=== PATIENT | female | born 1935 | race Caucasian/White ===

== ENCOUNTER 2021-01-12 17:42 | Inpatient (IN) ==
[2021-01-12 18:47] LABS: Hematocrit (blood only) 41.4 % (37-47); Hemoglobin 13.7 g/dL (12.0-16.0); Mean Corpuscular Hemoglobin 28.2 pg (25-34); Mean Corpuscular Hgb Conc 33.1 g/dL (32-36); Mean Corpuscular Volume 85.2 fL (80-100); Mean Platelet Volume 8.3 fL (7.4-10.4); Platelet Count 188 K/uL (130-400); RDW Coefficient of Variation 14.3 % (11.5-14.5); RDW Standard Deviation 44.5 fL (36.4-46.3); Red Blood Count 4.86 M/uL (4.2-5.4); White Blood Count 8.58 K/uL (4.8-10.8)
[2021-01-12 19:02] LABS: Partial Thromboplastin Time 26.5 Seconds (21.0-31.0); Prothrombin Time 9.8 Seconds (9.0-12.0)
[2021-01-12 19:03] LABS: Albumin Level 3.7 gm/dl (3.4-5.0); BUN Creatinine Ratio 20.3 (10-20); Calcium 9.2 mg/dl (8.5-10.1); Creatinine Clr Calc Pharmacy 31.9 ml/min; Est GFR (African American) 45.6 ml/min; Est GFR (Non-African American) 39.4 ml/min; Potassium 3.9 mmol/L (3.5-5.1)
[2021-01-12 19:06] LABS: Bilirubin,Total 0.5 mg/dl (0.2-1); Globulin 3.9 gm/dl (2.5-4.0); Total Protein 7.6 gm/dl (6.4-8.2)
[2021-01-12] MEDS ORDERED: SODIUM CHLORIDE 0.9% 500 ML IV ONE (20:30)
[2021-01-12] MEDS ORDERED: OPTIRAY 300 100mL IV ONE (21:20)
--- NOTE | 2021-01-12 22:35 | Emergency Department Note ---
Impression & Plan Hematochezia, Colitis, Left lower quadrant abdominal pain ED Provider Note NAME: ANNEMARIE ALY AGE: 85 SEX: F ARRIVES VIA: Walk-In INFORMANT: Patient, ED PROVIDER(S): Tarv Walker MD CHIEF COMPLAINT: Blood per rectum, abdominal pain. PLAN: Disposition: Admit MEDICAL DECISION MAKING: The patient is a pleasant 85-year-old woman who presents to the emergency department company by her daughter with concern for red blood per rectum where she reports at one point had greenish discharge as well. Otherwise she denies any recent fevers, chills, cough, congestion, nausea, vomiting, chest pain, shortness of breath, lightheadedness. They do relate that they have been under significant stress as the patient's yesterday here in the hospital. Patient reports that she did feel the need to strain and have a bowel movement preceding the onset of her symptoms. She denies any prior history of similar bleeding. She is not on any anticoagulation. On arrival the patient is no acute distress, afebrile stable vital signs. She appears clinically dry. She has mild left lower abdominal discomfort without discrete tenderness. No thrombosed external hemorrhoids. WBC, H/H and platelets within normal limits. Chemistry without metabolic acidosis. Creatinine 1.26, slightly increased from prior consistent with the patient's clinical dry appearance. LFTs without significant abnormality. Patient did attempt to move her bowels in the emergency department and gross blood was noted. CT scan of the pelvis was performed and per preliminary stat rad report demonstrates findings suggestive of mild colitis. Given the patient's suspected lower GI bleed/hemorrhagic colitis reasonable to admit the patient for further management. The patient and daughter are in agreement with this. Case was discussed with Dr. Monet, [facility] hospitalist, who will evaluate the patient for admission. Triage Nursing notes reviewed and agree them. Prior medical records reviewed Vital Signs: reviewed and remarkable for no significant abnormalities Differential diagnosis: Diverticulosis, AVM, coagulopathy, colitis, inflammatory bowel disease, malignancy, Bree-Fernandez tear, esophagitis, peptic ulcer disease, variceal bleed, gastritis, epistaxis, fissure, hemorrhoids, as well as other pathologies. ER treatment provided: See below. Diagnostics interpreted by me: Cardiac Monitoring: An order for continuous cardiac monitoring was placed and demonstrated NSR, 82 bpm, no ectopy. Laboratory studies: See below Imaging studies: [facility] Preliminary Findings Only See Final Report For Complete Findings CT ABDOMEN & PELVIS With Contrast: Distal colonic wall thickening could reflect lack of distention, but there is some pericolonic stranding about the distal descending segment. Consider a mild colitis. No pneumatosis to suggest ischemic etiology. No obstruction or perforation. Cholelithiasis without evidence of gallbladder inflammation. Unremarkable appendix. Hysterectomy. Small fatty infraumbilical ventral hernia. Radiologist: Juan Zaman M.D. Study ready at 21:30 and initial results transmitted at 22:00 Consultation(s): Case was discussed with Dr. Monet, [facility] hospitalist, who will evaluate the patient for admission. HPI: The patient is a pleasant 85-year-old woman who presents to the emergency department company by her daughter with concern for red blood per rectum where she reports at one point had greenish discharge as well. Otherwise she denies any recent fevers, chills, cough, congestion, nausea, vomiting, chest pain, shortness of breath, lightheadedness. They do relate that they have been under significant stress as the patient's yesterday here in the hospital. Patient reports that she did feel the need to strain and have a bowel movement preceding the onset of her symptoms. She denies any prior history of similar bleeding. She is not on any anticoagulation. ROS: See above HPI for pertinent positives & negatives. A total of 10 systems reviewed and were otherwise negative. PAST MEDICAL HISTORY:See Below PAST SURGICAL HISTORY:See Below FAMILY HISTORY:See Below SOCIAL HISTORY:See Below HOME MEDICATIONS:See Below ALLERGIES:See Below VITALS:See Below PHYSICAL EXAMINATION: GENERAL: Awake, alert, fatigued-appearing, in no distress HENT: Normocephalic, atraumatic. Oropharynx with dry mucous membranes and otherwise unremarkable. EYES: Normal conjunctiva. Sclera non-icteric. NECK: Supple. No nuchal rigidity. FROM. No JVD. RESPIRATORY: Clear to auscultation. CARDIAC: Regular rate, normal rhythm. Extremities warm and well perfused. Pulses equal. ABDOMEN: Soft, non-distended. Mild left lower abdominal discomfort without discrete tenderness. No rebound or guarding. No masses. RECTAL: No thrombosed external hemorrhoids. MUSCULOSKELETAL: Chest examination reveals no tenderness. The back is symmetrical on inspection without obvious abnormality. There is no CVA tenderness to palpation. No joint edema. LOWER EXTREMITIES: Calves are equal size bilaterally and non-tender. No edema. No discoloration. NEURO: Normal sensorium. No sensory or motor deficits noted. SKIN: No rash or jaundice noted. Trav Walker MD Past Med/Surg History Medical History (Updated 01/13/21 @ 02:34 by Trav Walker MD) CKD (chronic kidney disease), stage III DM type 2 (diabetes mellitus, type 2) Dyslipidemia HTN (hypertension) Obesity (BMI 30-39.9) Osteoarthritis Osteoporosis Vitamin D deficiency Surgical History S/P cataract extraction S/P hysterectomy Family History (Updated 09/02/18 @ 13:43 by Matthias Bradley MD) Other Diabetes Social History (Updated 09/02/18 @ 13:44 by Matthias Bradley MD) Smoking Status: Never smoker Hx Alcohol Use: No Hx Substance Use: No Preferred Language: Mongolian Communication Ability: Effective Commercial Fisherman Required: No Beliefs That Will Affect Care: None Current Living Situation: Alone 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 Feels Safe at Home: Yes Safety Concerns: Feels Safe At This Time Assistive Devices: Denture - Upper, Denture - Lower and Glasses Allergies Allergies Allergy/AdvReac Type Severity Reaction Status Date / Time No Known Allergies Allergy Verified 01/12/21 20:43 Home Meds Home Medications Medication Instructions Recorded Confirmed alendronate 70 mg PO WK 09/01/18 01/12/21 aspirin [Aspirin Low Dose] 81 mg PO DAILY 09/01/18 01/12/21 atorvastatin 20 mg PO PM 09/01/18 01/12/21 lisinopril 10 mg PO DAILY 09/01/18 01/12/21 metformin 500 mg PO QAM 09/01/18 01/12/21 buspirone 10 mg PO DAILY 01/12/21 01/12/21 Results & Data (ED) Vital Signs Vital Signs - 24 hr 01/12/21 17:49 01/12/21 23:02 Temperature 36.6 C Temperature Source Temporal Artery Scan Pulse Rate 115 H 73 Pulse Rate [Apical] 75 Pulse Rhythm Regular Respiratory Rate 20 17 Respiratory Effort / Characteristics Non-Labored Respiratory Depth Normal Normal Blood Pressure 156/76 H Blood Pressure [Right Arm] 148/85 H Blood Pressure Mean 102 Blood Pressure Mean [Right Arm] 106 Blood Pressure Position [Right Arm] Lying Pulse Oximetry 99 96 Oxygen Delivery Method Room Air Room Air Sepsis Recent Fever Within 48 Hours No Sepsis New/Unexplained Change in Mental Status N/A Sepsis Action Taken by Nursing No Action Required Laboratory Data Attestation: I reviewed the patient's lab results. Result diagrams: 01/12/21 18:37 01/12/21 18:37 Lab Results 01/12/21 01/12/21 01/12/21 Range/Units 18:37 18:37 18:37 WBC 8.58 (4.8-10.8) K/uL RBC 4.86 (4.2-5.4) M/uL Hgb 13.7 (12.0-16.0) g/dL Hct 41.4 (37-47) % MCV 85.2 (80-100) fL MCH 28.2 (25-34) pg MCHC 33.1 (32-36) g/dL RDW Std Deviation 44.5 (36.4-46.3) fL RDW Coeff of Sam 14.3 (11.5-14.5) % Plt Count 188 (130-400) K/uL MPV 8.3 (7.4-10.4) fL PT 9.8 (9.0-12.0) Seconds INR 1.0 (0.9-1.1) APTT 26.5 (21.0-31.0) Seconds PTT Ratio 1.0 Sodium 139 (136-145) mmol/L Potassium 3.9 (3.5-5.1) mmol/L Chloride 106 (98-107) mmol/L Carbon Dioxide 27 (21-32) mmol/L Anion Gap 6.0 (3-11) BUN 26 H (7-18) mg/dl Creatinine 1.26 H (0.6-1.2) mg/dl Est Cr Clr Drug Dosing 31.9 ml/min Est GFR ( Amer) 45.6 ml/min Est GFR (Non-Af Amer) 39.4 ml/min BUN/Creatinine Ratio 20.3 H (10-20) Glucose 159 H (70-99) mg/dl Calcium 9.2 (8.5-10.1) mg/dl Total Bilirubin 0.5 (0.2-1) mg/dl AST 12 L (15-37) U/L ALT 19 (12-78) U/L Alkaline Phosphatase 84 (45-117) U/L Total Protein 7.6 (6.4-8.2) gm/dl Albumin 3.7 (3.4-5.0) gm/dl Globulin 3.9 (2.5-4.0) gm/dl Albumin/Globulin Ratio 1.0 (0.9-2) COVID-19 Eval Order SARS-CoV-2 (PCR) (Negative) Blood Type Antibody Screen 01/12/21 01/12/21 01/12/21 Range/Units 20:47 22:56 22:56 WBC (4.8-10.8) K/uL RBC (4.2-5.4) M/uL Hgb (12.0-16.0) g/dL Hct (37-47) % MCV (80-100) fL MCH (25-34) pg MCHC (32-36) g/dL RDW Std Deviation (36.4-46.3) fL RDW Coeff of Sam (11.5-14.5) % Plt Count (130-400) K/uL MPV (7.4-10.4) fL PT (9.0-12.0) Seconds INR (0.9-1.1) APTT (21.0-31.0) Seconds PTT Ratio Sodium (136-145) mmol/L Potassium (3.5-5.1) mmol/L Chloride (98-107) mmol/L Carbon Dioxide (21-32) mmol/L Anion Gap (3-11) BUN (7-18) mg/dl Creatinine (0.6-1.2) mg/dl Est Cr Clr Drug Dosing ml/min Est GFR ( Amer) ml/min Est GFR (Non-Af Amer) ml/min BUN/Creatinine Ratio (10-20) Glucose (70-99) mg/dl Calcium (8.5-10.1) mg/dl Total Bilirubin (0.2-1) mg/dl AST (15-37) U/L ALT (12-78) U/L Alkaline Phosphatase (45-117) U/L Total Protein (6.4-8.2) gm/dl Albumin (3.4-5.0) gm/dl Globulin (2.5-4.0) gm/dl Albumin/Globulin Ratio (0.9-2) COVID-19 Eval Order Covid19 at [facility] SARS-CoV-2 (PCR) NEGATIVE (Negative) Blood Type A Positive Antibody Screen NEGATIVE Administered Medications Discontinued Medications Sodium Chloride (Nss) 500 mls @ 999 mls/hr IV .Q31M ONE Stop: 01/12/21 21:00 Last Infusion: 01/12/21 21:50 Dose: 0 mls/hr Documented by: [id number] Admin: 01/12/21 20:55 Dose: 999 mls/hr Documented by: [id number] Sodium Chloride (Nss) 500 mls @ 125 mls/hr IV .Q4H DELICIA Stop: 02/11/21 22:44 Last Admin: 01/12/21 23:08 Dose: 125 mls/hr Documented by: [id number] Ioversol (Optiray 300 100ml) 88 ml IV ONCE ONE Stop: 01/12/21 21:21 Last Admin: 01/12/21 21:20 Dose: 100 ml Documented by: [id number] Discharge Plan Visit Data Chief Complaint: Rectal Bleed Stated Complaint: RECTAL BLEED, NAUSEA ED Provider: Trav Walker Discharge Problem: Hematochezia, Colitis, Left lower quadrant abdominal pain Patient Disposition: Admitted As Inpatient Discharge Instructions Interventions: ED Discharge Assessment Last Done: 01/13/21 01:35
[2021-01-12] MEDS ORDERED: SODIUM CHLORIDE 0.9% 500 ML IV SCH (22:45)
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
[2021-01-13] MEDS ORDERED: MoRPHine SULFATE 2 MG/ML CARP IV PRN (02:02)
[2021-01-13] MEDS ORDERED: PIPERACILL/TAZOBAC CONSULT ACTIVE PRN (02:02)
[2021-01-13] MEDS ORDERED: NITROGLYCERIN SL 0.4 MG/TAB TAB SL PRN (02:02)
[2021-01-13] MEDS ORDERED: ONDANSETRON INJ 2 MG/ML 2 ML VIAL IV PRN (02:02)
[2021-01-13] MEDS ORDERED: GLUCOSE 10 TABS/TUBE PO PRN (02:30)
[2021-01-13] MEDS ORDERED: PIPERACILLIN/TAZOBACTAM 4.5 GM in DEXTROSE 5% 100 ML IV ONE (02:30)
[2021-01-13] MEDS ORDERED: DEXTROSE 50% 50 ML SYRINGE IV PRN (02:30)
[2021-01-13] MEDS ORDERED: CARBOHYDRATES FOR HYPOGLYCEMIA PO PRN (02:30)
[2021-01-13] MEDS ORDERED: GLUCAGON FOR INJ 1 MG VIAL IM PRN (02:30)
[2021-01-13] MEDS ORDERED: GLUCOSE 40% GEL 15 GM TUBE PO PRN (02:30)
[2021-01-13] MEDS: SODIUM CHLORIDE 0.9% 1000ML 1,000 ML IV SCH ×4 (02:54→20:23)
[2021-01-13] MEDS: ACETAMINOPHEN 325 MG TAB PO PRN (03:47)
[2021-01-13] MEDS: INSULIN ASPART 100 UNITS/ML 3 ML PEN SC SCH ×4 (06:01→23:58)
[2021-01-13 06:14] LABS: Basophils # (auto) 0.01 K/uL (0-0.2); Basophils % (auto) 0.2 %; Eosinophils # (auto) 0.14 K/uL (0-0.5); Eosinophils % (auto) 2.2 %; Hematocrit (blood only) 36.9 % (37-47); Hemoglobin 12.4 g/dL (12.0-16.0); Immature Granulocytes # (auto) 0.02 K/uL (0.00-0.02); Immature Granulocytes % (auto) 0.3 %; Lymphocytes # (auto) 1.85 K/uL (1.2-3.4); Mean Corpuscular Hemoglobin 28.1 pg (25-34); Mean Corpuscular Hgb Conc 33.6 g/dL (32-36); Mean Corpuscular Volume 83.7 fL (80-100); Mean Platelet Volume 8.4 fL (7.4-10.4); Monocytes # (auto) 0.39 K/uL (0.11-0.59); Monocytes % (auto) 6.1 %; Neutrophils # (auto) 3.98 K/uL (1.4-6.5); Neutrophils % (auto) 62.2 %; Platelet Count 149 K/uL (130-400); RDW Coefficient of Variation 14.2 % (11.5-14.5); RDW Standard Deviation 43.1 fL (36.4-46.3); Red Blood Count 4.41 M/uL (4.2-5.4); White Blood Count 6.39 K/uL (4.8-10.8)
[2021-01-13 06:58] LABS: BUN Creatinine Ratio 24.3 (10-20); Calcium 7.9 mg/dl (8.5-10.1); Creatinine Clr Calc Pharmacy 49.7 ml/min; Est GFR (African American) 77.8 ml/min; Est GFR (Non-African American) 67.2 ml/min; Potassium 3.6 mmol/L (3.5-5.1)
[2021-01-13 07:39] LABS: Estimated Average Glucose 151 mg/dl; Hemoglobin A1C 6.9 % (4.5-5.6)
--- NOTE | 2021-01-13 07:54 | CT Scan Report ---
ABDOMEN AND PELVIS CT WITH IV CONTRAST CT DOSE: 750.56 mGy.cm HISTORY: hematochezia, lower abdominal pain TECHNIQUE: Multiaxial CT images of the abdomen and pelvis were performed following the use of intrave nous contrast. A dose lowering technique was utilized adhering to the principles of ALARA. COMPARISON STUDY: None. FINDINGS: A 3 mm nodule within the base the right lower lobe image 37. This is of doubtful clinical s ignificance given the patient's age. The left lung base is clear. No pneumoperitoneum. No pneumatosis . No suspicious lytic are blastic osseous lesions. Cholelithiasis. No gallbladder wall thickening. Th e liver, spleen, adrenal glands, and pancreas are unremarkable. Mild bilateral cortical renal scarrin g. No hydronephrosis. No retroperitoneal lymphadenopathy. Mild calcified plaque within the normal ronal iber abdominal aorta. Prior hysterectomy. The bladder is unremarkable. No evidence for bowel obstruct ion. Normal appendix. Questionable thickening of the descending colon and sigmoid colon which could b e due to underdistention. There appears to be minimal pericolonic fat stranding at the distal descend ing colon. Therefore, a low-grade distal colitis would be the diagnosis of exclusion. The main portal vein is patent. IMPRESSION: 1. Questionable thickening of the descending colon and sigmoid colon which could be due to underdiste ntion. There appears to be minimal pericolonic fat stranding at the distal descending colon. Therefor e, a low-grade distal colitis would be the diagnosis of exclusion. 2. No evidence for bowel obstruction. 3. Cholelithiasis. 4. Normal appendix. 5. Hysterectomy. ACT 112: Negative or not required by law. Electronically signed by: Clifford Escobar M.D. 01/13/2021 7:53 AM
[2021-01-13] MEDS: lisinopril 10 MG TAB PO SCH (08:23)
[2021-01-13] MEDS: PANTOprazole 40 MG in SYRINGE 0 ML IV SCH ×2 (08:23→21:01)
[2021-01-13] MEDS: busPIRone 5 MG TAB PO SCH (08:24)
[2021-01-13] MEDS: PIPERACILLIN/TAZOBACTAM 3.375 GM in DEXTROSE 5% 100 ML IV SCH ×2 (08:29→16:20)
--- NOTE | 2021-01-13 08:53 | Gastrointestinal Consultation ---
Date of Consultation January 13, 2021 Assessment & Plan (1) Hematochezia: (2) Colitis: Pt is a 85 y/o female who is admitted w rectal bleeding, CT evidence of distal colon colitis w/o obstruction. Blood ct stable overnight. DDx: infectious vs ischemic colitis, less likely IBD, malignancy - CL diet, advance as tolerated - Stool cx and Cdiff - Dicyclomine 10mg BID for abd cramping - Plan for outpt colonoscopy eval (never had one for screening before) in 4-6 weeks' time Supervising Physician Co-Signing Physician Notes I have seen and examined the patient with TREVIN Larry whose note reflects our findings and plan. Patient with blood in stool. Studies pending. Just lost her this week. Hemodynamically stable. Stable for discharge to home. Will arrange an outpatient colonoscopy in 6 weeks. please call with questions. History of Present Illness Reason for Consultation: Abdominal pain, rectal bleeding Requesting Physician: Dr. Garett Em Attending Physician: Dr. Mamta Forman History of Present Illness Pt is a 85 y/o female who presented yesterday w c/o lower abd pain, nausea and rectal bleeding. She was resting when she suddenly felt urge to defecate, had r ectal bleeding and greenish discharge afterwards. She felt diaphoretic and nauseous but denies any vomiting, nor syncope, light headedness. She was taken to ED by family. On exam she did not have any signs of hemorrhoids, but stool was heme positive. She did have another episode of gross rectal bleeding while in ED. H/H normal. BUN mildly up in 20s which is close to her baseline. INR 1.2, Plt 148. CT abd/pelvis showed ? thickening of the descending colon and sigmoid colon which could be due to underdistention. There appears to be minimal pericolonic fat stranding at the distal descending colon which suggest low grade distal colitis, no bowel obstruction noted. Pt on baby ASA, no anticoagulants. Denies NSAIDs, recent antibx, sick contact, travels, consumption of raw/undercooked foods. Denies family hx of colorecta ca. Denies hx of colonoscopy for colorectal ca screening before. Noted just 2 days ago. Allergies Allergy/AdvReac Type Severity Reaction Status Date / Time No Known Allergies Allergy Verified 05/18/21 20:43 Home Medications Medication Instructions Recorded Confirmed Type alendronate 70 mg PO WK 09/01/18 01/12/21 History aspirin [Aspirin Low Dose] 81 mg PO DAILY 09/01/18 01/12/21 History atorvastatin 20 mg PO PM 09/01/18 01/12/21 History lisinopril 10 mg PO DAILY 09/01/18 01/12/21 History metformin 500 mg PO QAM 09/01/18 01/12/21 History buspirone 10 mg PO DAILY 01/12/21 01/12/21 History Patient History Medical History CKD (chronic kidney disease), stage III DM type 2 (diabetes mellitus, type 2) Dyslipidemia HTN (hypertension) Obesity (BMI 30-39.9) Osteoarthritis Osteoporosis Vitamin D deficiency Surgical History S/P cataract extraction S/P hysterectomy Family History Other Diabetes Social History Smoking Status: Never smoker Hx Alcohol Use: No Hx Substance Use: No Preferred Language: Colombian Communication Ability: Effective Radiation Oncology Manager Required: No Beliefs That Will Affect Care: None marital status: / Current Living Situation: Alone 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 How many Children do You have: 4 Feels Safe at Home: Yes Safety Concerns: Feels Safe At This Time Assistive Devices: None Review of Systems Review of Systems: All systems reviewed & are unremarkable except as noted in HPI & below Physical Exam Constitutional: WD/WN, vitals as above well groomed, cooperative and comfortable Eyes: PERRL, conjunctivae normal, anicteric sclerae ENMT: external ear and nose normal, oropharynx normal Respiratory: normal respiratory effort, lungs clear to auscultation Cardiovascular: RRR, no murmur, no edema Gastrointestinal (Abdomen): Inspection/Auscultation: normal bowel sounds and + hypoactive bowel sounds Percussion/Palpation: + abdomen tender (Across lower abd) and abdomen soft Skin: no rashes, warm and dry no jaundice Psychiatric: A+Ox3, euthymic affect Lymphatic: no lymphedema Results & Data ([facility]) Vital Signs (Past 12 Hours) Vital Signs Temp Pulse Pulse Resp BP BP Pulse Ox 01/13/21 07:34 36.6 C 65 20 134/80 98 01/13/21 03:32 36.7 C 70 18 134/71 96 01/13/21 02:03 36.6 C 82 16 163/84 H 97 01/13/21 01:00 74 18 120/72 96 01/12/21 23:02 73 75 17 148/85 H 96
[2021-01-13] MEDS: DICYCLOMINE HCL 10 MG CAP PO SCH ×2 (09:23→21:01)
[2021-01-13 11:22] LABS: Hematocrit (blood only) 38.4 % (37-47); Hemoglobin 12.6 g/dL (12.0-16.0)
--- NOTE | 2021-01-13 16:47 | Hospitalist Progress Note ---
Date of Service January 13, 2021 Assessment & Plan (1) Colitis: (2) Hematochezia: Present on admission with abdominal pain associated with rectal bleeding: CT abd/pelvis showed questionable thickening of the descending colon and sigmoid colon which could be due to underdistention. There appears to be minimal pericolonic fat stranding at the distal descending colon. FOBT positive Gastro on board recommended conservative management Started on clear liquid diet, will advance to full liquid Continue IV zosyn dfor now and PPI for now Hgb stable at 12.6 Continue to hold aspirin Continue Dicyclomine 10mg BID for abd cramping Plan for outpt colonoscopy eval (never had one for screening before) in 4-6 weeks' time Continue monitor H/H Acute kidney injury on chronic kidney disease stage III: Creatinine 1.2, Baseline creatinine around 1 Continue IVF Continue monitor BMP History of hyperlipidemia: Continue statin. History of hypertension: Continue lisinopril, withholding parameters. History of diabetes: Continue to hold metformin On insulin sliding scale. DVT px on SCDs due to GI bleed CODE STATUS FULL CODE Admission and Anticipated Discharge Date Admission Date: January 12, 2021 Subjective Pt was seen and examined for follow up GI bleed sitting in chair with no distress Pt said that her last bowel movement has no blood Denies any chest pain, palpitation, dizziness and SOB Review of Systems Review of Systems: All systems reviewed & are unremarkable except as noted in Subjective Physical Exam Physical Exam: General- No acute distress Head- atraumatic Eyes- PERRL, EOMI, ENT- oropharynx clear Neck- supple, no JVD Lungs- clear to auscultation Heart- regular rhythm; no murmur Abdomen- normal bowel sounds, soft, nontender Extremities- no calf tenderness Neuro- alert, oriented x 3; PERRL, EOMI; no facial palsy; no dysarthria Skin- warm & dry Results & Data Results & Data ([facility]) Vital Signs (Past 12 Hours) Vital Signs Temp Pulse Resp BP BP Pulse Ox 01/13/21 15:32 36.4 C L 51 L 20 144/78 H 98 01/13/21 11:24 36.4 C L 51 L 20 127/65 98 01/13/21 07:34 36.6 C 65 20 134/80 98
[2021-01-13 17:03] LABS: Hematocrit (blood only) 38.1 % (37-47); Hemoglobin 12.5 g/dL (12.0-16.0)
[2021-01-13] MEDS ORDERED: MELATONIN 3 MG TAB PO PRN (21:11)
[2021-01-13 23:49] LABS: Hematocrit (blood only) 33.5 % (37-47)
[2021-01-14] MEDS: PIPERACILLIN/TAZOBACTAM 3.375 GM in DEXTROSE 5% 100 ML IV SCH ×2 (00:14→08:37)
[2021-01-14] MEDS: ACETAMINOPHEN 325 MG TAB PO PRN (04:01)
[2021-01-14] MEDS ORDERED: Nursing to Pharmacy Communication SCH (05:30)
[2021-01-14 07:23] LABS: Hematocrit (blood only) 35.7 % (37-47); Hemoglobin 11.5 g/dL (12.0-16.0); Mean Corpuscular Hemoglobin 27.8 pg (25-34); Mean Corpuscular Hgb Conc 32.2 g/dL (32-36); Mean Corpuscular Volume 86.2 fL (80-100); Mean Platelet Volume 8.5 fL (7.4-10.4); Platelet Count 153 K/uL (130-400); RDW Coefficient of Variation 14.5 % (11.5-14.5); RDW Standard Deviation 45.3 fL (36.4-46.3); Red Blood Count 4.14 M/uL (4.2-5.4); White Blood Count 5.34 K/uL (4.8-10.8)
[2021-01-14 07:53] LABS: BUN Creatinine Ratio 15.3 (10-20); Calcium 8.2 mg/dl (8.5-10.1); Creatinine Clr Calc Pharmacy 41.5 ml/min; Est GFR (African American) 61.1 ml/min; Est GFR (Non-African American) 52.7 ml/min; Potassium 3.9 mmol/L (3.5-5.1)
[2021-01-14] MEDS: INSULIN ASPART 100 UNITS/ML 3 ML PEN SC SCH ×2 (08:15→12:00)
[2021-01-14] MEDS: lisinopril 10 MG TAB PO SCH (08:38)
[2021-01-14] MEDS: PANTOprazole 40 MG in SYRINGE 0 ML IV SCH (08:38)
[2021-01-14] MEDS: DICYCLOMINE HCL 10 MG CAP PO SCH (08:39)
[2021-01-14] MEDS: busPIRone 5 MG TAB PO SCH (08:39)
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
== END 2021-01-14 15:30 | disposition home or self-care (01) | DRG 392 ==
LOC: ED 17:42 → SUATTDRO 23:15 → 2S 23:15

== ENCOUNTER 2021-01-18 20:43 | Observation (INO) ==
[2021-01-18] MEDS ORDERED: fentaNYL citrate 100 MCG/2 ML VIAL IV STA (22:04)
[2021-01-18 22:46] LABS: Basophils # (auto) 0.01 K/uL (0-0.2); Basophils % (auto) 0.1 %; Eosinophils # (auto) 0.11 K/uL (0-0.5); Eosinophils % (auto) 1.6 %; Hematocrit (blood only) 36.4 % (37-47); Immature Granulocytes # (auto) 0.02 K/uL (0.00-0.02); Immature Granulocytes % (auto) 0.3 %; Lymphocytes # (auto) 1.33 K/uL (1.2-3.4); Lymphocytes % (auto) 19.9 %; Mean Corpuscular Hemoglobin 27.5 pg (25-34); Mean Corpuscular Volume 83.5 fL (80-100); Monocytes # (auto) 0.34 K/uL (0.11-0.59); Monocytes % (auto) 5.1 %; Neutrophils # (auto) 4.89 K/uL (1.4-6.5); Platelet Count 109 K/uL (130-400); RDW Coefficient of Variation 14.3 % (11.5-14.5); RDW Standard Deviation 43.2 fL (36.4-46.3); Red Blood Count 4.36 M/uL (4.2-5.4)
[2021-01-18 23:09] LABS: Alanine Aminotransferase 16 U/L (12-78); Albumin Level 3.2 gm/dl (3.4-5.0); Aspartate Aminotransferase 8 U/L (15-37); BUN Creatinine Ratio 19.7 (10-20); Blood Urea Nitrogen 19 mg/dl (7-18); Calcium 8.9 mg/dl (8.5-10.1); Carbon Dioxide 29 mmol/L (21-32); Chloride 104 mmol/L (98-107); Creatinine Clr Calc Pharmacy 43.1 ml/min; Est GFR (African American) 63.4 ml/min; Est GFR (Non-African American) 54.7 ml/min; Glucose 107 mg/dl (70-99); Lipase 104 U/L (73-393); Potassium 3.7 mmol/L (3.5-5.1); Sodium 139 mmol/L (136-145)
[2021-01-18 23:14] LABS: Albumin Globulin Ratio 0.9 (0.9-2); Alkaline Phosphatase 66 U/L (45-117); Bilirubin,Total 0.7 mg/dl (0.2-1); Globulin 3.4 gm/dl (2.5-4.0); Total Protein 6.6 gm/dl (6.4-8.2); Troponin I < 0.015 ng/ml (0-0.045)
[2021-01-18 23:26] LABS: Prothrombin Time 10.1 Seconds (9.0-12.0)
--- NOTE | 2021-01-18 23:39 | Emergency Department Note ---
Impression & Plan Pain and swelling of right lower extremity, Petechial rash, Burn erythema of right lower extremity ED Provider Note Provider: Victor Manuel Devries MD DATE OF SERVICE: 01/18/2021 CHIEF COMPLAINT: Right lower leg swelling and rash HISTORY OF PRESENT ILLNESS: Patient is a 85-year-old female with a significant past medical history including CKD, type 2 diabetes, and recent hospitalization this past week for melanotic stools presenting here today reporting 6 days ago nation little bit of redness around her right ankle. This worsened particularly today is become painful with redness filling from the ankle along the posterior calf which has been more firm into the right inner distal thigh. Denies any trauma or falls. Denies any new numbness or tingling but states it is a burning pain. States the pain is bad as it made her somewhat sick to her stomach earlier. Patient just finished her dose of Augmentin from her prior hospitalization for diverticular bleeding tonight. Denies history of similar issues with the legs. States there is maybe some slight swelling of the left leg but nothing like the right. Denies any chest pain states she has some slight shortness of breath but this not significantly changed. Denies any fevers to me. Has not take anything at home beyond some Tylenol for pain. Patient denies abdominal pain at this time or nausea. Patient is walking bit slower but has been able to ambulate per her report. REVIEW OF SYSTEMS: A total of 10 review of systems was obtained and negative except as stated above in the HPI. PAST MEDICAL HISTORY: As noted above MEDICATIONS: Reviewed home medication list, finishing Augmentin tonight SOCIAL HISTORY: Non-smoker, lives at home PHYSICAL EXAM: GENERAL: alert and oriented in no acute distress on stretcher Head: normocephalic and atraumatic EYES: No injection, discharge or icterus. NECK: Trachea midline. LUNGS: Airway patent. No retractions without tachypnea. Lungs are clear bilaterally. HEART: Regular rate and rhythm. No chest wall tenderness ABDOMEN: Soft and non-tender, without guarding or rebound. SKIN: Acyanotic, warm, dry EXTREMITIES: Without swelling, tenderness or deformity EXCEPT for 1+ swelling of the right lower leg and posterior calf with some diffuse petechiae here and some slight redness from the right ankle more proximally along the anterior colby and calf and way around the lower leg. Some slight areas of red petechiae noted on the distal right thigh as well. No crepitus. No lacerations or abrasions appreciated. NEUROLOGICAL: No focal deficits. No aphasia. No facial droop or slurred speech. Normal strength and tone in the extremities. Sensation to gross touch normal. Ambulatory. EK bpm normal sinus rhythm with sinus arrhythmia. No PVC or PAC. No acute ST segment elevation or depression appreciated. QTc 439. PDMP was checked without noted issue. 1 view chest x-ray per my interpretation without evidence of pneumonia pneumothorax. No significant pleural effusions appreciated fluid overload. Patient's laboratory studies and imaging reviewed. Differential includes DVT, musculoskeletal, infection, joint effusion, trauma, lymphedema, idiopathic, CHF, as well as other pathologies. IMPRESSION/MEDICAL DECISION MAKING: Patient presents with some petechiae and redness and swelling and burning pain to the right lower leg. Benign abdomen otherwise and denies fever. Not hypoxic here. Denies chest pain but maybe a little bit of shortness of breath. Basic blood work here without significant anemia or leukocytosis. No significant electrolyte abnormality negative troponin EKG is not impressive for cardiac issues. X-ray without evidence of fluid overload. Question possible DVT and ultrasound was completed as below without evidence of DVT in the right lower leg. Does not seem centered around the joint and I doubt this is crystal disease or septic joint. Soft compartments and I doubt this is compartment syndrome. No findings concerning at this point for necrotizing fasciitis. Has been on Augmentin finished tonight. Blood work does show a little bit of thrombocytopenia and question if this is contributing to some of her symptoms given some of the petechiae seen in the right lower extremity today. Question if her symptoms are related to a mild vasculitis and thrombocytopenia versus possible infectious cause as we do not see evidence of DVT. The patchy nature of the erythema and petechiae does not seem that consistent with infectious et iology. Again question of possible vasculitis. Discussed with the patient and her family at bedside options including close outpatient monitoring and RICE. Patient currently lives at home alone as her recently and shared decision-making she felt on comfort going home. Still endorses a burning pain declined the fentanyl but will order some gabapentin to see if this helps. Covid testing be completed. Again she felt uncomfortable at home and wished for further observation to ensure given the rapid spread today that things stabilize and improve regarding her pain and petechial erythema of the right lower leg. The hospitalist was contacted. DIAGNOSIS: Right leg pain, erythema, and swelling. DISPOSITION: Hospitalist will evaluate Preliminary Findings Only See Final Report For Complete Findings US VENOUS RIGHT LOWER EXTREMITY: Negative right lower extremity venous duplex ultrasound. There is no evidence of DVT. Radiologist: Victor Manuel Pratt MD Study ready at 23:44 and initial results transmitted at 00:02 Past Med/Surg History Medical History CKD (chronic kidney disease), stage III DM type 2 (diabetes mellitus, type 2) Dyslipidemia HTN (hypertension) Obesity (BMI 30-39.9) Osteoarthritis Osteoporosis Vitamin D deficiency Surgical History S/P cataract extraction S/P hysterectomy Family History Other Diabetes Social History Smoking Status: Never smoker Hx Alcohol Use: No Hx Substance Use: No Preferred Language: Armenian Communication Ability: Effective General Ledger Bookkeeper Required: No Beliefs That Will Affect Care: None marital status: / Current Living Situation: Alone 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 How many Children do You have: 4 Feels Safe at Home: Yes Assistive Devices: None Allergies Allergies Allergy/AdvReac Type Severity Reaction Status Date / Time No Known Allergies Allergy Verified 01/18/21 21:59 Home Meds Home Medications Medication Instructions Recorded Confirmed aspirin [Aspirin Low Dose] 81 mg PO DAILY 09/01/18 01/18/21 atorvastatin 20 mg PO PM 09/01/18 01/18/21 lisinopril 10 mg PO DAILY 09/01/18 01/18/21 metformin 500 mg PO QAM 09/01/18 01/18/21 buspirone 10 mg PO BID PRN 01/12/21 01/18/21 Results & Data (ED) Vital Signs Vital Signs - 24 hr 01/18/21 20:47 01/18/21 21:35 01/18/21 22:37 Temperature 36.6 C Temperature Source Temporal Artery Scan Pulse Rate 98 H 85 Pulse Rate from SpO2 Sensor Respiratory Rate 18 19 17 Respiratory Effort / Characteristics Non-Labored Respiratory Depth Normal Blood Pressure 166/89 H Blood Pressure [Right Arm] 156/67 H Blood Pressure Mean 114 Blood Pressure Mean [Right Arm] 96 Blood Pressure Position Sitting Blood Pressure Position [Right Arm] Sitting Pulse Oximetry 97 100 Oxygen Delivery Method Room Air Room Air Sepsis Recent Fever Within 48 Hours No Sepsis New/Unexplained Change in Mental Status No Sepsis Action Taken by Nursing No Action Required 01/18/21 22:40 01/18/21 22:45 01/18/21 23:00 Temperature Temperature Source Pulse Rate 83 83 83 Pulse Rate from SpO2 Sensor Respiratory Rate 20 16 22 Respiratory Effort / Characteristics Respiratory Depth Blood Pressure 149/70 H 149/63 H Blood Pressure [Right Arm] Blood Pressure Mean 96 91 Blood Pressure Mean [Right Arm] Blood Pressure Position Blood Pressure Position [Right Arm] Pulse Oximetry Oxygen Delivery Method Sepsis Recent Fever Within 48 Hours Sepsis New/Unexplained Change in Mental Status Sepsis Action Taken by Nursing 01/19/21 00:16 01/19/21 00:18 Temperature Temperature Source Pulse Rate 85 Pulse Rate from SpO2 Sensor 86 86 Respiratory Rate 22 Respiratory Effort / Characteristics Respiratory Depth Blood Pressure 162/88 H Blood Pressure [Right Arm] Blood Pressure Mean 112 Blood Pressure Mean [Right Arm] Blood Pressure Position Blood Pressure Position [Right Arm] Pulse Oximetry 96 95 Oxygen Delivery Method Sepsis Recent Fever Within 48 Hours Sepsis New/Unexplained Change in Mental Status Sepsis Action Taken by Nursing Laboratory Data Result diagrams: 01/18/21 22:30 01/18/21 22:30 Lab Results 01/18/21 01/18/21 01/18/21 Range/Units 22:30 22:30 23:08 WBC 6.70 (4.8-10.8) K/uL RBC 4.36 (4.2-5.4) M/uL Hgb 12.0 (12.0-16.0) g/dL Hct 36.4 L (37-47) % MCV 83.5 (80-100) fL MCH 27.5 (25-34) pg MCHC 33.0 (32-36) g/dL RDW Std Deviation 43.2 (36.4-46.3) fL RDW Coeff of Sam 14.3 (11.5-14.5) % Plt Count 109 L (130-400) K/uL MPV 8.0 (7.4-10.4) fL Immature Gran % (Auto) 0.3 % Neut % (Auto) 73.0 % Lymph % (Auto) 19.9 % [facility] % (Auto) 5.1 % Eos % (Auto) 1.6 % Baso % (Auto) 0.1 % Neut # (Auto) 4.89 (1.4-6.5) K/uL Lymph # (Auto) 1.33 (1.2-3.4) K/uL [facility] # (Auto) 0.34 (0.11-0.59) K/uL Eos # (Auto) 0.11 (0-0.5) K/uL Baso # (Auto) 0.01 (0-0.2) K/uL Immature Gran # (Auto) 0.02 (0.00-0.02) K/uL PT 10.1 (9.0-12.0) Seconds INR 1.0 (0.9-1.1) Sodium 139 (136-145) mmol/L Potassium 3.7 (3.5-5.1) mmol/L Chloride 104 (98-107) mmol/L Carbon Dioxide 29 (21-32) mmol/L Anion Gap 6.0 (3-11) BUN 19 H (7-18) mg/dl Creatinine 0.96 (0.6-1.2) mg/dl Est Cr Clr Drug Dosing 43.1 ml/min Est GFR ( Amer) 63.4 ml/min Est GFR (Non-Af Amer) 54.7 ml/min BUN/Creatinine Ratio 19.7 (10-20) Glucose 107 H (70-99) mg/dl Calcium 8.9 (8.5-10.1) mg/dl Magnesium 2.0 (1.8-2.4) mg/dl Total Bilirubin 0.7 (0.2-1) mg/dl AST 8 L (15-37) U/L ALT 16 (12-78) U/L Alkaline Phosphatase 66 (45-117) U/L Troponin I < 0.015 (0-0.045) ng/ml Total Protein 6.6 (6.4-8.2) gm/dl Albumin 3.2 L (3.4-5.0) gm/dl Globulin 3.4 (2.5-4.0) gm/dl Albumin/Globulin Ratio 0.9 (0.9-2) Lipase 104 (73-393) U/L Administered Medications Discontinued Medications Fentanyl Citrate (Fentanyl Citrate 100 Mcg/2 Ml Vial) 50 mcg IV NOW STA Stop: 01/18/21 22:05 Last Admin: 01/18/21 23:24 Dose: Not Given Documented by: [id number] Gabapentin (Gabapentin 300 Mg Cap) 300 mg PO ONCE ONE Stop: 01/19/21 00:32 Last Admin: 01/19/21 00:44 Dose: 300 mg Documented by: [id number] Discharge Plan Visit Data Chief Complaint: Illness Stated Complaint: RIGHT LEG RED AND SWOLLEN ED Provider: Victor Manuel Devries Discharge Problem: Pain and swelling of right lower extremity, Petechial rash, Burn erythema of right lower extremity Patient Disposition: Being Evaluated by Hospitalist Forms Stand Alone Forms: [facility] Prescriptions Prescriptions: No Action aspirin [Aspirin Low Dose] 81 mg Tablet,Delayed Release (Dr/Ec) 81 mg PO DAILY RF: 0 atorvastatin 20 mg Tablet 20 mg PO PM RF: 0 lisinopril 10 mg Tablet 10 mg PO DAILY RF: 0 metformin 500 mg Tablet 500 mg PO QAM RF: 0 buspirone 10 mg tablet 10 mg PO BID PRN (Reason: Anxiety) RF: 0 Referrals Referrals: Carlos Manuel Valiente MD [Primary Care Provider] - Discharge Problem: Burn erythema of right lower extremity Qualifiers: Encounter type: initial encounter Qualified Code(s): T24.101A - Burn of first degree of unspecified site of right lower limb, except ankle and foot, initial encounter
[2021-01-19] MEDS ORDERED: GABAPENTIN 300 MG CAP PO ONE (00:31)
[2021-01-19] MEDS ORDERED: lisinopril 10 MG TAB PO STA (00:47)
[2021-01-19] MEDS ORDERED: diphenhydrAMINE 50 MG/ML VIAL IV STA (01:10)
--- NOTE | 2021-01-19 01:18 | History & Physical Report ---
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 RE RLE rash possible vasculitis, hx Augmentin course check UA basal insulin, ISS BG goal 1 10-1 40, carb count coverage PT OT eval given recurrent admission DVT prophylaxis. SCDs Re: Thrombocytopenia Full code Patient requests for her daughter to be updated of plan of care. Ms. Heather Bermudez, contact #[phone]. Text document was generated using [employer] voice recognition software. It may contain grammatical or spelling errors. Kindly contact undersigned for clarification of any documentation item in question. History of Present Illness Chief Complaint: Right leg pain and swelling, abdominal pain Primary Care Provider: Carlos Manuel Valiente MD History obtained from patient and records. Medical history significant for HTN, hyperlipidemia, DM 2 on oral meds. Recent confinement January 12-2020 for colitis. Patient discharged on Augmentin course. Outpatient endoscopy recommended by GI in 4 to 6 weeks time. Yesterday patient noted transient achy hypogastric pain without bleeding. Patient later noted painful, pruritic right lower leg rash and swelling without chest pain, S OB. No fever, no chills. Patient brought to the ER for evaluation. 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 Allergies Allergy/AdvReac Type Severity Reaction Status Date / Time amoxicillin [From Augmentin] Allergy Intermediate poss Verified 01/19/21 01:13 vascultic rash clavulanic acid Allergy Intermediate poss Verified 01/19/21 01:13 [From Augmentin] vascultic rash Home Medications Medication Instructions Recorded Confirmed Type aspirin [Aspirin Low Dose] 81 mg PO DAILY 09/01/18 01/18/21 History atorvastatin 20 mg PO PM 09/01/18 01/18/21 History lisinopril 10 mg PO DAILY 09/01/18 01/18/21 History metformin 500 mg PO QAM 09/01/18 01/18/21 History buspirone 10 mg PO BID PRN 01/12/21 01/18/21 History Past Med/Surg History Medical History CKD (chronic kidney disease), stage III DM type 2 (diabetes mellitus, type 2) Dyslipidemia HTN (hypertension) Obesity (BMI 30-39.9) Osteoarthritis Osteoporosis Vitamin D deficiency Surgical History S/P cataract extraction S/P hysterectomy Family History Other Diabetes Social History Smoking Status: Never smoker Second Hand Exposure: No; Do You Dip or Chew Tobacco: No; Tobacco Cessation Education Requested by Patient: No Hx Alcohol Use: No Hx Substance Use: No Preferred Language: Italian Communication Ability: Effective Computer Systems Design Analyst Required: No Beliefs That Will Affect Care: None marital status: / Current Living Situation: Alone 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 How many Children do You have: 4 Other Information That Helps Us Care for You: No Feels Safe at Home: Yes Safety Concerns: Feels Safe At This Time Assistive Devices: Denture - Upper, Denture - Lower and Glasses Review of Systems Review of Systems: As per HPI, all 10 systems reviewed, all other ROS negative Physical Exam Physical Exam: GENERAL: Slightly uncomfortable, pleasant, looks younger for stated age, obese, no respiratory distress SKIN: Normal color, warm HEENT: [place] palpebral conjunctivae, no ptosis, dry buccal mucosa NECK : Supple, short neck, no tenderness CHEST : CTA, no tenderness HEART : RRR, no obvious murmurs ABDOMEN: Some distention, nontender EXTREMITIES : Petechial rash RLE with some tenderness and swelling, no other conspicuous deformities noted NEUROLOGIC : Coherent, no facial asymmetry, no other gross focality Results & Data Results & Data ([facility]) Vital Signs (Past 12 Hours) Vital Signs Temp Pulse Resp BP BP Pulse Ox 01/19/21 01:00 90 16 01/19/21 00:45 93 H 15 167/81 H 95 01/19/21 00:40 75 19 96 01/19/21 00:35 95 H 15 150/69 H 96 01/19/21 00:30 86 14 159/76 H 97 01/19/21 00:20 90 21 95 01/19/21 00:18 85 22 162/88 H 95 01/19/21 00:16 96 01/18/21 23:00 83 22 149/63 H 01/18/21 22:45 83 16 149/70 H 01/18/21 22:40 83 20 01/18/21 22:37 85 17 01/18/21 21:35 19 156/67 H 100 01/18/21 20:47 36.6 C 98 H 18 166/89 H 97 Laboratory Results Laboratory Results WBC 6.70 K/uL (4.8-10.8) 01/18/21 22:30 RBC 4.36 M/uL (4.2-5.4) 01/18/21 22:30 Hgb 12.0 g/dL (12.0-16.0) 01/18/21 22:30 Hct 36.4 % (37-47) L 01/18/21 22:30 MCV 83.5 fL (80-100) 01/18/21 22:30 MCH 27.5 pg (25-34) 01/18/21 22:30 MCHC 33.0 g/dL (32-36) 01/18/21 22:30 RDW Std Deviation 43.2 fL (36.4-46.3) 01/18/21 22:30 RDW Coeff of Sam 14.3 % (11.5-14.5) 01/18/21 22:30 Plt Count 109 K/uL (130-400) L 01/18/21 22:30 MPV 8.0 fL (7.4-10.4) 01/18/21 22:30 Immature Gran % (Auto) 0.3 % 01/18/21 22:30 Neut % (Auto) 73.0 % 01/18/21 22:30 Lymph % (Auto) 19.9 % 01/18/21 22:30 [place] % (Auto) 5.1 % 01/18/21 22:30 Eos % (Auto) 1.6 % 01/18/21 22:30 Baso % (Auto) 0.1 % 01/18/21 22:30 Neut # (Auto) 4.89 K/uL (1.4-6.5) 01/18/21 22:30 Lymph # (Auto) 1.33 K/uL (1.2-3.4) 01/18/21 22:30 [place] # (Auto) 0.34 K/uL (0.11-0.59) 01/18/21 22:30 Eos # (Auto) 0.11 K/uL (0-0.5) 01/18/21 22:30 Baso # (Auto) 0.01 K/uL (0-0.2) 01/18/21 22:30 Immature Gran # (Auto) 0.02 K/uL (0.00-0.02) 01/18/21 22:30 PT 10.1 Seconds (9.0-12.0) 01/18/21 23:08 INR 1.0 (0.9-1.1) 01/18/21 23:08 Sodium 139 mmol/L (136-145) 01/18/21 22:30 Potassium 3.7 mmol/L (3.5-5.1) 01/18/21 22:30 Chloride 104 mmol/L (98-107) 01/18/21 22:30 Carbon Dioxide 29 mmol/L (21-32) 01/18/21 22:30 Anion Gap 6.0 (3-11) 01/18/21 22:30 BUN 19 mg/dl (7-18) H 01/18/21 22:30 Creatinine 0.96 mg/dl (0.6-1.2) 01/18/21 22:30 Est Cr Clr Drug Dosing 43.1 ml/min 01/18/21 22:30 Est GFR ( Amer) 63.4 ml/min 01/18/21 22:30 Est GFR (Non-Af Amer) 54.7 ml/min 01/18/21 22:30 BUN/Creatinine Ratio 19.7 (10-20) 01/18/21 22:30 Glucose 107 mg/dl (70-99) H 01/18/21 22:30 Calcium 8.9 mg/dl (8.5-10.1) 01/18/21 22: Magnesium 2.0 mg/dl (1.8-2.4) 01/18/21: Total Bilirubin 0.7 mg/dl (0.2-1) 01/18/21 22:30 AST 8 U/L (15-37) L 01/18/21: ALT 16 U/L (12-78) 01/18/21: Alkaline Phosphatase 66 U/L (45-117) 01/18/21 22: Troponin I < 0.015 ng/ml (0-0.045) 01/18/21: Total Protein 6.6 gm/dl (6.4-8.2) 01/18/21: Albumin 3.2 gm/dl (3.4-5.0) L 01/18/21: Globulin 3.4 gm/dl (2.5-4.0) 01/18/21: Albumin/Globulin Ratio 0.9 (0.9-2) 01/18/21: Lipase 104 U/L (73-393) 01/18/21 22:30 COVID-19 Eval Order Covid19 at [facility] 01/19/21 00:[address] abdomen pelvis initial read: 1.8 cm smooth oval gallstone within a nondilated gallbladder. No pericholecystic inflammation or biliary duct dilation is seen. This is similar to previous. Mild fatty infiltration of the liver. Liver is mildly enlarged measuring 19.2 cm. No focal liver lesion is seen. The pancreas, spleen, adrenal glands, and kidneys are unremarkable. Bowel loops are nondilated no acute inflammatory changes are seen involving the bowel. Mild degenerative changes are seen in the lower thoracic and lumbar spine. No acute fracture or subluxation is seen. No rib fractures are identified Chest x-ray as per my interpretation: Elevated right hemidiaphragm Ultrasound venous RLE initial read: Negative for DVT. Code Status & VTE Plan VTE Prophylaxis Plan VTE Prophylaxis will be ordered: Yes
[2021-01-19] MEDS ORDERED: NSS + 20MEQ KCL 20 MEQ/1,000 ML BAG IV ONE (01:19)
[2021-01-19] MEDS ORDERED: diphenhydrAMINE 50 MG/ML VIAL ONE (01:19)
[2021-01-19 01:50] LABS: Lyme Ab IgG w/WB Rflx Negative (Negative); Lyme Ab IgM w/WB Rflx Negative (Negative)
[2021-01-19 01:58] LABS: Creatine Kinase 55 U/L (26-192)
[2021-01-19] MEDS ORDERED: predniSONE 20 MG TAB PO STA (02:39)
[2021-01-19] MEDS ORDERED: OPTIRAY 320 100ml IV ONE (02:52)
[2021-01-19] MEDS ORDERED: PROMETHAZINE HCL 12.5 MG in SODIUM CHLORIDE 0.9% 50 ML IV PRN (03:07)
[2021-01-19] MEDS ORDERED: traMADol HCL 50 MG TABLET PO PRN (03:07)
[2021-01-19] MEDS ORDERED: GLUCAGON FOR INJ 1 MG VIAL SQ PRN (03:07)
[2021-01-19] MEDS ORDERED: busPIRone 5 MG TAB PO PRN (03:07)
[2021-01-19] MEDS ORDERED: GLUCOSE 40% GEL 15 GM TUBE PO PRN (03:07)
[2021-01-19] MEDS ORDERED: ACETAMINOPHEN 325 MG TAB PO PRN (03:07)
[2021-01-19] MEDS ORDERED: CARBOHYDRATES FOR HYPOGLYCEMIA PO PRN (03:07)
[2021-01-19] MEDS ORDERED: MoRPHine SULFATE 4 MG/ML 1 ML CARP\\VIAL IV PRN (03:07)
[2021-01-19] MEDS ORDERED: GLUCOSE 10 TABS/TUBE PO PRN (03:07)
[2021-01-19] MEDS ORDERED: DEXTROSE 50% 50 ML SYRINGE IV PRN (03:07)
[2021-01-19] MEDS: INSULIN ASPART 100 UNITS/ML 3 ML PEN SC SCH ×5 (04:29→21:12)
[2021-01-19] MEDS ORDERED: INSULIN GLARGINE SOLOSTAR 100 UNITS/ML 3 ML PEN SC STA (05:35)
[2021-01-19 06:05] LABS: Basophils # (auto) 0.01 K/uL (0-0.2); Basophils % (auto) 0.2 %; Eosinophils # (auto) 0.08 K/uL (0-0.5); Eosinophils % (auto) 1.4 %; Hematocrit (blood only) 34.2 % (37-47); Hemoglobin 11.1 g/dL (12.0-16.0); Immature Granulocytes # (auto) 0.02 K/uL (0.00-0.02); Immature Granulocytes % (auto) 0.4 %; Lymphocytes # (auto) 1.44 K/uL (1.2-3.4); Lymphocytes % (auto) 25.8 %; Mean Corpuscular Hemoglobin 27.3 pg (25-34); Mean Corpuscular Hgb Conc 32.5 g/dL (32-36); Mean Corpuscular Volume 84.2 fL (80-100); Monocytes # (auto) 0.36 K/uL (0.11-0.59); Monocytes % (auto) 6.5 %; Neutrophils # (auto) 3.67 K/uL (1.4-6.5); Neutrophils % (auto) 65.7 %; Platelet Count 111 K/uL (130-400); RDW Coefficient of Variation 14.3 % (11.5-14.5); RDW Standard Deviation 44.1 fL (36.4-46.3); Red Blood Count 4.06 M/uL (4.2-5.4); White Blood Count 5.58 K/uL (4.8-10.8)
[2021-01-19 06:28] LABS: Calcium 8.6 mg/dl (8.5-10.1); Creatinine Clr Calc Pharmacy 50.4 ml/min; Est GFR (African American) 76.7 ml/min; Est GFR (Non-African American) 66.2 ml/min; Potassium 3.6 mmol/L (3.5-5.1)
--- NOTE | 2021-01-19 06:56 | Ultrasound Report ---
RIGHT LOWER EXTREMITY VENOUS DOPPLER HISTORY: Right leg swelling, redness COMPARISON STUDY: None. FINDINGS: There is normal compressibility, flow, and augmentation within the right lower extremity de ep venous system. IMPRESSION: No DVT within the right lower extremity ACT 112: Negative or not required by law. Electronically signed by: Clifford Escobar M.D. 01/19/2021 6:54 AM
[2021-01-19] MEDS ORDERED: traMADol HCL 50 MG TABLET PO STA (07:23)
--- NOTE | 2021-01-19 07:55 | CT Scan Report ---
ABDOMEN AND PELVIS CT WITH IV CONTRAST CT DOSE: 1051.25 mGycm HISTORY: Generalized abdominal pain. TECHNIQUE: Multiaxial CT images of the abdomen and pelvis were performed following the use of intrave nous contrast. A dose lowering technique was utilized adhering to the principles of ALARA. COMPARISON STUDY: Abdomen and pelvis CT 01/12/2021. FINDINGS: The lung bases are clear. No pneumoperitoneum. No pneumatosis. No fractures within the visu alized osseous structures. Cholelithiasis. No gallbladder wall thickening. The liver, spleen, adrenal glands, and pancreas are unremarkable. No hydronephrosis. No renal or ureteral stones. No retroperit becker lymphadenopathy. The bladder is unremarkable. Prior hysterectomy. A few colonic diverticula. No evidence for acute diverticulitis. No bowel wall thickening or obstruction. Normal appendix. IMPRESSION: 1. No bowel wall thickening or obstruction. 2. Cholelithiasis, unchanged. 3. Normal appendix. ACT 112: Negative or not required by law. Electronically signed by: Clifford Escobar M.D. 01/19/2021 7:54 AM
--- NOTE | 2021-01-19 08:06 | XRay Report ---
XR chest 1V portable HISTORY: leg swelling COMPARISON: Chest 09/01/2018. FINDINGS: A few bibasilar linear densities suggesting subsegmental atelectasis. Otherwise, the lungs are clear. No pleural effusions. No pneumothorax. The heart remains normal in size. No evidence for p ulmonary edema. IMPRESSION: No significant change compared to the prior study. No acute process. ACT 112: Negative or not required by law. Electronically signed by: Clifford Escobar M.D. 01/19/2021 8:04 AM
[2021-01-19 08:29] LABS: Appearance Urine Clear (Clear); Bilirubin Urine Negative (Negative); Blood Urine Negative (Negative); Color Urine Yellow; Glucose Urine UA Negative (Negative); Ketones Urine Negative (Negative); Leukocyte Esterase Urine Negative (Negative); Nitrite Urine Negative (Negative); Protein Urine Negative (Negative); Specific Gravity Urine 1.019 (1.000-1.030); Urobilinogen Urine Negative (Negative)
--- NOTE | 2021-01-19 13:22 | Electrocardiogram Report ---
Test Reason : Blood Pressure : / mmHG Vent. Rate : 074 BPM Atrial Rate : 074 BPM P-R Int : 174 ms QRS Dur : 086 ms QT Int : 396 ms P-R-T Axes : 062 002 040 degrees QTc Int : 439 ms Normal sinus rhythm with sinus arrhythmia Normal ECG When compared with ECG of 01-SEP-2018 22:08, Premature ventricular complexes are no longer Present Confirmed by Michael Ferrari ([id number]) on 01/19/2021 1:22:50 PM Referred By: REFERRED SELF Confirmed By:Michael Ferrari
--- NOTE | 2021-01-19 16:57 | Communication Note ---
Date of Service: January 19, 2021 Pt was see and examined. She is complaint of RLE tenderness and redness. Received prednisone 40mg on admission. Doppler of RLE showed No DVT within the right lower extremity. rash etiology might be related to recent abx, but doubt because she completed the course of Augmentin last night and rash started last night. drug induced rash mostly diffuse but her rash is localized more in her RLE around her calf. Will continue steroid trial. Consider Dermatology consult if rash worsening. Complaint also of abdominal pain. CT abd/pelvis showed no bowel wall thickening or obstruction. Increase urinary frequency might be due to IVF. UA negative. Continue monitor closely. MD Maria Antonia
[2021-01-19] MEDS ORDERED: predniSONE 20 MG TAB PO SCH (21:00)
[2021-01-19] MEDS ORDERED: ATORVASTATIN 20 MG TAB PO SCH (21:00)
[2021-01-20] MEDS ORDERED: MELATONIN 3 MG TAB PO PRN (00:13)
[2021-01-20] MEDS ORDERED: INSULIN GLARGINE SOLOSTAR 100 UNITS/ML 3 ML PEN SC SCH (09:00)
[2021-01-20] MEDS ORDERED: lisinopril 10 MG TAB PO SCH (09:00)
[2021-01-20] MEDS: INSULIN ASPART 100 UNITS/ML 3 ML PEN SC SCH ×2 (09:10→12:33)
--- NOTE | 2021-01-20 14:36 | Hospitalist Progress Note ---
Date of Service January 20, 2021 Assessment & Plan (1) Pain and swelling of right lower extremity: Patient presents with petechial localized rash on right lower extremity, after completion of p.o. Augmentin. Extremity Doppler shows negative for DVT Does not appear to be typical drug rash as it is very localized. Responded to low-dose prednisone. There is also localized warmth and tenderness on that area, suggestive of cellulitis Symptomatically patient is much improved no fever or chills, Able to be discharged home We will discharge with p.o. doxycycline for 7 days for possible cellulitis Would recommend follow-up with rheumatology outpatient for an assessment meant of underlying vasculitis Hypertensive urgency: Brief episode, blood pressure back to baseline now Continue outpatient meds Possible secondary to anxiety during admission Stable to be discharged home today Plan of care updated to patient's family over phone Admission and Anticipated Discharge Date Admission Date: January 19, 2021 Subjective Follow-up visit for right leg rash/cellulitis/abdominal pain. Patient feels fine today no complaint of abdominal pain, blood pressures been stable, Right lower leg petechial rash has improved, has minimum tenderness no fever or chills Stable to be discharged home today Review of Systems Review of Systems: All systems reviewed & are unremarkable except as noted in Subjective Physical Exam Constitutional: WD/WN, vitals as above Eyes: PERRL, conjunctivae normal, anicteric sclerae ENMT: external ear and nose normal, oropharynx normal Neck: trachea midline, no thyromegaly Respiratory: normal respiratory effort, lungs clear to auscultation Cardiovascular: RRR, no murmur, no edema Gastrointestinal (Abdomen): normal bowel sounds, soft, nontender, no hepatosplenomegaly Musculoskeletal: no cyanosis or clubbing, extremities motor strength 5/5 Skin: + rash (Acute rash on right lower leg, improved,Mild tenderness and erythema.) Neurologic: PERRL, EOMI, accommodation nl, no face palsy, no dysarthria Psychiatric: A+Ox3, euthymic affect Results & Data Results & Data ([facility]) Vital Signs (Past 12 Hours) Vital Signs Temp Pulse Pulse Pulse Resp BP BP 01/20/21 11:29 36.6 C 70 18 131/62 01/20/21 11:11 01/20/21 08:07 36.9 C 53 L 18 128/74 01/20/21 07:15 51 L 01/20/21 04:38 36.6 C 61 18 136/56 L Pulse Ox Pulse Ox 01/20/21 11:29 95 01/20/21 11:11 94 01/20/21 08:07 94 01/20/21 07:15 01/20/21 04:38 94
--- NOTE | 2021-01-20 14:42 | Discharge Summary ---
Date of Service January 20, 2021 Admission HPI Per Admitting Provider History obtained from patient and records. Medical history significant for HTN, hyperlipidemia, DM 2 on oral meds. Recent confinement January 12-2020 for colitis. Patient discharged on Augmentin course. Outpatient endoscopy recommended by GI in 4 to 6 weeks time. Yesterday patient noted transient achy hypogastric pain without bleeding. Patient later noted painful, pruritic right lower leg rash and swelling without chest pain, S OB. No fever, no chills. Patient brought to the ER for evaluation. 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 Rash on right lower leg High blood pressure Discharge Exam Constitutional WD/WN, vitals as above Eyes PERRL, conjunctivae normal, anicteric sclerae ENMT external ear and nose normal, oropharynx normal Neck trachea midline, no thyromegaly Respiratory normal respiratory effort, lungs clear to auscultation Cardiovascular RRR, no murmur, no edema Gastrointestinal (Abdomen) normal bowel sounds, soft, nontender, no hepatosplenomegaly Musculoskeletal no cyanosis or clubbing, extremities motor strength 5/5 Skin + rash (Acute rash on right lower leg, improved,Mild tenderness and erythema.) Neurologic PERRL, EOMI, accommodation nl, no face palsy, no dysarthria Psychiatric A+Ox3, euthymic affect Discharge Data Allergies Allergy/AdvReac Type Severity Reaction Status Date / Time amoxicillin [From Augmentin] Allergy Intermediate poss Verified 01/19/21 01:13 vascultic rash clavulanic acid Allergy Intermediate poss Verified 01/19/21 01:13 [From Augmentin] vascultic rash Consultations 01/19/21 00:43 ED Decision to Admit Stat Ordered Studies 01/18/21 21:56 US venous doppler LE RT Urgent 01/19/21 01:10 CT abd pelvis IV con only Urgent Hospital Course (1) Pain and swelling of right lower extremity: Patient presents with petechial localized rash on right lower extremity, after completion of p.o. Augmentin. Extremity Doppler shows negative for DVT Does not appear to be typical drug rash as it is very localized. Responded to low-dose prednisone. There is also localized warmth and tenderness on that area, suggestive of cellulitis Symptomatically patient is much improved no fever or chills, Able to be discharged home We will discharge with p.o. doxycycline for 7 days for possible cellulitis Would recommend follow-up with rheumatology outpatient for an assessment meant of underlying vasculitis Hypertensive urgency: Brief episode, blood pressure back to baseline now Continue outpatient meds Possible secondary to anxiety during admission Stable to be discharged home today Plan of care updated to patient's family over phone Total Time Total Time Spent Total Time Spent (In Minutes): 35 minutes Total Time Includes: Examination of the Patient, Discharge Planning and Medication Reconciliation Discharge Plan Discharge Items Patient Disposition: Home - Self-Care Reason For Visit: HTN URG Discharge Diagnosis: Rash on right lower leg High blood pressure Activity: Resume your previous activity Non-emergency contact: Primary Care Provider Call non-emergency contact if: you have any medication questions Follow-up/Referrals: Carlos Manuel Valiente MD [Primary Care Provider] - (Date & Time 01/26/2021 3:00 PM Provider Carlos Manuel Valiente MD Department Family Medicine [facility] ) Diet: Carb Consistent or DM2 Addtl Attending Provider Instructions: Please take all medications as instructed on discharge list below. It is recommended that you follow-up with your primary care physician within 1-2 weeks of hospital discharge to ensure you are still doing well. Please call if you have any questions or problems. You can reach a [facility] hospitalist on duty at [facility] 24 hours a day by calling [phone] Addtl Restaurant Host Provider Instructions: You will benefit with referral to rheumatology if right leg rash does not resolve after completion of antibiotic Pending Studies at Discharge: No Stand-Alone Forms: My [facility] Sendmybag, Smoking Cessation Medications and DC Order Prescriptions: New doxycycline hyclate 100 mg capsule 100 mg PO BID 7 Days Qty: 14 RF: 0 Continued aspirin [Aspirin Low Dose] 81 mg Tablet,Delayed Release (Dr/Ec) 81 mg PO DAILY RF: 0 atorvastatin 20 mg Tablet 20 mg PO PM RF: 0 lisinopril 10 mg Tablet 10 mg PO DAILY RF: 0 metformin 500 mg Tablet 500 mg PO QAM RF: 0 buspirone 10 mg tablet 10 mg PO BID PRN (Reason: Anxiety) RF: 0 Discharge Orders: Discharge Order (Routine); Ordered 01/20/21 Ordered By: Rajni Pittman Admission Data Admit Date/Time: 01/19/21 01:14 Attending Provider: Rajni Pittman Admit Provider: Matthias Bradley Primary Care Provider: Carlos Manuel Valiente Other Providers: Matthias Bradley ; Garett Em Other Interventions: Discharge Summary Assessment (RN) Last Done: 01/20/21 14:48
== END 2021-01-20 15:24 | disposition home or self-care (01) ==
LOC: ED 20:43 → 2N 20:43 → SUATTDRO 01-19 01:14 → 2N 01-19 02:23

== ENCOUNTER 2023-07-13 07:47 | Inpatient (IN) ==
[2023-07-13] MEDS ORDERED: SODIUM CHLORIDE 0.9% 500 ML IV STA (08:15)
[2023-07-13] MEDS ORDERED: methylPREDNISolone 125 MG/2 ML VIAL IV STA (08:15)
[2023-07-13] MEDS ORDERED: ALBUT/IPRATROP 3MG/0.5MG NEB 3 ML VIAL INH STA (08:15)
--- NOTE | 2023-07-13 08:19 | Emergency Department Note ---
Impression & Plan Sepsis, Acute hypokalemia, COVID ED Provider Note Diagnosis: Sepsis, pneumonia, hypokalemia Disposition: Admission CHIEF COMPLAINT: Shortness of breath HPI: Patient is a 87-year-old female presenting COVID-positive for 9 days time with increasing shortness of breath. Patient's daughter is at bedside and provides most of the history of present illness. Patient has been progressively having worsening shortness of breath and productive cough. Patient has audible wheezing. Patient does not have a history of asthma or COPD at baseline. Patient has been having constipation but does not complain of any abdominal pain currently. Patient was given breathing treatment by EMS in route with improvement in symptoms reportedly. Patient's oxygen saturation is 93% on room air currently. Patient denies any active chest pain at this time. PAST MEDICAL HISTORY: See Below PAST SURGICAL HISTORY: See Below SOCIAL HISTORY: See Below HOME MEDICATIONS: See Below ALLERGIES: See Below VITALS: See Below PHYSICAL EXAMINATION: GENERAL: Well appearing, well nourished, NAD, non-toxic. EYE EXAM: Normal conjunctiva. OROPHARYNX: Moist mucus membranes. Grossly normal dentition. NECK: Supple, LUNGS: Wheezing bilaterally HEART: NSR ABDOMEN: Abdomen soft, non-tender, normo-active bowel sounds, no masses, no rebound or guarding BACK: No CVA TTP. SKIN: No rashes and no bruising. UPPER EXTREMITIES: Upper extremities are grossly normal LOWER EXTREMITIES: Grossly normal, no edema. NEURO EXAM: A&O x3,, normal speech, moves all 4 extremities PSYCH: Cooperative MEDICAL DECISION MAKING: Reviewed external documents: History obtained from: Patient, daughter ER Course: Patient is a 87-year-old female presenting with complaint of being COVID- positive for 9 days time and having acute shortness of breath and audible wheezing for the past 2 days. Patient does not have been experienced any fevers. Patient found to have a lactate of 4. Patient started on broad- spectrum antibiotics of cefepime and vancomycin. Patient lung sounds have wheezing bilaterally. Patient clinically has pneumonia on auscultation. Patient had a D-dimer performed which was elevated at above [address] of the chest was performed which shows potential pneumonia but no pulmonary embolism present. Patient was hemodynamically stable throughout emergency room course. Patient's potassium repleted. Patient found to have sepsis with an elevated lactate. Patient is on broad- spectrum antibiotics. Patient's ideal body weight based of being 5 feet tall is 49 kg. Patient's 30 cc/kg amount of fluid needed would be 1500 cc which was ordered Patient's case mallorie with hospitalist service. Labs (independently interpreted) are significant for: Lactate of 4, potassium of 2.6, second lactate 2.5. Imaging results (independently interpreted): Chest x-ray clear no pneumonia present EKG interpretation (independently interpreted): Medications given: Cefepime, vancomycin, DuoNeb, potassium repletion Consultants: Hospitalist service, discussed patient COVID-positive presenting with elevated lactate level hypokalemia and need for further admission to the hospital. Triage Nursing notes reviewed and agree them. Vital Signs: reviewed and remarkable for: no significant abnormalities Past Med/Surg History Medical History Left lower quadrant abdominal pain Colitis Hematochezia Obesity (BMI 30-39.9) Dyslipidemia Osteoarthritis Vitamin D deficiency Osteoporosis CKD (chronic kidney disease), stage III DM type 2 (diabetes mellitus, type 2) HTN (hypertension) Surgical History S/P hysterectomy S/P cataract extraction Family History Other Diabetes Social History Smoking Status: Never smoker Second Hand Exposure: No; Do You Dip or Chew Tobacco: No; Hx Alcohol Use: No Hx Substance Use: No Preferred Language: Slovak Communication Ability: Effective Home Insurance Agent Required: No Beliefs That Will Affect Care: None marital status: / Current Living Situation: Alone 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 How many Children do You have: 4 Feels Safe at Home: Yes Assistive Devices: Glasses Allergies Allergies Allergy/AdvReac Type Severity Reaction Status Date / Time amoxicillin [From Augmentin] Allergy Intermediate poss Verified 07/13/23 12:21 vascultic rash clavulanic acid Allergy Intermediate poss Verified 07/13/23 12:21 [From Augmentin] vascultic rash Home Meds Home Medications Medication Instructions Recorded Confirmed aspirin 81 mg tablet,delayed 81 mg PO DAILY 09/01/18 07/13/23 release (Edwin Low Dose Aspirin) atorvastatin 20 mg tablet 20 mg PO PM 09/01/18 07/13/23 lisinopril 10 mg tablet 10 mg PO DAILY 09/01/18 07/13/23 benzonatate 100 mg capsule 100 mg PO TID PRN Cough 07/13/23 07/13/23 diclofenac sodium 50 mg 50 mg PO Q8 PRN Pain 07/13/23 07/13/23 tablet,delayed release pioglitazone 30 mg tablet 30 mg PO DAILY 07/13/23 07/13/23 Results & Data (ED) Vital Signs Vital Signs - 24 hr 07/13/23 08:04 07/13/23 08:11 07/13/23 08:11 Temperature 36.9 C Temperature Source Oral Pulse Rate 97 H Pulse Rate [Apical] 93 H Respiratory Rate 18 20 Blood Pressure 171/81 H Blood Pressure [Right Arm] 171/81 H Blood Pressure Mean 111 Blood Pressure Mean [Right Arm] 111 Pulse Oximetry 95 94 94 Oxygen Delivery Method Room Air Room Air Room Air Oxygen Flow Rate 0 Sepsis Recent Fever Within 48 Hours No Sepsis New/Unexplained Change in Mental Status No Sepsis Action Taken by Nursing No Action Required 07/13/23 08:27 07/13/23 12:00 07/13/23 12:00 Temperature Temperature Source Pulse Rate 88 Pulse Rate [Apical] 108 H Respiratory Rate 18 Blood Pressure Blood Pressure [Right Arm] 120/54 L Blood Pressure Mean Blood Pressure Mean [Right Arm] 76 Pulse Oximetry 98 92 Oxygen Delivery Method Room Air Room Air Oxygen Flow Rate Sepsis Recent Fever Within 48 Hours Sepsis New/Unexplained Change in Mental Status Sepsis Action Taken by Nursing Laboratory Data 07/13/23 07:55 07/13/23 09:56 Lab Results 07/13/23 07/13/23 07/13/23 Range/Units 07:55 09:42 09:56 WBC 4.07 L (4.8-10.8) K/ul RBC 4.19 L (4.20-5.40) M/uL Hgb 12.0 (12.0-16.0) g/dl Hct 37.1 (37.0-47.0) % MCV 88.5 (80.0-100.0) fL MCH 28.6 (25.0-34.0) pg MCHC 32.3 (32.0-36.0) g/dL RDW Std Deviation 48.4 H (36.4-46.3) fL RDW Coeff of Sam 14.9 H (11.5-14.5) % Plt Count 103 L (130-400) K/uL MPV 9.5 (9.4-12.4) fL Immature Gran % (Auto) 1.2 % Neut % (Auto) 56.6 % Lymph % (Auto) 35.4 % [place] % (Auto) 6.6 % Eos % (Auto) 0.0 % Baso % (Auto) 0.2 % Neut # (Auto) 2.30 (1.40-6.50) K/uL Lymph # (Auto) 1.44 (1.20-3.40) K/uL [place] # (Auto) 0.27 (0.11-0.59) K/uL Eos # (Auto) 0.00 (0.00-0.50) K/uL Baso # (Auto) 0.01 (0.00-0.20) K/uL Immature Gran # (Auto) 0.05 (0.01-0.20) K/uL D-Dimer 1190 H* (0-500) ug/L FEU Sodium Cancelled 139 Potassium Cancelled 2.6 L Chloride Cancelled 101 Carbon Dioxide Cancelled 25 Anion Gap Cancelled 13 H BUN Cancelled 15 Creatinine Cancelled 0.91 Est Cr Clr Drug Dosing Cancelled 46.6 Est GFR ( Amer) Cancelled 66.7 Est GFR (Non-Af Amer) Cancelled 57.5 BUN/Creatinine Ratio Cancelled 16.5 Glucose Cancelled 128 H Lactate 4.7 H* (0.4-2.0) mmol/L Calcium Cancelled 8.7 Phosphorus 2.7 (2.5-4.9) mg/dl Magnesium 1.5 L (1.7-2.4) mg/dl Total Bilirubin Cancelled 0.6 AST Cancelled 17 ALT Cancelled 12 Alkaline Phosphatase Cancelled 55 Troponin I High Sens Cancelled 10.3 B-Natriuretic Peptide 118 H (0-100) pg/ml Total Protein Cancelled 6.7 Albumin Cancelled 3.6 Globulin Cancelled 3.1 Albumin/Globulin Ratio Cancelled 1.2 Procalcitonin < 0.05 (0-0.5) ng/ml Urine Color Yellow Urine Appearance Clear (Clear) Urine pH 6.5 (4.5-7.5) Ur Specific [place] 1.010 (1.000-1.030) Urine Protein Negative (Negative) Urine Glucose (UA) Negative (Negative) Urine Ketones Negative (Negative) Urine Blood Negative (Negative) Urine Nitrite Negative (Negative) Urine Bilirubin Negative (Negative) Urine Urobilinogen Negative (Negative) Ur Leukocyte Esterase Negative (Negative) 07/13/23 Range/Units 12:16 WBC (4.8-10.8) K/ul RBC (4.20-5.40) M/uL Hgb (12.0-16.0) g/dl Hct (37.0-47.0) % MCV (80.0-100.0) fL MCH (25.0-34.0) pg MCHC (32.0-36.0) g/dL RDW Std Deviation (36.4-46.3) fL RDW Coeff of Sam (11.5-14.5) % Plt Count (130-400) K/uL MPV (9.4-12.4) fL Immature Gran % (Auto) % Neut % (Auto) % Lymph % (Auto) % [place] % (Auto) % Eos % (Auto) % Baso % (Auto) % Neut # (Auto) (1.40-6.50) K/uL Lymph # (Auto) (1.20-3.40) K/uL [place] # (Auto) (0.11-0.59) K/uL Eos # (Auto) (0.00-0.50) K/uL Baso # (Auto) (0.00-0.20) K/uL Immature Gran # (Auto) (0.01-0.20) K/uL D-Dimer (0-500) ug/L FEU Sodium Potassium Chloride Carbon Dioxide Anion Gap BUN Creatinine Est Cr Clr Drug Dosing Est GFR ( Amer) Est GFR (Non-Af Amer) BUN/Creatinine Ratio Glucose Lactate 2.5 H* (0.4-2.0) mmol/L Calcium Phosphorus (2.5-4.9) mg/dl Magnesium (1.7-2.4) mg/dl Total Bilirubin AST ALT Alkaline Phosphatase Troponin I High Sens B-Natriuretic Peptide (0-100) pg/ml Total Protein Albumin Globulin Albumin/Globulin Ratio Procalcitonin (0-0.5) ng/ml Urine Color Urine Appearance (Clear) Urine pH (4.5-7.5) Ur Specific [place] (1.000-1.030) Urine Protein (Negative) Urine Glucose (UA) (Negative) Urine Ketones (Negative) Urine Blood (Negative) Urine Nitrite (Negative) Urine Bilirubin (Negative) Urine Urobilinogen (Negative) Ur Leukocyte Esterase (Negative) Administered Medications Discontinued Medications Albuterol (Albut/Ipratrop 3mg/0.5mg Neb 3 Ml Vial) 12 ml INH ONE STA Stop: 07/13/23 08:16 Last Admin: 07/13/23 08:33 Dose: 12 ml Documented By: KT Sodium Chloride (Nss) 500 mls @ 999 mls/hr IV .Q31M STA Stop: 07/13/23 08:45 Last Infusion: 07/13/23 09:30 Dose: Infused Documented By: Admin: 07/13/23 08:33 Dose: 999 mls/hr Documented By: KT Vancomycin HCl 2,000 mg/ (Sodium Chloride) 540 mls @ 200 mls/hr IV NOW ONE Stop: 07/13/23 12:57 Last Infusion: 07/13/23 13:45 Dose: Infused Documented By: Admin: 07/13/23 10:43 Dose: 200 mls/hr Documented By: KT Cefepime HCl (Maxipime) 2,000 mg in 20 mls @ 5 mls/min IV NOW STA; Protocol Stop: 07/13/23 10:19 Last Admin: 07/13/23 10:43 Dose: 5 mls/min Documented By: KT Potassium Chloride (K Adam / Wtr) 10 meq in 100 mls @ 100 mls/hr IV Q1H DELICIA Stop: 07/13/23 12:44 Last Admin: 07/13/23 14:30 Dose: 100 mls/hr Documented By: Infusion: 07/13/23 14:14 Dose: Infused Documented By: Admin: 07/13/23 13:14 Dose: 100 mls/hr Documented By: CIERA Sodium Chloride (Nss) 1,000 mls @ 999 mls/hr IV .Q1H1M DELICIA Stop: 07/13/23 13:15 Last Infusion: 07/13/23 14:31 Dose: Infused Documented By: Admin: 07/13/23 13:14 Dose: 999 mls/hr Documented By: TBS Sodium Chloride (Nss) 1,000 mls @ 999 mls/hr IV .Q1H1M ONE Stop: 07/13/23 13:56 Last Admin: 07/13/23 13:44 Dose: Not Given Documented By: TBS Ioversol (Optiray 320 500ml) 110 ml IV ONCE ONE Stop: 07/13/23 11:29 Last Admin: 07/13/23 11:28 Dose: 110 ml Documented By: KSF Methylprednisolone (Methylprednisolone 125 Mg/2 Ml Vial) 125 mg IV NOW STA Stop: 07/13/23 08:16 Last Admin: 07/13/23 08:33 Dose: 125 mg Documented By: KT Potassium Chloride (Potassium Chloride Crtab 20 Meq Tabcr) 40 meq PO NOW STA Stop: 07/13/23 12:16 Last Admin: 07/13/23 15:13 Dose: Not Given Documented By: CIERA Imaging Data Radiologist's Impression: Chest X-Ray 07/13/23 08:15 XR chest 1V portable CLINICAL HISTORY: Dyspnea. COMPARISON STUDY: Chest radiograph July 10, 2023. FINDINGS: Lung volumes are normal. Lungs are clear. There is no pneumothorax or pleural effusion. Mild cardiomegaly is unchanged. Mediastinal contours are normal. There is no evidence for pulmonary edema. IMPRESSION: No acute cardiopulmonary findings. No change in appearance of the chest. ACT 112: Negative or not required by law. Electronically signed by: Julien Duran M.D. 07/13/2023 8:42 AM Chest CTA 07/13/23 09:40 CT angio chest PE protocol CLINICAL HISTORY: covid+, SOB, elevated d-dimer, r/o PE TECHNIQUE: Multidetector row helical CT of the chest was performed with angiographic protocol. Coronal and sagittal reformations were obtained. Coronal and sagittal MIPS were obtained from the axial data set and were submitted for review. Automated dose lowering techniques and/or adjustment according to patient size were utilized for this exam. CT DOSE: 796.81 mGy.cm Comparison: None available at the time of this dictation. FINDINGS: Lungs and pleura: Groundglass opacities are in the right upper lobe. 3 mm nodule left upper lobe (series 4 image 131) and 2 mm nodule in the lingula (image 46) are seen. Heart and pericardium: Heart size is normal. No pericardial effusion. Vessels: Mild atherosclerotic changes in the aorta and coronary arteries. Mediastinum and serafin: Unremarkable. Chest wall and lower neck: Unremarkable. Abdomen: Unremarkable. Bones: Degenerative changes in the thoracic spine. IMPRESSION: 1. Groundglass opacities in the right upper lobe are compatible with viral pneumonia. No evidence of pulmonary embolus. 2. Pulmonary nodules as above. According to Fleischner criteria, no follow-up is required in low risk patients, in high-risk patients, a 12 month follow-up CT can be optionally performed. ACT 112: Negative or not required by law. Electronically signed by: Aubrey Marquis M.D. 07/13/2023 11:41 AM Discharge Plan Visit Data Chief Complaint: Shortness of Breath/Dyspnea Stated Complaint: SOB ED Provider: Ron Morales Discharge Problem: Sepsis, Acute hypokalemia, COVID Discharge Instructions Interventions: ED Discharge Assessment Last Done: 07/13/23 14:56
[2023-07-13 08:38] LABS: Basophils # (auto) 0.01 K/uL (0.00-0.20); Basophils % (auto) 0.2 %; Hematocrit (blood only) 37.1 % (37.0-47.0); Immature Granulocytes # (auto) 0.05 K/uL (0.01-0.20); Immature Granulocytes % (auto) 1.2 %; Lymphocytes # (auto) 1.44 K/uL (1.20-3.40); Lymphocytes % (auto) 35.4 %; Mean Corpuscular Hemoglobin 28.6 pg (25.0-34.0); Mean Corpuscular Hgb Conc 32.3 g/dL (32.0-36.0); Mean Corpuscular Volume 88.5 fL (80.0-100.0); Mean Platelet Volume 9.5 fL (9.4-12.4); Monocytes # (auto) 0.27 K/uL (0.11-0.59); Monocytes % (auto) 6.6 %; Neutrophils % (auto) 56.6 %; Platelet Count 103 K/uL (130-400); RDW Coefficient of Variation 14.9 % (11.5-14.5); RDW Standard Deviation 48.4 fL (36.4-46.3); Red Blood Count 4.19 M/uL (4.20-5.40); White Blood Count 4.07 K/ul (4.8-10.8)
--- NOTE | 2023-07-13 08:43 | XRay Report ---
XR chest 1V portable CLINICAL HISTORY: Dyspnea. COMPARISON STUDY: Chest radiograph July 10, 2023. FINDINGS: Lung volumes are normal. Lungs are clear. There is no pneumothorax or pleural effusion. Mil d cardiomegaly is unchanged. Mediastinal contours are normal. There is no evidence for pulmonary karol a. IMPRESSION: No acute cardiopulmonary findings. No change in appearance of the chest. ACT 112: Negative or not required by law. Electronically signed by: Julien Duran M.D. 07/13/2023 8:42 AM
[2023-07-13 09:11] LABS: D Dimer 1190 ug/L FEU (0-500)
[2023-07-13 10:12] LABS: Appearance Urine Clear (Clear); Bilirubin Urine Negative (Negative); Blood Urine Negative (Negative); Color Urine Yellow; Glucose Urine UA Negative (Negative); Ketones Urine Negative (Negative); Leukocyte Esterase Urine Negative (Negative); Nitrite Urine Negative (Negative); Protein Urine Negative (Negative); Urobilinogen Urine Negative (Negative); pH Urine 6.5 (4.5-7.5)
[2023-07-13] MEDS ORDERED: VANCOMYCIN HCL 2,000 MG in SODIUM CHLORIDE 0.9% 500 ML IV ONE (10:16)
[2023-07-13] MEDS ORDERED: VANCOMYCIN CONSULT ACTIVE PRN (10:16)
[2023-07-13] MEDS ORDERED: CEFEPIME 2,000 MG/20 ML VIAL IV STA (10:16)
[2023-07-13 10:32] LABS: Albumin Globulin Ratio 1.2 (0.9-2); Albumin Level 3.6 gm/dl (3.4-5.0); BUN Creatinine Ratio 16.5 (10-20); Bilirubin,Total 0.6 mg/dl (0.2-1.0); Calcium 8.7 mg/dl (8.6-10.3); Creatinine Clr Calc Pharmacy 46.6 ml/min; Est GFR (African American) 66.7 ml/min; Est GFR (Non-African American) 57.5 ml/min; Globulin 3.1 gm/dl (2.5-4.0); Potassium 2.6 mmol/L (3.5-5.1); Total Protein 6.7 gm/dl (6.0-8.3)
[2023-07-13 10:38] LABS: Troponin I High Sensitivity 10.3 pg/ml (0-14)
[2023-07-13] MEDS ORDERED: OPTIRAY 320 500ml IV ONE (11:28)
--- NOTE | 2023-07-13 11:43 | CT Scan Report ---
CT angio chest PE protocol CLINICAL HISTORY: covid+, SOB, elevated d-dimer, r/o PE TECHNIQUE: Multidetector row helical CT of the chest was performed with angiographic protocol. Segundo l and sagittal reformations were obtained. Coronal and sagittal MIPS were obtained from the axial nathan a set and were submitted for review. Automated dose lowering techniques and/or adjustment according to patient size were utilized for this exam. CT DOSE: 796.81 mGy.cm Comparison: None available at the time of this dictation. FINDINGS: Lungs and pleura: Groundglass opacities are in the right upper lobe. 3 mm nodule left upper lobe (ser ies 4 image 131) and 2 mm nodule in the lingula (image 46) are seen. Heart and pericardium: Heart size is normal. No pericardial effusion. Vessels: Mild atherosclerotic changes in the aorta and coronary arteries. Mediastinum and serafin: Unremarkable. Chest wall and lower neck: Unremarkable. Abdomen: Unremarkable. Bones: Degenerative changes in the thoracic spine. IMPRESSION: 1. Groundglass opacities in the right upper lobe are compatible with viral pneumonia. No evidence of pulmonary embolus. 2. Pulmonary nodules as above. According to Fleischner criteria, no follow-up is required in low ris k patients, in high-risk patients, a 12 month follow-up CT can be optionally performed. ACT 112: Negative or not required by law. Electronically signed by: Aubrey Marquis M.D. 07/13/2023 11:41 AM
[2023-07-13] MEDS ORDERED: SODIUM CHLORIDE 0.9% 1,000 ML IV SCH (12:15)
[2023-07-13] MEDS ORDERED: POTASSIUM CHLORIDE CRTAB 20 MEQ TABCR PO STA (12:15)
[2023-07-13] MEDS ORDERED: SODIUM CHLORIDE 0.9% 1,000 ML IV ONE (12:56)
[2023-07-13] MEDS: POTASSIUM CHLORIDE / WTR 10 MEQ/100 ML PLCT IV SCH ×4 (13:14→17:23)
--- NOTE | 2023-07-13 13:23 | History & Physical Report ---
Date of Service July 13, 2023 Assessment & Plan (1) Pneumonia due to COVID-19 virus: (2) Generalized weakness: (3) DM type 2 (diabetes mellitus, type 2): Plan This is an 87-year-old female who has a significant past medical history of T2DM, HTN, HLD deficiency and osteoporosis who presents to ED for shortness of breath x2 days. Pneumonia due to COVID-19 Generalized weakness Admit to med telemetry --CTA: IMPRESSION:1. Groundglass opacities in the right upper lobe are compatible with viral pneumonia. No evidence of pulmonary embolus.2. Pulmonary nodules as above. According to Fleischner criteria, no follow-up is required in low risk patients, in high-risk patients, a 12 month follow-up CT can be optionally performed. She is currently on day 9 of symptoms and therefore does not meet criteria for remdesivir She did receive IV Solu-Medrol in ED; however currently clinically steroid not indicated as she is not hypoxic and not currently wheezing We will treat supportively for now with as needed nebulizer, flutter valve, antitussives PT/OT Empirically treat with IV Rocephin and oral doxycycline to cover for possible bacterial component of pneumonia Pt does not meet Sepsis criteria Hypokalemia 40meq oral kdur ordered in ED will give additional 10meq IV x 4 give additional 40meq oral at 1600 obtain mag, phos repeat bmp Lactic acidosis admitting lactic acid 4.7, repeat 2.5 after only 500ml of IVF give additional 1L of IVF in ED repeat lactic T2DM Well-controlled, last A1c 6.0 on 06/26/2023 Hold Actos Lantus/NovoLog per protocol HTN hold lisinopril for now until pt resuscitated from volume stand point and re eval resume as able, she did have dose on 07/13/23 HLD chronic, stable continue statin Pulmonary nodules noted on CT recommend repeat CT in 12 months PCP to arrange DVT ppx: SQ Lovenox q12h PCP: Rocco FULL CODE Dispo: med/tele, pt/ot, pt lives alone, may need rehab Pt was seen and examined in collaboration with Dr. Romero, please see addendum History of Present Illness Chief Complaint: Worsened SOB x 2 days. Primary Care Provider: Carlos Manuel Valiente MD This is an 87-year-old female who has a significant past medical history of T2DM, HTN, HLD deficiency and osteoporosis who presents to ED for shortness of breath x2 days. Of significance patient was seen in ED on 07/10/2023 secondary to URI symptoms and tested positive for COVID-19. She was discharged with Preston Pelaez and Marjorie. Initially she had been doing well; however, over the last 2 days she become increasingly shortness of breath with minimal activity, increasing productive cough. She is unsure of purulence, cough. She notes that at all last night due to pain with coughing. She also complained of being chilled and overall generally weak. Her daughter is at bedside who assist her with her medications. She states she had difficulty even getting out of bed this morning and therefore she called EMS. Overall appetite has been poor and she has not been eating or drinking well over the last 2 days. She also tried [id number] NyQuil without much relief. She denies any documented fever, sweats, lightheadedness, dizziness, chest pain, hemoptysis, nausea, vomiting, abdominal pain, dysuria, increased urgency or frequency with urination. She was worked on the constipated side and daughter states she started Dulcolax which has been helping. In ED patient was not hypoxic and oxygen was saturating at 92 to 93%. She was tachycardic and did have a elevated lactate at 4.6. Initial treatment in ED was started and she received vancomycin, cefepime and 500 mL IV fluid. She also received 125 mg of IV Solu-Medrol. She denies any prior hx of CAD, Asthma, COPD, or CHF. Daughter at bedside helps elicit hx. Allergies Allergy/AdvReac Type Severity Reaction Status Date / Time amoxicillin [From Augmentin] Allergy Intermediate poss Verified 07/13/23 12:21 vascultic rash clavulanic acid Allergy Intermediate poss Verified 07/13/23 12:21 [From Augmentin] vascultic rash Home Medications Medication Instructions Recorded Confirmed Type aspirin 81 mg tablet,delayed 81 mg PO DAILY 09/01/18 07/13/23 History release ([facility] Low Dose Aspirin) atorvastatin 20 mg tablet 20 mg PO PM 09/01/18 07/13/23 History lisinopril 10 mg tablet 10 mg PO DAILY 09/01/18 07/13/23 History benzonatate 100 mg capsule 100 mg PO TID PRN Cough 07/13/23 07/13/23 History diclofenac sodium 50 mg 50 mg PO Q8 PRN Pain 07/13/23 07/13/23 History tablet,delayed release pioglitazone 30 mg tablet 30 mg PO DAILY 07/13/23 07/13/23 History Past Med/Surg History Medical History Left lower quadrant abdominal pain Colitis Hematochezia Obesity (BMI 30-39.9) Dyslipidemia Osteoarthritis Vitamin D deficiency Osteoporosis CKD (chronic kidney disease), stage III DM type 2 (diabetes mellitus, type 2) HTN (hypertension) Surgical History S/P hysterectomy S/P cataract extraction Family History Other Diabetes Social History Smoking Status: Never smoker Second Hand Exposure: No; Do You Dip or Chew Tobacco: No; Hx Alcohol Use: No Hx Substance Use: No Preferred Language: Yoruba Communication Ability: Effective 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 Required: No Beliefs That Will Affect Care: None marital status: / Current Living Situation: Alone 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 How many Children do You have: 4 Feels Safe at Home: Yes Assistive Devices: Glasses Review of Systems Review of Systems: All systems reviewed & are unremarkable except as noted in HPI & below Physical Exam Physical Exam: Constitutional: WD/WN, acute ill, obese, elderly F, vitals as above, NAD, sitting up in bed, pleasant, conversing easily, wet cough noted on exam Head: Normocephalic, Atraumatic Eyes: PERRL, conjunctivae normal, anicteric sclerae ENMT: external ear and nose normal, oropharynx normal dry membranes Neck: trachea midline, no thyromegaly normal visual inspection Respiratory: normal respiratory effort, lungs clear to auscultation with decreased BSG at bases. no wheeze, rales, rhonchi. Normal insp/exp effort, no accessory muscle use Cardiovascular: RRR, no murmur, no edema Vessels: no JVD or carotid bruit Chest: normal inspection of chest Abdomen: normal bowel sounds, soft, nontender, no hepatosplenomegaly Musculoskeletal: no cyanosis or clubbing, AROM x 4 Skin: no rashes, warm and dry normal turgor Neurologic: PERRL, EOMI, accommodation nl, no face palsy, no dysarthria CN's II-XI intact bilaterally and moves all extremities Psychiatric: A+Ox3, euthymic affect : deferred Results & Data Results & Data Vital Signs (Past 12 Hours) Vital Signs Temp Pulse Pulse Resp BP BP Pulse Ox 07/13/23 12:27 109 H 07/13/23 08:27 88 07/13/23 08:11 93 H 20 171/81 H 94 07/13/23 08:11 94 07/13/23 08:04 36.9 C 97 H 18 171/81 H 95 O2 Del Method O2 Flow Rate 07/13/23 12:27 07/13/23 08:27 07/13/23 08:11 Room Air 07/13/23 08:11 Room Air 0 07/13/23 08:04 Room Air Diagnostic Findings Chest X-Ray 07/13/23 08:15 XR chest 1V portable CLINICAL HISTORY: Dyspnea. COMPARISON STUDY: Chest radiograph July 10, 2023. FINDINGS: Lung volumes are normal. Lungs are clear. There is no pneumothorax or pleural effusion. Mild cardiomegaly is unchanged. Mediastinal contours are normal. There is no evidence for pulmonary edema. IMPRESSION: No acute cardiopulmonary findings. No change in appearance of the chest. ACT 112: Negative or not required by law. Electronically signed by: Julien Duran M.D. 07/13/2023 8:42 AM Chest CTA 07/13/23 09:40 CT angio chest PE protocol CLINICAL HISTORY: covid+, SOB, elevated d-dimer, r/o PE TECHNIQUE: Multidetector row helical CT of the chest was performed with angiographic protocol. Coronal and sagittal reformations were obtained. Coronal and sagittal MIPS were obtained from the axial data set and were submitted for review. Automated dose lowering techniques and/or adjustment according to patient size were utilized for this exam. CT DOSE: 796.81 mGy.cm Comparison: None available at the time of this dictation. FINDINGS: Lungs and pleura: Groundglass opacities are in the right upper lobe. 3 mm nodule left upper lobe (series 4 image 131) and 2 mm nodule in the lingula (image 46) are seen. Heart and pericardium: Heart size is normal. No pericardial effusion. Vessels: Mild atherosclerotic changes in the aorta and coronary arteries. Mediastinum and serafin: Unremarkable. Chest wall and lower neck: Unremarkable. Abdomen: Unremarkable. Bones: Degenerative changes in the thoracic spine. IMPRESSION: 1. Groundglass opacities in the right upper lobe are compatible with viral pneumonia. No evidence of pulmonary embolus. 2. Pulmonary nodules as above. According to Fleischner criteria, no follow-up is required in low risk patients, in high-risk patients, a 12 month follow-up CT can be optionally performed. ACT 112: Negative or not required by law. Electronically signed by: Aubrey Marquis M.D. 07/13/2023 11:41 AM Medications Administered Medication List Discontinued Medications Albuterol (Albut/Ipratrop 3mg/0.5mg Neb 3 Ml Vial) 12 ml INH ONE STA Stop: 07/13/23 08:16 Last Admin: 07/13/23 08:33 Dose: 12 ml Documented By: KT Sodium Chloride (Nss) 500 mls @ 999 mls/hr IV .Q31M STA Stop: 07/13/23 08:45 Last Infusion: 07/13/23 09:30 Dose: Infused Documented By: Admin: 07/13/23 08:33 Dose: 999 mls/hr Documented By: KT Vancomycin HCl 2,000 mg/ (Sodium Chloride) 540 mls @ 200 mls/hr IV NOW ONE Stop: 07/13/23 12:57 Last Admin: 07/13/23 10:43 Dose: 200 mls/hr Documented By: KT Cefepime HCl (Maxipime) 2,000 mg in 20 mls @ 5 mls/min IV NOW STA; Protocol Stop: 07/13/23 10:19 Last Admin: 07/13/23 10:43 Dose: 5 mls/min Documented By: KT Ioversol (Optiray 320 500ml) 110 ml IV ONCE ONE Stop: 07/13/23 11:29 Last Admin: 07/13/23 11:28 Dose: 110 ml Documented By: CESAR Methylprednisolone (Methylprednisolone 125 Mg/2 Ml Vial) 125 mg IV NOW STA Stop: 07/13/23 08:16 Last Admin: 07/13/23 08:33 Dose: 125 mg Documented By: KT ECG Rate (beats per minute): 88 Rhythm: normal sinus COVID-19 Results Results COVID-19 Adm Lab Results: RBC 4.19 M/uL (4.20-5.40) L 07/13/23 WBC 4.07 K/ul (4.8-10.8) L 07/13/23 Hgb 12.0 g/dl (12.0-16.0) 07/13/23 Hct 37.1 % (37.0-47.0) 07/13/23 Plt Count 103 K/uL (130-400) L 07/13/23 Neutrophils (%) (Auto) 56.6 % 07/13/23 Lymphocytes (%) (Auto) 35.4 % 07/13/23 Monocytes # (Auto) 0.27 K/uL (0.11-0.59) 07/13/23 Eosinophils # (Auto) 0.00 K/uL (0.00-0.50) 07/13/23 Immature Granulocyte % (Auto) 1.2 % 07/13/23 Neutrophils # (Auto) 2.30 K/uL (1.40-6.50) 07/13/23 Lymphocytes # (Auto) 1.44 K/uL (1.20-3.40) 07/13/23 Monocytes # (Auto) 0.27 K/uL (0.11-0.59) 07/13/23 Eosinophils # (Auto) 0.00 K/uL (0.00-0.50) 07/13/23 Basophils # (Auto) 0.01 K/uL (0.00-0.20) 07/13/23 Immature Granulocyte # (Auto) 0.05 K/uL (0.01-0.20) 3 Na 139 mmol/L (136-145) 07/13/23 K 2.6 mmol/L (3.5-5.1) L 07/13/23 Cl 101 mmol/L (98-107) 07/13/23 CO2 25 mmol/L (21-32) 07/13/23 Anion Gap 13 (3-11) H 07/13/23 BUN 15 mg/dl (6-23) 07/13/23 Creatinine 0.91 mg/dl (0.6-1.2) 07/13/23 BUN/Creatinine Ratio 16.5 (10-20) 07/13/23 Glucose Level 128 mg/dl (70-99(Fasting)) H 07/13/23 Ca 8.7 mg/dl (8.6-10.3) 07/13/23 Total Bilirubin 0.6 mg/dl (0.2-1.0) 07/13/23 AST/SGOT 17 U/L (13-39) 07/13/23 ALT/SGPT 12 U/L (7-52) 07/13/23 Alkaline Phosphatase 55 U/L (34-104) 07/13/23 Total Protein 6.7 gm/dl (6.0-8.3) 07/13/23 Albumin 3.6 gm/dl (3.4-5.0) 07/13/23 Globulin 3.1 gm/dl (2.5-4.0) 07/13/23 Albumin/Globulin Ratio 1.2 (0.9-2) 07/13/23 Procalcitonin < 0.05 ng/ml (0-0.5) 07/13/23 D-Dimer 1190 ug/L FEU (0-500) H* 07/13/23 Chest X-Ray 07/13/23 Code Status & VTE Plan Code Status FULL CODE VTE Prophylaxis Plan VTE Prophylaxis will be ordered: Yes Supervising Physician Co-Signing Physician Notes I have seen and discussed the case with the collaborating YESICA. I agree with the above H&P. I have reviewed and confirmed the patients medical history, the findings on physical examination, and the patients diagnosis and treatment plan with Terrence ROBERT and agree with the information documented. In short, Ms. Lewis is an 87-year-old female who has a significant past medical history of T2DM, HTN, HLD deficiency and osteoporosis who is admitted due to shortness of breath iso COVID pneumonia. She was positive for COIVD on 07/09, but symptoms continnued and progressed over 24 hours with decreased PO intake and worsening cough. PE notable for ill looking elderly woman with dry cough and decreased bibasilar breath sounds. Plan: #COVID pneumonia #Lactate Acidosis -Imaging consistent with viral pneumonia; negative procal; suspect acidosis 2/2 poor intake given robust response to IVF -Symptomatic control -MRSA nares to r/o staph superimposed pneumonia--DC vanc if negative -Continue cefepime with plans to deescalate contingent on infectious work up #Hypokalemia -aggressive replacement of lytes, ensure mag, phos replaced Rest of plan as above
[2023-07-13] MEDS ORDERED: GLUCOSE 40% GEL 15 GM TUBE PO PRN (15:01)
[2023-07-13] MEDS ORDERED: POLYETHYLENE (MIRALAX) 17 GM PACK PO PRN (15:01)
[2023-07-13] MEDS ORDERED: CARBOHYDRATES FOR HYPOGLYCEMIA PO PRN (15:01)
[2023-07-13] MEDS ORDERED: GLUCAGON FOR INJ 1 MG VIAL SQ PRN (15:01)
[2023-07-13] MEDS ORDERED: ONDANSETRON INJ 2 MG/ML 2 ML VIAL IV PRN (15:01)
[2023-07-13] MEDS ORDERED: GLUCOSE 10 TAB/TUBE PO PRN (15:01)
[2023-07-13] MEDS ORDERED: MAGNESIUM HYDROXIDE SUSP 30 ML UDC PO PRN (15:01)
[2023-07-13] MEDS ORDERED: BENZONATATE 100 MG CAPSULE PO PRN (15:01)
[2023-07-13] MEDS ORDERED: ALUMINUM/MAGNESIUM SUSP 30 ML UDC PO PRN (15:01)
[2023-07-13] MEDS ORDERED: DEXTROSE 50% 50 ML SYRINGE IV PRN (15:01)
[2023-07-13] MEDS ORDERED: NSS + 20MEQ KCL 20 MEQ/1,000 ML BAG IV SCH (15:01)
[2023-07-13] MEDS ORDERED: ACETAMINOPHEN 325 MG TAB PO PRN (15:01)
[2023-07-13] MEDS ORDERED: ALBUTEROL 0.083% NEBU SOLN 3 ML VIAL NEB PRN (15:01)
[2023-07-13 15:02] LABS: Magnesium 1.5 mg/dl (1.7-2.4); Phosphorus 2.7 mg/dl (2.5-4.9)
[2023-07-13] MEDS ORDERED: POTASSIUM CHLORIDE CRTAB 20 MEQ TABCR PO ONE (16:00)
--- NOTE | 2023-07-13 16:50 | Electrocardiogram Report ---
Test Reason : Blood Pressure : / mmHG Vent. Rate : 101 BPM Atrial Rate : 101 BPM P-R Int : 168 ms QRS Dur : 078 ms QT Int : 344 ms P-R-T Axes : 024 -10 019 degrees QTc Int : 446 ms Sinus tachycardia Otherwise normal ECG When compared with ECG of 10-JUL-2023 00:15, No significant change was found Confirmed by Lefty Howard ([id number]) on 07/13/2023 4:49:55 PM Referred By: REFERRED SELF Confirmed By:Lefty Howard
[2023-07-13] MEDS: cefTRIAXone SODIUM 2,000 MG in DEXTROSE 5 % MINI-B 50 ML IV SCH (17:46)
[2023-07-13] MEDS: DOXYCYCLINE HYCLATE 100 MG CAP PO SCH (17:46)
[2023-07-13] MEDS: MAGNESIUM SULFATE / D5W 1 GM/100 ML BAG IV SCH ×2 (17:53→20:26)
[2023-07-13] MEDS: INSULIN ASPART PER UNIT CHARGE SC SCH ×2 (20:27→21:32)
[2023-07-13] MEDS: LANTUS PER UNIT CHARGE SQ SCH (21:32)
[2023-07-13] MEDS: guaiFENesin 600 MG TABCR PO SCH (21:33)
[2023-07-13] MEDS: FLUTICASONE PROPIONATE NA SPR 16 GM BTL SCH (21:33)
[2023-07-13] MEDS: ATORVASTATIN 20 MG TAB PO SCH (21:34)
[2023-07-13] MEDS: DOCUSATE SODIUM 100 MG CAP PO SCH (21:34)
[2023-07-13] MEDS: ENOXAPARIN INJ 40 MG/0.4 ML SYR SQ SCH (21:35)
[2023-07-14] MEDS: DOXYCYCLINE HYCLATE 100 MG CAP PO SCH ×2 (04:39→17:38)
[2023-07-14 07:35] LABS: Albumin Globulin Ratio 1.2 (0.9-2); Albumin Level 3.1 gm/dl (3.4-5.0); BUN Creatinine Ratio 20.9 (10-20); Bilirubin,Total 0.4 mg/dl (0.2-1.0); Calcium 8.1 mg/dl (8.6-10.3); Creatinine Clr Calc Pharmacy 50.1 ml/min; Est GFR (African American) 71.4 ml/min; Est GFR (Non-African American) 61.6 ml/min; Globulin 2.6 gm/dl (2.5-4.0); Magnesium 1.9 mg/dl (1.7-2.4); Potassium 4.5 mmol/L (3.5-5.1); Total Protein 5.7 gm/dl (6.0-8.3)
[2023-07-14 07:40] LABS: Hematocrit (blood only) 31.2 % (37.0-47.0); Immature Granulocytes # (auto) 0.06 K/uL (0.01-0.20); Immature Granulocytes % (auto) 1.2 %; Lymphocytes # (auto) 0.25 K/uL (1.20-3.40); Mean Corpuscular Hemoglobin 28.3 pg (25.0-34.0); Mean Corpuscular Hgb Conc 32.1 g/dL (32.0-36.0); Mean Corpuscular Volume 88.4 fL (80.0-100.0); Mean Platelet Volume 9.4 fL (9.4-12.4); Monocytes # (auto) 0.27 K/uL (0.11-0.59); Monocytes % (auto) 5.4 %; Neutrophils # (auto) 4.42 K/uL (1.40-6.50); Neutrophils % (auto) 88.4 %; Platelet Count 112 K/uL (130-400); RDW Standard Deviation 48.4 fL (36.4-46.3); Red Blood Count 3.53 M/uL (4.20-5.40)
[2023-07-14] MEDS ORDERED: PNEUMOCOCCAL VACCINE (PCV20) 20-VAL CONJ-DIP CRM/PF 0.5 ML SYR IM ONE (09:00)
--- NOTE | 2023-07-14 10:05 | Ultrasound Report ---
US venous doppler LE BI CLINICAL HISTORY: r/o dvt TECHNIQUE: Bilateral lower extremity real-time compression venous ultrasound with Color Doppler imagi ng. Utilizing real-time ultrasonic imaging multiple real time high-resolution ultrasonic images with compression and noncompression maneuvers of the deep venous system in addition to color doppler imagi ng were performed from the common femoral vein through the proximal calf veins. COMPARISON: Comparison is made to a venous ultrasound 01/18/2021 FINDINGS/IMPRESSION: Currently there is normal compressibility of the deep venous system from the common femoral vein thro ugh the proximal calf veins. No superficial venous thrombosis is identified. ACT 112: Negative or not required by law. Electronically signed by: Aubrey Marquis M.D. 07/14/2023 10:04 AM
[2023-07-14] MEDS: FLUTICASONE PROPIONATE NA SPR 16 GM BTL SCH ×2 (10:06→20:25)
[2023-07-14] MEDS: guaiFENesin 600 MG TABCR PO SCH ×2 (10:06→20:25)
[2023-07-14] MEDS: ENOXAPARIN INJ 40 MG/0.4 ML SYR SQ SCH ×2 (10:07→20:24)
[2023-07-14] MEDS: ASPIRIN 81 MG ECTAB PO SCH (10:07)
[2023-07-14] MEDS: DOCUSATE SODIUM 100 MG CAP PO SCH ×2 (10:07→20:26)
[2023-07-14] MEDS: INSULIN ASPART PER UNIT CHARGE SC SCH ×4 (10:33→20:23)
[2023-07-14] MEDS: LANTUS PER UNIT CHARGE SQ SCH ×2 (10:35→20:23)
--- NOTE | 2023-07-14 12:10 | Hospitalist Progress Note ---
Date of Service July 14, 2023 Assessment & Plan (1) Pneumonia due to COVID-19 virus: (2) Generalized weakness: (3) DM type 2 (diabetes mellitus, type 2): Plan This is an 87-year-old female who has a significant past medical history of T2DM, HTN, HLD deficiency and osteoporosis who presents to ED for shortness of breath x2 days. 1.) Sepsis, POA The medical record reflects the following clinical evidence: Clinical Indicators: Pt presented with worsening SOB and reportedly experiencing chills. HR 97-109. WBC 4.07, lactate 4.7, ER has suggested Sepsis in the impression. Treatment: 1.5L NSS bolus, IV vancomycin, IV fluids with KCL and IV K riders, IV cefepime, blood cx, IV rocephin, vibramycin, pending blood cultures Risk Factor(s): age DM, CKD stage III, COVID pneumonia, 2.) Morbid obesity with BMI 42 Pneumonia due to COVID-19 Possible Sepsis Generalized weakness Admit to med telemetry --CTA: IMPRESSION:1. Groundglass opacities in the right upper lobe are compatible with viral pneumonia. No evidence of pulmonary embolus.2. Pulmonary nodules as above. According to Fleischner criteria, no follow-up is required in low risk patients, in high-risk patients, a 12 month follow-up CT can be optionally performed. She is currently on day 9 of symptoms and therefore does not meet criteria for remdesivir She did receive IV Solu-Medrol in ED; however currently clinically steroid not indicated as she is not hypoxic and not currently wheezing We will treat supportively for now with as needed nebulizer, flutter valve, antitussives PT/OT Empirically treat with IV Rocephin and oral doxycycline to cover for possible bacterial component of pneumonia Pt does not meet Sepsis criteria 07/13 stable on room air add Remdesevir, Day 1 monitor Crea, LFTs explained benefits and risks to patient and she is accepting continue Ceftri, Doxy Mucinex IS, FV Hypokalemia resolved Lactic acidosis admitting lactic acid 4.7, repeat 2.5 after only 500ml of IVF give additional 1L of IVF in ED improved T2DM Well-controlled, last A1c 6.0 on 06/26/2023 Hold Actos Lantus/NovoLog per protocol HTN resume Lisinopril HLD chronic, stable continue statin Pulmonary nodules noted on CT recommend repeat CT in 12 months PCP to arrange DVT ppx: SQ Lovenox q12h PCP: Rocco FULL CODE Dispo: anticipate d/c home when medically Admission and Anticipated Discharge Date Admission Date: July 13, 2023 Subjective ff up for COVID 19 infection, etc seen resting in chair, comfortable states she feels ok breathing is fine still has dry cough no chest pain no abdominal pain, diarrhea Review of Systems Review of Systems: all noted and negative except for above Physical Exam Physical Exam: General- oriented x 3, not in distress, speaks in sentences with no effort or accessory muscle use Eyes- anicteric Neck- no JVD Lungs- clear breath sounds bilaterally, no rales/wheezes Heart- normal rate, regular rhythm; no murmurs Abdomen- normal bowel sounds, nondistended, soft, nontender Extremities- no pretibial edema, no calf tenderness Neuro- alert, oriented x 3; no gross focal neurologic deficits Skin- warm & dry Results & Data Results & Data Vital Signs (Past 12 Hours) Vital Signs Temp Pulse Pulse Resp BP Pulse Ox O2 Del Method 07/14/23 11:28 36.9 C 95 H 18 144/74 H 95 Room Air 07/14/23 07:54 36.5 C 70 16 123/72 95 07/14/23 07:14 73 07/14/23 07:14 Room Air 07/14/23 04:02 36.7 C 102 H 20 157/72 H 95 Room Air 07/14/23 04:01 77 all noted and reviewed including below
[2023-07-14] MEDS ORDERED: hydrALAZINE HCL 20 MG/ML VIAL IV PRN (16:50)
[2023-07-14] MEDS ORDERED: REMDESIVIR 200 MG in SODIUM CHLORIDE 0.9% 210 ML IV STA (16:57)
[2023-07-14] MEDS: cefTRIAXone SODIUM 2,000 MG in DEXTROSE 5 % MINI-B 50 ML IV SCH (17:36)
[2023-07-14] MEDS: lisinopril 10 MG TAB PO SCH (18:26)
[2023-07-14] MEDS: ATORVASTATIN 20 MG TAB PO SCH (20:26)
[2023-07-15] MEDS: DOXYCYCLINE HYCLATE 100 MG CAP PO SCH ×2 (04:59→18:15)
[2023-07-15 07:10] LABS: Albumin Level 3.2 gm/dl (3.4-5.0); Bilirubin,Total 0.4 mg/dl (0.2-1.0); Calcium 8.2 mg/dl (8.6-10.3); Potassium 4.2 mmol/L (3.5-5.1)
[2023-07-15 07:16] LABS: Albumin Globulin Ratio 1.2 (0.9-2); BUN Creatinine Ratio 24.1 (10-20); Creatinine Clr Calc Pharmacy 51.9 ml/min; Est GFR (African American) 74.5 ml/min; Est GFR (Non-African American) 64.3 ml/min; Globulin 2.7 gm/dl (2.5-4.0); Total Protein 5.9 gm/dl (6.0-8.3)
[2023-07-15] MEDS: DOCUSATE SODIUM 100 MG CAP PO SCH ×2 (08:10→20:13)
[2023-07-15] MEDS: ASPIRIN 81 MG ECTAB PO SCH (08:10)
[2023-07-15] MEDS: FLUTICASONE PROPIONATE NA SPR 16 GM BTL SCH ×2 (08:11→20:12)
[2023-07-15] MEDS: ENOXAPARIN INJ 40 MG/0.4 ML SYR SQ SCH ×2 (08:12→20:15)
[2023-07-15] MEDS: guaiFENesin 600 MG TABCR PO SCH ×2 (08:12→20:13)
[2023-07-15] MEDS: ADVANCED PROBIOTIC 1250 MG CAPSULE PO SCH (08:12)
[2023-07-15] MEDS: lisinopril 10 MG TAB PO SCH (08:12)
[2023-07-15] MEDS: LANTUS PER UNIT CHARGE SQ SCH ×2 (08:14→20:15)
[2023-07-15] MEDS: INSULIN ASPART PER UNIT CHARGE SC SCH ×4 (08:15→20:13)
[2023-07-15] MEDS: cefTRIAXone SODIUM 2,000 MG in DEXTROSE 5 % MINI-B 50 ML IV SCH (15:20)
[2023-07-15] MEDS ORDERED: FUROSEMIDE INJ 20 MG/2 ML VIAL IV ONE (18:25)
--- NOTE | 2023-07-15 18:30 | Hospitalist Progress Note ---
Date of Service July 15, 2023 Assessment & Plan (1) Pneumonia due to COVID-19 virus: (2) Generalized weakness: (3) DM type 2 (diabetes mellitus, type 2): Plan This is an 87-year-old female who has a significant past medical history of T2DM, HTN, HLD deficiency and osteoporosis who presents to ED for shortness of breath x2 days. Pneumonia due to COVID-19 Possible Sepsis, POA Generalized weakness Admit to med telemetry --CTA: IMPRESSION:1. Groundglass opacities in the right upper lobe are compatible with viral pneumonia. No evidence of pulmonary embolus.2. Pulmonary nodules as above. According to Fleischner criteria, no follow-up is required in low risk patients, in high-risk patients, a 12 month follow-up CT can be optionally performed. She is currently on day 9 of symptoms and therefore does not meet criteria for remdesivir She did receive IV Solu-Medrol in ED; however currently clinically steroid not indicated as she is not hypoxic and not currently wheezing We will treat supportively for now with as needed nebulizer, flutter valve, antitussives PT/OT Empirically treat with IV Rocephin and oral doxycycline to cover for possible bacterial component of pneumonia Pt does not meet Sepsis criteria 07/15 stable Remains on room air Continue remdesivir day #2 monitor Crea, LFTs-stable continue empiri Ceftri, Doxy Mucinex IS, FV Ordered 1 dose of Lasix 20 mg IV for lower extremity edema Monitor closely Hypokalemia resolved Lactic acidosis admitting lactic acid 4.7, repeat 2.5 after only 500ml of IVF give additional 1L of IVF in ED improved T2DM Well-controlled, last A1c 6.0 on 06/26/2023 Hold Actos Lantus/NovoLog per protocol HTN Lisinopril As needed hydralazine HLD chronic, stable continue statin Pulmonary nodules noted on CT recommend repeat CT in 12 months PCP to arrange Morbid obesity with BMI 42 DVT ppx: SQ Lovenox q12h PCP: Pilgram FULL CODE Dispo: anticipate d/c home when medically stable Admission and Anticipated Discharge Date Admission Date: July 13, 2023 Subjective Follow-up for COVID-19 pneumonia, etc. Seen resting in bedside chair comfortable, watching TV On room air States that she feels fine overall Breathing is okay, less cough No chest pain No diarrhea, appetite is okay Reports leg swelling, but no pain Review of Systems Review of Systems: all noted and negative except for above Physical Exam Physical Exam: General- oriented x 3, not in distress, speaks in sentences with no effort or accessory muscle use Eyes- anicteric Neck- no JVD Lungs-mild rhonchi right upper lobe, no wheezing, no other crackles noted Heart- normal rate, regular rhythm; no murmurs Abdomen- normal bowel sounds, nondistended, soft, nontender Extremities-grade 1 lower extremity edema, no calf tenderness Neuro- alert, oriented x 3; no gross focal neurologic deficits Skin- warm & dry Results & Data Results & Data Vital Signs (Past 12 Hours) Vital Signs Temp Pulse Pulse Resp BP Pulse Ox O2 Del Method 07/15/23 16:18 77 07/15/23 15:43 36.7 C 72 16 164/82 H 96 Room Air 07/15/23 11:43 37.0 C 75 16 166/74 H 92 Room Air 07/15/23 10:45 77 07/15/23 10:45 Nasal Cannula 07/15/23 07:29 37.0 C 86 16 169/87 H 93 Room Air all noted and reviewed including below
[2023-07-15] MEDS: ATORVASTATIN 20 MG TAB PO SCH (20:15)
[2023-07-15] MEDS: REMDESIVIR 100 MG in SODIUM CHLORIDE 0.9% 230 ML IV SCH (21:03)
[2023-07-16] MEDS: DOXYCYCLINE HYCLATE 100 MG CAP PO SCH ×2 (05:45→16:35)
[2023-07-16 07:08] LABS: Albumin Globulin Ratio 1.2 (0.9-2); Albumin Level 3.4 gm/dl (3.4-5.0); BUN Creatinine Ratio 27.1 (10-20); Bilirubin,Total 0.4 mg/dl (0.2-1.0); Calcium 8.6 mg/dl (8.6-10.3); Creatinine Clr Calc Pharmacy 61.5 ml/min; Est GFR (African American) 91.6 ml/min; Globulin 2.9 gm/dl (2.5-4.0); Potassium 4.3 mmol/L (3.5-5.1); Total Protein 6.3 gm/dl (6.0-8.3)
[2023-07-16] MEDS: ADVANCED PROBIOTIC 1250 MG CAPSULE PO SCH (08:58)
[2023-07-16] MEDS: ASPIRIN 81 MG ECTAB PO SCH (08:58)
[2023-07-16] MEDS: guaiFENesin 600 MG TABCR PO SCH ×2 (08:58→21:11)
[2023-07-16] MEDS: FLUTICASONE PROPIONATE NA SPR 16 GM BTL SCH ×2 (08:58→21:11)
[2023-07-16] MEDS: DOCUSATE SODIUM 100 MG CAP PO SCH ×2 (08:58→21:12)
[2023-07-16] MEDS: lisinopril 10 MG TAB PO SCH (08:59)
[2023-07-16] MEDS: ENOXAPARIN INJ 40 MG/0.4 ML SYR SQ SCH ×2 (08:59→21:13)
[2023-07-16] MEDS: INSULIN ASPART PER UNIT CHARGE SC SCH ×4 (09:03→21:13)
[2023-07-16] MEDS: LANTUS PER UNIT CHARGE SQ SCH ×2 (09:04→21:13)
[2023-07-16] MEDS: cefTRIAXone SODIUM 2,000 MG in DEXTROSE 5 % MINI-B 50 ML IV SCH (16:33)
[2023-07-16] MEDS: REMDESIVIR 100 MG in SODIUM CHLORIDE 0.9% 230 ML IV SCH (21:09)
[2023-07-16] MEDS: ATORVASTATIN 20 MG TAB PO SCH (21:12)
[2023-07-17] MEDS: DOXYCYCLINE HYCLATE 100 MG CAP PO SCH ×2 (04:39→17:35)
[2023-07-17 09:37] LABS: Albumin Globulin Ratio 1.2 (0.9-2); Albumin Level 3.2 gm/dl (3.4-5.0); BUN Creatinine Ratio 27.1 (10-20); Bilirubin,Total 0.6 mg/dl (0.2-1.0); Calcium 8.5 mg/dl (8.6-10.3); Creatinine Clr Calc Pharmacy 60.7 ml/min; Est GFR (African American) 91.6 ml/min; Globulin 2.7 gm/dl (2.5-4.0); Potassium 3.7 mmol/L (3.5-5.1); Total Protein 5.9 gm/dl (6.0-8.3)
[2023-07-17] MEDS: LANTUS PER UNIT CHARGE SQ SCH ×2 (09:38→20:51)
[2023-07-17] MEDS: INSULIN ASPART PER UNIT CHARGE SC SCH ×4 (09:40→20:50)
[2023-07-17] MEDS: ASPIRIN 81 MG ECTAB PO SCH ×2 (09:41→11:22)
[2023-07-17] MEDS: DOCUSATE SODIUM 100 MG CAP PO SCH ×2 (09:41→20:54)
[2023-07-17] MEDS: ADVANCED PROBIOTIC 1250 MG CAPSULE PO SCH ×2 (09:42→11:22)
[2023-07-17] MEDS: guaiFENesin 600 MG TABCR PO SCH ×2 (09:42→20:54)
[2023-07-17] MEDS: ENOXAPARIN INJ 40 MG/0.4 ML SYR SQ SCH ×2 (09:42→20:51)
[2023-07-17] MEDS: lisinopril 10 MG TAB PO SCH ×2 (09:42→11:21)
[2023-07-17] MEDS: FLUTICASONE PROPIONATE NA SPR 16 GM BTL SCH ×2 (09:42→20:55)
[2023-07-17] MEDS: cefTRIAXone SODIUM 2,000 MG in DEXTROSE 5 % MINI-B 50 ML IV SCH (16:10)
--- NOTE | 2023-07-17 16:48 | Hospitalist Progress Note ---
Date of Service July 17, 2023 Delayed entry Date of service 07/16/2023 Assessment & Plan (1) Pneumonia due to COVID-19 virus: (2) Generalized weakness: (3) DM type 2 (diabetes mellitus, type 2): Plan This is an 87-year-old female who has a significant past medical history of T2DM, HTN, HLD deficiency and osteoporosis who presents to ED for shortness of breath x2 days. Pneumonia due to COVID-19 Possible Sepsis, POA Generalized weakness Admit to med telemetry --CTA: IMPRESSION:1. Groundglass opacities in the right upper lobe are compatible with viral pneumonia. No evidence of pulmonary embolus.2. Pulmonary nodules as above. According to Fleischner criteria, no follow-up is required in low risk patients, in high-risk patients, a 12 month follow-up CT can be optionally performed. She is currently on day 9 of symptoms and therefore does not meet criteria for remdesivir She did receive IV Solu-Medrol in ED; however currently clinically steroid not indicated as she is not hypoxic and not currently wheezing We will treat supportively for now with as needed nebulizer, flutter valve, antitussives PT/OT Empirically treat with IV Rocephin and oral doxycycline to cover for possible bacterial component of pneumonia Pt does not meet Sepsis criteria 07/15 stable Remains on room air Continue remdesivir day #2 monitor Crea, LFTs-stable continue empiri Ceftri, Doxy Mucinex IS, FV Ordered 1 dose of Lasix 20 mg IV for lower extremity edema Monitor closely 07/16 Stable Continue remdesivir day #3 Labs stable Hypokalemia resolved Lactic acidosis admitting lactic acid 4.7, repeat 2.5 after only 500ml of IVF give additional 1L of IVF in ED improved T2DM Well-controlled, last A1c 6.0 on 06/26/2023 Hold Actos Lantus/NovoLog per protocol HTN Lisinopril As needed hydralazine HLD chronic, stable continue statin Pulmonary nodules noted on CT recommend repeat CT in 12 months PCP to arrange Morbid obesity with BMI 42 DVT ppx: SQ Lovenox q12h PCP: Pilgram FULL CODE Dispo: anticipate d/c home when medically stable Admission and Anticipated Discharge Date Admission Date: July 13, 2023 Subjective Follow-up for COVID-19 infection, etc. Seen resting in bed, comfortable, not in distress States she feels fine overall no chest pain, dyspnea, palpitations, dizziness No other new symptoms Review of Systems Review of Systems: all noted and negative except for above Physical Exam Physical Exam: General- oriented x 3, not in distress, speaks in sentences with no effort or accessory muscle use Eyes- anicteric Neck- no JVD Lungs- clear breath sounds bilaterally, no rales/wheezes Heart- normal rate, regular rhythm; no murmurs Abdomen- normal bowel sounds, nondistended, soft, nontender Extremities- no pretibial edema, no calf tenderness Neuro- alert, oriented x 3; no gross focal neurologic deficits Skin- warm & dry Results & Data Results & Data Vital Signs (Past 12 Hours) Vital Signs Temp Pulse Pulse Resp BP Pulse Ox O2 Del Method 07/17/23 16:00 37.0 C 86 16 159/85 H 94 Room Air 07/17/23 15:16 96 H 07/17/23 11:45 37.0 C 84 16 158/83 H 96 Room Air 07/17/23 10:40 Room Air 07/17/23 07:50 37.0 C 81 18 157/83 H 93 Room Air 07/17/23 07:17 77 all noted and reviewed including below
[2023-07-17] MEDS ORDERED: lisinopril 10 MG TAB PO ONE (16:52)
--- NOTE | 2023-07-17 16:52 | Hospitalist Progress Note ---
Date of Service July 17, 2023 Assessment & Plan (1) Pneumonia due to COVID-19 virus: (2) Generalized weakness: (3) DM type 2 (diabetes mellitus, type 2): Plan This is an 87-year-old female who has a significant past medical history of T2DM, HTN, HLD deficiency and osteoporosis who presents to ED for shortness of breath x2 days. Pneumonia due to COVID-19 Possible Sepsis, POA Generalized weakness Admit to med telemetry --CTA: IMPRESSION:1. Groundglass opacities in the right upper lobe are compatible with viral pneumonia. No evidence of pulmonary embolus.2. Pulmonary nodules as above. According to Fleischner criteria, no follow-up is required in low risk patients, in high-risk patients, a 12 month follow-up CT can be optionally performed. She is currently on day 9 of symptoms and therefore does not meet criteria for remdesivir She did receive IV Solu-Medrol in ED; however currently clinically steroid not indicated as she is not hypoxic and not currently wheezing We will treat supportively for now with as needed nebulizer, flutter valve, antitussives PT/OT Empirically treat with IV Rocephin and oral doxycycline to cover for possible bacterial component of pneumonia Pt does not meet Sepsis criteria 07/15 stable Remains on room air Continue remdesivir day #2 monitor Crea, LFTs-stable continue empiri Ceftri, Doxy Mucinex IS, FV Ordered 1 dose of Lasix 20 mg IV for lower extremity edema Monitor closely 07/16 Stable Continue remdesivir day #3 Labs stable 07/17 stable continue Remdesivir Day 4/5 Hypokalemia resolved Lactic acidosis admitting lactic acid 4.7, repeat 2.5 after only 500ml of IVF give additional 1L of IVF in ED improved T2DM Well-controlled, last A1c 6.0 on 06/26/2023 Hold Actos Lantus/NovoLog per protocol BSGs stable HTN increase Lisinopril to 20mg po daily As needed hydralazine HLD chronic, stable continue statin Pulmonary nodules noted on CT recommend repeat CT in 12 months PCP to arrange Morbid obesity with BMI 42 DVT ppx: SQ Lovenox q12h PCP: Pilgram FULL CODE Dispo: anticipate d/c home when medically stable Admission and Anticipated Discharge Date Admission Date: July 13, 2023 Subjective Follow-up for COVID infection, etc. Seen resting in bed, comfortable, not distressed States she continues to feels improved Breathing is better, no cough No leg pain, no other new symptom Review of Systems Review of Systems: all noted and negative except for above Physical Exam Physical Exam: General- oriented x 3, not in distress, speaks in sentences with no effort or accessory muscle use Eyes- anicteric Neck- no JVD Lungs- clear BS BL no rales/wheezing Heart- normal rate, regular rhythm; no murmurs Abdomen- normal bowel sounds, nondistended, soft, nontender Extremities- no pretibial edema, no calf tenderness Neuro- alert, oriented x 3; no gross focal neurologic deficits Skin- warm & dry Results & Data Results & Data Vital Signs (Past 12 Hours) Vital Signs Temp Pulse Pulse Resp BP Pulse Ox O2 Del Method 07/17/23 16:00 37.0 C 86 16 159/85 H 94 Room Air 07/17/23 15:16 96 H 07/17/23 11:45 37.0 C 84 16 158/83 H 96 Room Air 07/17/23 10:40 Room Air 07/17/23 07:50 37.0 C 81 18 157/83 H 93 Room Air 07/17/23 07:17 77 all noted and reviewed including below
[2023-07-17] MEDS: ATORVASTATIN 20 MG TAB PO SCH (20:53)
[2023-07-17] MEDS: REMDESIVIR 100 MG in SODIUM CHLORIDE 0.9% 230 ML IV SCH (20:55)
[2023-07-18] MEDS: DOXYCYCLINE HYCLATE 100 MG CAP PO SCH (05:21)
[2023-07-18 08:54] LABS: Albumin Level 3.2 gm/dl (3.4-5.0); Bilirubin,Total 0.8 mg/dl (0.2-1.0); Calcium 8.4 mg/dl (8.6-10.3); Potassium 3.8 mmol/L (3.5-5.1)
[2023-07-18 09:00] LABS: Albumin Globulin Ratio 1.3 (0.9-2); Creatinine Clr Calc Pharmacy 62.4 ml/min; Est GFR (African American) 92.4 ml/min; Est GFR (Non-African American) 79.8 ml/min; Globulin 2.5 gm/dl (2.5-4.0); Total Protein 5.7 gm/dl (6.0-8.3)
[2023-07-18] MEDS ORDERED: lisinopril 20 MG TAB PO SCH (09:00)
[2023-07-18] MEDS: INSULIN ASPART PER UNIT CHARGE SC SCH ×2 (09:03→12:43)
[2023-07-18] MEDS: DOCUSATE SODIUM 100 MG CAP PO SCH (09:04)
[2023-07-18] MEDS: LANTUS PER UNIT CHARGE SQ SCH (09:04)
[2023-07-18] MEDS: guaiFENesin 600 MG TABCR PO SCH (11:00)
[2023-07-18] MEDS: ASPIRIN 81 MG ECTAB PO SCH (11:00)
[2023-07-18] MEDS: ADVANCED PROBIOTIC 1250 MG CAPSULE PO SCH (11:00)
[2023-07-18] MEDS: ENOXAPARIN INJ 40 MG/0.4 ML SYR SQ SCH (11:01)
[2023-07-18] MEDS: FLUTICASONE PROPIONATE NA SPR 16 GM BTL SCH (11:01)
[2023-07-18] MEDS: REMDESIVIR 100 MG in SODIUM CHLORIDE 0.9% 230 ML IV SCH (12:06)
--- NOTE | 2023-07-18 12:44 | Hospitalist Progress Note ---
Date of Service July 18, 2023 Assessment & Plan (1) Pneumonia due to COVID-19 virus: (2) Generalized weakness: (3) DM type 2 (diabetes mellitus, type 2): Plan This is an 87-year-old female who has a significant past medical history of T2DM, HTN, HLD deficiency and osteoporosis who presents to ED for shortness of breath x2 days. Pneumonia due to COVID-19 Possible Sepsis, POA Generalized weakness Admit to med telemetry --CTA: IMPRESSION:1. Groundglass opacities in the right upper lobe are compatible with viral pneumonia. No evidence of pulmonary embolus.2. Pulmonary nodules as above. According to Fleischner criteria, no follow-up is required in low risk patients, in high-risk patients, a 12 month follow-up CT can be optionally performed. She is currently on day 9 of symptoms and therefore does not meet criteria for remdesivir She did receive IV Solu-Medrol in ED; however currently clinically steroid not indicated as she is not hypoxic and not currently wheezing We will treat supportively for now with as needed nebulizer, flutter valve, antitussives PT/OT Empirically treat with IV Rocephin and oral doxycycline to cover for possible bacterial component of pneumonia Pt does not meet Sepsis criteria 07/15 stable Remains on room air Continue remdesivir day #2 monitor Crea, LFTs-stable continue empiri Ceftri, Doxy Mucinex IS, FV Ordered 1 dose of Lasix 20 mg IV for lower extremity edema Monitor closely 07/16 Stable Continue remdesivir day #3 Labs stable 07/17 stable continue Remdesivir Day 4/5 Hypokalemia resolved Lactic acidosis admitting lactic acid 4.7, repeat 2.5 after only 500ml of IVF give additional 1L of IVF in ED improved T2DM Well-controlled, last A1c 6.0 on 06/26/2023 Hold Actos Lantus/NovoLog per protocol BSGs stable HTN increase Lisinopril to 20mg po daily As needed hydralazine HLD chronic, stable continue statin Pulmonary nodules noted on CT recommend repeat CT in 12 months PCP to arrange Morbid obesity with BMI 42 DVT ppx: SQ Lovenox q12h PCP: Pilgram FULL CODE Dispo: anticipate d/c home when medically stable Admission and Anticipated Discharge Date Admission Date: July 13, 2023 Results & Data Results & Data Vital Signs (Past 12 Hours) Vital Signs Temp Pulse Pulse Pulse Resp BP BP 07/18/23 09:55 07/18/23 08:17 36.6 C 102 H 18 164/91 H 07/18/23 07:27 112 H 07/18/23 03:51 37.1 C 102 H 18 138/78 Pulse Ox O2 Del Method 07/18/23 09:55 Room Air 07/18/23 08:17 95 Room Air 07/18/23 07:27 07/18/23 03:51 94 Room Air
--- NOTE | 2023-07-18 18:28 | Discharge Summary ---
Discharge Summary Date of Service July 18, 2023 Notes For Next Care Provider Medication Changes From Visit Lisinopril increased to 20 mg p.o. daily Admission HPI Per Admitting Provider This is an 87-year-old female who has a significant past medical history of T2DM, HTN, HLD deficiency and osteoporosis who presents to ED for shortness of breath x2 days. Of significance patient was seen in ED on 07/10/2023 secondary to URI symptoms and tested positive for COVID-19. She was discharged with Preston Pelaez and Marjorie. Initially she had been doing well; however, over the last 2 days she become increasingly shortness of breath with minimal activity, increasing productive cough. She is unsure of purulence, cough. She notes that at all last night due to pain with coughing. She also complained of being chilled and overall generally weak. Her daughter is at bedside who assist her with her medications. She states she had difficulty even getting out of bed this morning and therefore she called EMS. Overall appetite has been poor and she has not been eating or drinking well over the last 2 days. She also tried [id number] NyQuil without much relief. She denies any documented fever, sweats, lightheadedness, dizziness, chest pain, hemoptysis, nausea, vomiting, abdominal pain, dysuria, increased urgency or frequency with urination. She was worked on the constipated side and daughter states she started Dulcolax which has been helping. In ED patient was not hypoxic and oxygen was saturating at 92 to 93%. She was tachycardic and did have a elevated lactate at 4.6. Initial treatment in ED was started and she received vancomycin, cefepime and 500 mL IV fluid. She also received 125 mg of IV Solu-Medrol. She denies any prior hx of CAD, Asthma, COPD, or CHF. Daughter at bedside helps elicit hx. Admission Exam Per Admitting Provider Constitutional: WD/WN, acute ill, obese, elderly F, vitals as above, NAD, sitting up in bed, pleasant, conversing easily, wet cough noted on exam Head: Normocephalic, Atraumatic Eyes: PERRL, conjunctivae normal, anicteric sclerae ENMT: external ear and nose normal, oropharynx normal dry membranes Neck: trachea midline, no thyromegaly normal visual inspection Respiratory: normal respiratory effort, lungs clear to auscultation with decreased BSG at bases. no wheeze, rales, rhonchi. Normal insp/exp effort, no accessory muscle use Cardiovascular: RRR, no murmur, no edema Vessels: no JVD or carotid bruit Chest: normal inspection of chest Abdomen: normal bowel sounds, soft, nontender, no hepatosplenomegaly Musculoskeletal: no cyanosis or clubbing, AROM x 4 Skin: no rashes, warm and dry normal turgor Neurologic: PERRL, EOMI, accommodation nl, no face palsy, no dysarthria CN's II-XI intact bilaterally and moves all extremities Psychiatric: A+Ox3, euthymic affect : deferred Principal Dx & Hospital Course #1 = Principal Diagnosis (1) Pneumonia due to COVID-19 virus: (2) Generalized weakness: (3) DM type 2 (diabetes mellitus, type 2): Plan This is an 87-year-old female who has a significant past medical history of T2DM, HTN, HLD deficiency and osteoporosis who presents to ED for shortness of breath x2 days. Pneumonia due to COVID-19 Possible Sepsis, POA Generalized weakness Pulmonary nodules Admit to med telemetry --CTA: IMPRESSION:1. Groundglass opacities in the right upper lobe are compatible with viral pneumonia. No evidence of pulmonary embolus.2. Pulmonary nodules as above. According to Fleischner criteria, no follow-up is required in low risk patients, in high-risk patients, a 12 month follow-up CT can be optionally performed. Patient completed 5-day course of remdesivir Also given ceftriaxone plus doxycycline Remained stable, cough improved Remained on room air with good oxygen saturation next Renal function and LFTs also stable Repeat BMP and LFTs and follow-up with PCP Follow-up CT chest to evaluate pulmonary nodules Hypokalemia resolved Lactic acidosis Resolved T2DM Well-controlled, last A1c 6.0 on 06/26/2023 Continue usual regimen BSGs stable HTN increase Lisinopril to 20mg po daily for better blood pressure control As needed hydralazine HLD chronic, stable continue statin Pulmonary nodules noted on CT recommend repeat CT PCP to arrange Morbid obesity with BMI 42 DVT ppx: SQ Lovenox q12h PCP: Pilgram FULL CODE Dispo: Discharge to home follow-up with PCP in 1 week Discharge Exam General- oriented x 3, not in distress, speaks in sentences with no effort or accessory muscle use Eyes- anicteric Neck- no JVD Lungs- clear breath sounds bilaterally, no rales/wheezes Heart- normal rate, regular rhythm; no murmurs Abdomen- normal bowel sounds, nondistended, soft, nontender Extremities- no pretibial edema, no calf tenderness Neuro- alert, oriented x 3; no gross focal neurologic deficits Skin- warm & dry Updated Medication List Medication Instructions Recorded Confirmed Type aspirin 81 mg tablet,delayed 81 mg PO DAILY 09/01/18 07/13/23 History release ([place]win Low Dose Aspirin) atorvastatin 20 mg tablet 20 mg PO PM 09/01/18 07/13/23 History benzonatate 100 mg capsule 100 mg PO TID PRN Cough 07/13/23 07/13/23 History diclofenac sodium 50 mg 50 mg PO Q8 PRN Pain 07/13/23 07/13/23 History tablet,delayed release pioglitazone 30 mg tablet 30 mg PO DAILY 07/13/23 07/13/23 History L.acidop,casei,lactis,rham-B.lact,mt 2 cap PO DAILY 14 days #28 caps 07/18/23 Rx 625 mg (10 billion cell) capsule (Advanced Probiotic) lisinopril 10 mg tablet 20 mg (2 x 10 mg) PO DAILY 30 days 07/18/23 Rx #60 tabs Hospital Stay Data Consultations 07/13/23 12:15 ED Decision to Admit Stat Diagnostic Imagining Performed Laboratory Results WBC 5.00 K/ul (4.8-10.8) 07/14/23 06:36 RBC 3.53 M/uL (4.20-5.40) L 07/14/23 06:36 Hgb 10.0 g/dl (12.0-16.0) L 07/14/23 06:36 Hct 31.2 % (37.0-47.0) L 07/14/23 06:36 MCV 88.4 fL (80.0-100.0) 07/14/23 06:36 MCH 28.3 pg (25.0-34.0) 07/14/23 06:36 MCHC 32.1 g/dL (32.0-36.0) 07/14/23 06:36 RDW Std Deviation 48.4 fL (36.4-46.3) H 07/14/23 06:36 RDW Coeff of Sam 15.0 % (11.5-14.5) H 07/14/23 06:36 Plt Count 112 K/uL (130-400) L 07/14/23 06:36 MPV 9.4 fL (9.4-12.4) 07/14/23 06:36 Immature Gran % (Auto) 1.2 % 07/14/23 06:36 Neut % (Auto) 88.4 % 07/14/23 06:36 Lymph % (Auto) 5.0 % 07/14/23 06:36 Merrick % (Auto) 5.4 % 07/14/23 06:36 Eos % (Auto) 0.0 % 07/14/23 06:36 Baso % (Auto) 0.0 % 07/14/23 06:36 Neut # (Auto) 4.42 K/uL (1.40-6.50) 07/14/23 06:36 Lymph # (Auto) 0.25 K/uL (1.20-3.40) L 07/14/23 06:36 Merrick # (Auto) 0.27 K/uL (0.11-0.59) 07/14/23 06:36 Eos # (Auto) 0.00 K/uL (0.00-0.50) 07/14/23 06:36 Baso # (Auto) 0.00 K/uL (0.00-0.20) 07/14/23 06:36 Immature Gran # (Auto) 0.06 K/uL (0.01-0.20) 07/14/23 06:36 D-Dimer 1190 ug/L FEU (0-500) H* 07/13/23 07:55 Sodium 138 mmol/L (136-145) 07/18/23 07:24 Potassium 3.8 mmol/L (3.5-5.1) 07/18/23 07:24 Chloride 103 mmol/L (98-107) 07/18/23 07:24 Carbon Dioxide 30 mmol/L (21-32) 07/18/23 07:24 Anion Gap 5 (3-11) 07/18/23 07:24 BUN 17 mg/dl (6-23) 07/18/23 07:24 Creatinine 0.68 mg/dl (0.6-1.2) 07/18/23 07:24 Est Cr Clr Drug Dosing 62.4 ml/min 07/18/23 07:24 Est GFR ( Amer) 92.4 ml/min 07/18/23 07:24 Est GFR (Non-Af Amer) 79.8 ml/min 07/18/23 07:24 BUN/Creatinine Ratio 25.0 (10-20) H 07/18/23 07:24 Glucose 106 mg/dl (70-99(Fasting)) H 07/18/23 07:24 POC Glucose 167 mg/dl (70-99) H 07/18/23 12:25 Lactate 2.2 mmol/L (0.4-2.0) H* 07/13/23 18:41 Calcium 8.4 mg/dl (8.6-10.3) L 07/18/23 07:24 Phosphorus 2.7 mg/dl (2.5-4.9) 07/13/23 09:56 Magnesium 1.9 mg/dl (1.7-2.4) 07/14/23 06:36 Total Bilirubin 0.8 mg/dl (0.2-1.0) 07/18/23 07:24 AST 16 U/L (13-39) 07/18/23 07:24 ALT 15 U/L (7-52) 07/18/23 07:24 Alkaline Phosphatase 44 U/L (34-104) 07/18/23 07:24 Troponin I High Sens 10.3 pg/ml (0-14) 07/13/23 09:56 B-Natriuretic Peptide 118 pg/ml (0-100) H 07/13/23 07:55 Total Protein 5.7 gm/dl (6.0-8.3) L 07/18/23 07:24 Albumin 3.2 gm/dl (3.4-5.0) L 07/18/23 07:24 Globulin 2.5 gm/dl (2.5-4.0) 07/18/23 07:24 Albumin/Globulin Ratio 1.3 (0.9-2) 07/18/23 07:24 Procalcitonin < 0.05 ng/ml (0-0.5) 07/13/23 07:55 Urine Color Yellow 07/13/23 09:42 Urine Appearance Clear (Clear) 07/13/23 09:42 Urine pH 6.5 (4.5-7.5) 07/13/23 09:42 Ur Specific [place] 1.010 (1.000-1.030) 07/13/23 09:42 Urine Protein Negative (Negative) 07/13/23 09:42 Urine Glucose (UA) Negative (Negative) 07/13/23 09:42 Urine Ketones Negative (Negative) 07/13/23 09:42 Urine Blood Negative (Negative) 07/13/23 09:42 Urine Nitrite Negative (Negative) 07/13/23 09:42 Urine Bilirubin Negative (Negative) 07/13/23 09:42 Urine Urobilinogen Negative (Negative) 07/13/23 09:42 Ur Leukocyte Esterase Negative (Negative) 07/13/23 09:42 Nasal Screen MRSA (PCR) Negative (Negative) 07/13/23 15:55 Impressions Chest X-Ray 07/13/23 08:15 XR chest 1V portable CLINICAL HISTORY: Dyspnea. COMPARISON STUDY: Chest radiograph July 10, 2023. FINDINGS: Lung volumes are normal. Lungs are clear. There is no pneumothorax or pleural effusion. Mild cardiomegaly is unchanged. Mediastinal contours are normal. There is no evidence for pulmonary edema. IMPRESSION: No acute cardiopulmonary findings. No change in appearance of the chest. ACT 112: Negative or not required by law. Electronically signed by: Julien Duran M.D. 07/13/2023 8:42 AM Chest CTA 07/13/23 09:40 CT angio chest PE protocol CLINICAL HISTORY: covid+, SOB, elevated d-dimer, r/o PE TECHNIQUE: Multidetector row helical CT of the chest was performed with angiographic protocol. Coronal and sagittal reformations were obtained. Coronal and sagittal MIPS were obtained from the axial data set and were submitted for review. Automated dose lowering techniques and/or adjustment according to patient size were utilized for this exam. CT DOSE: 796.81 mGy.cm Comparison: None available at the time of this dictation. FINDINGS: Lungs and pleura: Groundglass opacities are in the right upper lobe. 3 mm nodule left upper lobe (series 4 image 131) and 2 mm nodule in the lingula (image 46) are seen. Heart and pericardium: Heart size is normal. No pericardial effusion. Vessels: Mild atherosclerotic changes in the aorta and coronary arteries. Mediastinum and serafin: Unremarkable. Chest wall and lower neck: Unremarkable. Abdomen: Unremarkable. Bones: Degenerative changes in the thoracic spine. IMPRESSION: 1. Groundglass opacities in the right upper lobe are compatible with viral pneumonia. No evidence of pulmonary embolus. 2. Pulmonary nodules as above. According to Fleischner criteria, no follow-up is required in low risk patients, in high-risk patients, a 12 month follow-up CT can be optionally performed. ACT 112: Negative or not required by law. Electronically signed by: Aubrey Marquis M.D. 07/13/2023 11:41 AM Venous Doppler Study 07/14/23 07:51 US venous doppler LE BI CLINICAL HISTORY: r/o dvt TECHNIQUE: Bilateral lower extremity real-time compression venous ultrasound with Color Doppler imaging. Utilizing real-time ultrasonic imaging multiple real time high-resolution ultrasonic images with compression and noncompression maneuvers of the deep venous system in addition to color doppler imaging were performed from the common femoral vein through the proximal calf veins. COMPARISON: Comparison is made to a venous ultrasound 01/18/2021 FINDINGS/IMPRESSION: Currently there is normal compressibility of the deep venous system from the common femoral vein through the proximal calf veins. No superficial venous thrombosis is identified. ACT 112: Negative or not required by law. Electronically signed by: Aubrey Marquis M.D. 07/14/2023 10:04 AM 07/13/23 09:40 CT angio chest PE protocol Stat 07/14/23 07:51 US venous doppler LE BI Routine Pending Results Patient Have Any Pending Studies at Discharge: Yes Discharge Instructions Given to Patient (Per Discharging Provider) PLEASE REFER TO YOUR NEW MEDICATION LIST AND FOLLOW INSTRUCTIONS CAREFULLY. YOUR NEW MEDICATIONS INCLUDE: Increase lisinopril to 20 mg daily for better blood pressure control. Please take a probiotic every day for 1 month. Drink plenty of fluids. You still need to isolate for 5 more days to prevent spread of COVID-19 infecti on. PLEASE CALL YOUR PRIMARY CARE PHYSICIAN OR RETURN TO THE ER IF WITH WORSENING OF SYMPTOMS, INCLUDING Shortness of breath, cough, fevers or chills, Diarrhea, leg swelling, etc FOLLOW UP WITH PRIMARY CARE PHYSICIAN OUTLINED ABOVE. Total Time Total Time Spent Total Time Spent (In Minutes): 30 minutes
== END 2023-07-18 14:33 | disposition home or self-care (01) | DRG 871 ==
LOC: ED 07:47 → SUATTDRO 12:21 → EDINP 12:21 → 2N 14:56

== ENCOUNTER 2023-08-15 16:17 | Observation (INO) ==
[2023-08-15] MEDS ORDERED: SODIUM CHLORIDE 0.9% 500 ML IV ONE (16:46)
--- NOTE | 2023-08-15 16:49 | Emergency Department Note ---
Impression & Plan Dizziness, Blurred vision ED Provider Note Provider: Victor Manuel Devries MD DATE OF SERVICE: 08/15/2023 CHIEF COMPLAINT: Transient blurred vision, dizziness/unsteadiness HISTORY OF PRESENT ILLNESS: Patient is a 87-year-old female history of hypertension, type 2 diabetes, CKD, history of pneumonia presenting here today reporting that yesterday after home nursing visited in the morning she developed bilateral blurred vision that was off for just over 24 hours as well as feeling unsteady. Denies palpitations or headache or chest pain. Denies shortness of breath or cough or cold symptoms. Reports she denies any flashes or have eye pain but the vision was blurred. Did have dinner sleep wake up and had breakfast and lunch and the blurred vision persisted. Resolved and round in the ambulance. States she felt somewhat dizzy with it but not like things were moving. It is worse when she moves around to some degree. Denies new numbness or tingling in extremities or speech issue. Denies falling. Denies abdominal pain or nausea or vomiting at this time. Denies a history of similar. PAST MEDICAL HISTORY: As noted above MEDICATIONS: Reviewed home medications SOCIAL HISTORY: Lives by herself, denies alcohol use PHYSICAL EXAM: GENERAL: alert and oriented in no acute distress on stretcher Head: normocephalic and atraumatic EYES: No injection, discharge or icterus. PERRL, EOMI. NECK: Trachea midline. Supple. ENT: Mucous membranes pink and moist. LUNGS: Airway patent. No retractions. Breath sounds clear with good air entry bilaterally. HEART: Regular rate and rhythm. No chest wall tenderness ABDOMEN: Soft and non-tender, without guarding or rebound. SKIN: Acyanotic, warm, dry, without rashes EXTREMITIES: Without swelling, tenderness or deformity NEUROLOGICAL: No focal deficits. No aphasia. No facial droop or slurred speech. Normal strength and tone in the extremities. Sensation to gross touch normal. Ambulatory without assistance but initially little bit unsteady when standing at bedside. EK bpm sinus rhythm with PACs. No PVC. No acute ST segment elevation or depression with a QTc of 445. CONTINUOUS CARDIAC MONITORING: was ordered and showed a heart rate of 80s-90s bpm in sinus rhythm with frequent PACs Patient's laboratory studies and imaging reviewed. Differential includes Infection, dehydration, metabolic abnormality, hypo/hyperglycemia, electrolyte disturbance, anemia, hypoxia, cardiac sources, intracerebral event, toxicologic, neurologic, as well as other pathologies. IMPRESSION/MEDICAL DECISION MAKING: Bilateral blurred vision symptoms have resolved. The binocular nature leans against a primary ophthalmologic condition. No pain associated doubt GCA. No numbness or weakness or speech issues. Some PACs but no significant cardiac arrhythmia. Ongoing nature refractory to oral intake does not seem to indicate this was hypoglycemia. Will complete basic labs as well as CT of the head to exclude any other cranial abnormality not having pain and again symptoms been waxing and waning seems less likely to be CVA. Does not appear meningitic. Blood work without significant anemia or leukocytosis. No significant electrolyte abnormality signs of renal dysfunction. No evidence of hepatitis. No thyroid dysfunction noted. Troponin normal. Mildly elevated blood sugar in the 140s to 160s again does not seem consistent with hypoglycemic episodes. CT of the head as well as chest x-ray are reassuring per radiology without evidence of pneumonia, pulmonary edema, intracranial bleed, or obvious signs of stroke per CT. Again seems atypical given the waxing waning nature. Patient's daughter was at bedside as well. Patient is a bit closely but there are visual changes seems somewhat odd. Unclear that I have a true explanation for her symptoms at this time. Patient states she had return of her blurred vision upon coming back from the bathroom and upon sitting down felt much more unsteady. Again describes sort of bilateral blurriness but no acute visual field deficits or that things are necessarily spinning. Given however significant symptoms of unsteadiness with her age do of concerns about ability to go home, ambulate, and avoid falls. Has received some fluids and will trial some meclizine but unsure this will be very beneficial at this time. As such in shared decision-making with the patient and her daughter discussed with the hospitalist for further observation here. DIAGNOSIS: Blurred vision, unsteadiness/dizziness DISPOSITION: Hospitalist will evaluate Patient was agreeable with this plan as with the patient daughters. Past Med/Surg History Medical History Left lower quadrant abdominal pain Colitis Hematochezia Obesity (BMI 30-39.9) Dyslipidemia Osteoarthritis Vitamin D deficiency Osteoporosis CKD (chronic kidney disease), stage III DM type 2 (diabetes mellitus, type 2) HTN (hypertension) Surgical History S/P hysterectomy S/P cataract extraction Family History Other Diabetes Social History Smoking Status: Never smoker Second Hand Exposure: No; Do You Dip or Chew Tobacco: No; Hx Alcohol Use: No Hx Substance Use: No Preferred Language: [place] Communication Ability: Effective Photo Colorer Required: No Beliefs That Will Affect Care: None marital status: / Current Living Situation: Alone Current Living Situation Comment: family and friends check on frequently 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 How many Children do You have: 4 Feels Safe at Home: Yes Assistive Devices: None Allergies Allergies Allergy/AdvReac Type Severity Reaction Status Date / Time amoxicillin [From Augmentin] Allergy Intermediate poss Verified 07/13/23 12:21 vascultic rash clavulanic acid Allergy Intermediate poss Verified 07/13/23 12:21 [From Augmentin] vascultic rash Home Meds Home Medications Medication Instructions Recorded Confirmed aspirin 81 mg tablet,delayed 81 mg PO QAM 09/01/18 08/15/23 release (Edwin Low Dose Aspirin) atorvastatin 20 mg tablet 20 mg PO HS 09/01/18 08/15/23 benzonatate 100 mg capsule 100 mg PO TID PRN Cough 07/13/23 08/15/23 diclofenac sodium 50 mg 50 mg PO TID PRN Pain 07/13/23 08/15/23 tablet,delayed release pioglitazone 30 mg tablet 30 mg PO QAM 07/13/23 08/15/23 atorvastatin 20 mg tablet 20 mg PO QAM 08/15/23 08/15/23 Results & Data (ED) Vital Signs Vital Signs - 24 hr 08/15/23 16:02 08/15/23 16:02 Temperature 36.5 C Temperature Source Oral Pulse Rate 80 Respiratory Rate 18 Blood Pressure 164/68 H Blood Pressure Mean 100 Pulse Oximetry 97 99 Oxygen Delivery Method Room Air Room Air Sepsis Recent Fever Within 48 Hours No Sepsis New/Unexplained Change in Mental Status No Sepsis Action Taken by Nursing No Action Required Laboratory Data 08/15/23 16:50 08/15/23 16:50 Lab Results 08/15/23 08/15/23 Range/Units 16:23 16:50 WBC 5.84 (4.8-10.8) K/ul RBC 4.48 (4.20-5.40) M/uL Hgb 12.9 (12.0-16.0) g/dl Hct 40.7 (37.0-47.0) % MCV 90.8 (80.0-100.0) fL MCH 28.8 (25.0-34.0) pg MCHC 31.7 L (32.0-36.0) g/dL RDW Std Deviation 55.0 H (36.4-46.3) fL RDW Coeff of Sam 16.3 H (11.5-14.5) % Plt Count 228 (130-400) K/uL MPV 9.4 (9.4-12.4) fL Immature Gran % (Auto) 0.3 % Neut % (Auto) 74.0 % Lymph % (Auto) 18.5 % [place] % (Auto) 6.2 % Eos % (Auto) 0.5 % Baso % (Auto) 0.5 % Neut # (Auto) 4.32 (1.40-6.50) K/uL Lymph # (Auto) 1.08 L (1.20-3.40) K/uL [place] # (Auto) 0.36 (0.11-0.59) K/uL Eos # (Auto) 0.03 (0.00-0.50) K/uL Baso # (Auto) 0.03 (0.00-0.20) K/uL Immature Gran # (Auto) 0.02 (0.01-0.20) K/uL PT 10.6 (9.0-12.0) Seconds INR 1.0 (0.9-1.1) APTT 33 H (21-31) Seconds PTT Ratio 1.2 Sodium 138 (136-145) mmol/L Potassium 3.7 (3.5-5.1) mmol/L Chloride 103 (98-107) mmol/L Carbon Dioxide 27 (21-32) mmol/L Anion Gap 8 (3-11) BUN 21 (6-23) mg/dl Creatinine 0.83 (0.6-1.2) mg/dl Est Cr Clr Drug Dosing 48.7 ml/min Est GFR ( Amer) 74.5 ml/min Est GFR (Non-Af Amer) 64.3 ml/min BUN/Creatinine Ratio 25.3 H (10-20) Glucose 141 H (70-99(Fasting)) mg/dl POC Glucose 165 H (70-99) mg/dl Calcium 9.4 (8.6-10.3) mg/dl Magnesium 1.9 (1.7-2.4) mg/dl Total Bilirubin 0.8 (0.2-1.0) mg/dl AST 19 (13-39) U/L ALT 17 (7-52) U/L Alkaline Phosphatase 62 (34-104) U/L Troponin I High Sens 8.2 (0-14) pg/ml Total Protein 7.4 (6.0-8.3) gm/dl Albumin 4.0 (3.4-5.0) gm/dl Globulin 3.4 (2.5-4.0) gm/dl Albumin/Globulin Ratio 1.2 (0.9-2) TSH 2.223 (0.300-4.500) uIu/ml Administered Medications Discontinued Medications Sodium Chloride (Nss) 500 mls @ 999 mls/hr IV .Q31M ONE Stop: 08/15/23 17:16 Last Infusion: 08/15/23 18:32 Dose: Infused Documented By: Admin: 08/15/23 17:19 Dose: 999 mls/hr Documented By: ACC Sodium Chloride (Nss) 250 mls @ 999 mls/hr IV .Q16M ONE Stop: 08/15/23 19:49 Last Admin: 08/15/23 21:04 Dose: Not Given Documented By: ACC Magnesium Sulfate/Dextrose (Magnesium Sulfate / D5w) 1 gm in 100 mls @ 50 mls/hr IV ONE ONE Stop: 08/15/23 21:52 Last Admin: 08/15/23 21:04 Dose: 50 mls/hr Documented By: ACC Meclizine HCl (Meclizine Hcl 25 Mg Tab) 25 mg PO NOW STA Stop: 08/15/23 19:35 Last Admin: 08/15/23 21:04 Dose: 25 mg Documented By: ACC Imaging Data Radiologist's Impression: Chest X-Ray 08/15/23 16:45 XR chest 1V portable CLINICAL HISTORY: dizzy TECHNIQUE: Single frontal radiograph of the chest was obtained. Comparison: Comparison is made to chest radiograph 07/13/2023 FINDINGS: Exam is limited by underpenetration. Cardiomegaly is noted. The aortic arch is calcified. The lungs are clear. No evidence of pleural effusion or pneumothorax. IMPRESSION: No acute chest disease. ACT 112: Negative or not required by law. Electronically signed by: Aubrey Marquis M.D. 08/15/2023 5:[address] 08/15/23 16:45 CT head/brain wo con CLINICAL HISTORY: dizzy, transient blurred vision Technique: Contiguous axial CT images of the head were acquired from the base of the skull to the vertex without intravenous contrast administration. Images were viewed in brain, subdural and bone windows. Automated dose lowering techniques and/or adjustment according to patient size were utilized for this exam. Comparison: Comparison is made to CT head 06/17/2013 Findings: Areas of decreased attenuation are present in the periventricular and subcortical white matter bilaterally consistent with small vessel ischemic disease. Generalized cerebral atrophy with commensurate enlargement of the ventricles, sulci, and cisterns is also present. There is no acute intracranial hemorrhage or evidence of acute territorial infarction. No shift of the midline structures, mass effect, or extra-axial abnormalities are shown. Atherosclerotic calcifications are present in the intracranial segments of the internal carotid arteries. Imaged portions of the paranasal sinuses and mastoid air cells are clear. The orbits appear normal. There are no acute fractures of the calvaria or scalp swelling. Impression: No acute intracranial hemorrhage, no evidence of acute territorial infarction or other acute intracranial disease process. ACT 112: Negative or not required by law. Electronically signed by: Aubrey Marquis M.D. 08/15/2023 5:05 PM Discharge Plan Visit Data Chief Complaint: Neuro Symptoms/Deficit Stated Complaint: DIZZY, BLURRED VISION THIS AM, RESOLVED NOW ED Provider: Victor Manuel Devries Discharge Problem: Dizziness, Blurred vision Patient Disposition: Admitted As Inpatient Discharge Instructions Interventions: ED Discharge Assessment Last Done: 08/15/23 21:51
--- NOTE | 2023-08-15 17:08 | CT Scan Report ---
CT head/brain wo con CLINICAL HISTORY: dizzy, transient blurred vision Technique: Contiguous axial CT images of the head were acquired from the base of the skull to the jayson elysia without intravenous contrast administration. Images were viewed in brain, subdural and bone [facility]. Automated dose lowering techniques and/or adjustment according to patient size were utilized for this exam. Comparison: Comparison is made to CT head 06/17/2013 Findings: Areas of decreased attenuation are present in the periventricular and subcortical white matter bilate rally consistent with small vessel ischemic disease. Generalized cerebral atrophy with commensurate e nlargement of the ventricles, sulci, and cisterns is also present. There is no acute intracranial hem orrhage or evidence of acute territorial infarction. No shift of the midline structures, mass effect, or extra-axial abnormalities are shown. Atherosclerotic calcifications are present in the intracran ial segments of the internal carotid arteries. Imaged portions of the paranasal sinuses and mastoid air cells are clear. The orbits appear normal. There are no acute fractures of the calvaria or scalp swelling. Impression: No acute intracranial hemorrhage, no evidence of acute territorial infarction or other acute intracra nial disease process. ACT 112: Negative or not required by law. Electronically signed by: Aubrey Marquis M.D. 08/15/2023 5:05 PM
[2023-08-15 17:15] LABS: Basophils # (auto) 0.03 K/uL (0.00-0.20); Basophils % (auto) 0.5 %; Eosinophils # (auto) 0.03 K/uL (0.00-0.50); Eosinophils % (auto) 0.5 %; Hematocrit (blood only) 40.7 % (37.0-47.0); Hemoglobin 12.9 g/dl (12.0-16.0); Immature Granulocytes # (auto) 0.02 K/uL (0.01-0.20); Immature Granulocytes % (auto) 0.3 %; Lymphocytes # (auto) 1.08 K/uL (1.20-3.40); Lymphocytes % (auto) 18.5 %; Mean Corpuscular Hemoglobin 28.8 pg (25.0-34.0); Mean Corpuscular Hgb Conc 31.7 g/dL (32.0-36.0); Mean Corpuscular Volume 90.8 fL (80.0-100.0); Mean Platelet Volume 9.4 fL (9.4-12.4); Monocytes # (auto) 0.36 K/uL (0.11-0.59); Monocytes % (auto) 6.2 %; Neutrophils # (auto) 4.32 K/uL (1.40-6.50); Platelet Count 228 K/uL (130-400); RDW Coefficient of Variation 16.3 % (11.5-14.5); Red Blood Count 4.48 M/uL (4.20-5.40); White Blood Count 5.84 K/ul (4.8-10.8)
--- NOTE | 2023-08-15 17:25 | XRay Report ---
XR chest 1V portable CLINICAL HISTORY: dizzy TECHNIQUE: Single frontal radiograph of the chest was obtained. Comparison: Comparison is made to chest radiograph 07/13/2023 FINDINGS: Exam is limited by underpenetration. Cardiomegaly is noted. The aortic arch is calcified. The lungs a re clear. No evidence of pleural effusion or pneumothorax. IMPRESSION: No acute chest disease. ACT 112: Negative or not required by law. Electronically signed by: Aubrey Marquis M.D. 08/15/2023 5:24 PM
[2023-08-15 17:33] LABS: Albumin Globulin Ratio 1.2 (0.9-2); BUN Creatinine Ratio 25.3 (10-20); Bilirubin,Total 0.8 mg/dl (0.2-1.0); Calcium 9.4 mg/dl (8.6-10.3); Creatinine Clr Calc Pharmacy 48.7 ml/min; Est GFR (African American) 74.5 ml/min; Est GFR (Non-African American) 64.3 ml/min; Globulin 3.4 gm/dl (2.5-4.0); Magnesium 1.9 mg/dl (1.7-2.4); Potassium 3.7 mmol/L (3.5-5.1); Total Protein 7.4 gm/dl (6.0-8.3)
[2023-08-15 17:39] LABS: Troponin I High Sensitivity 8.2 pg/ml (0-14)
[2023-08-15 17:45] LABS: Partial Thromboplastin Ratio 1.2; Partial Thromboplastin Time 33 Seconds (21-31); Prothrombin Time 10.6 Seconds (9.0-12.0)
[2023-08-15 17:48] LABS: Thyroid Stimulating Hormone 2.223 uIu/ml (0.300-4.500)
[2023-08-15] MEDS ORDERED: SODIUM CHLORIDE 0.9% 250 ML IV ONE (19:34)
[2023-08-15] MEDS ORDERED: MECLIZINE HCL 25 MG TAB PO STA (19:34)
[2023-08-15] MEDS ORDERED: MAGNESIUM SULFATE / D5W 1 GM/100 ML BAG IV ONE (19:53)
[2023-08-15] MEDS ORDERED: NSS + 20MEQ KCL 20 MEQ/1,000 ML BAG IV ONE (20:44)
--- NOTE | 2023-08-15 20:44 | History & Physical Report ---
Date of Service August 15, 2023 Assessment & Plan (1) Dizziness: Plan: With intermittent blurred vision Rule out orthostasis given association with standing up Uncontrolled hypertension (possible noncompliance) and anxiety possibly contributory Hyperlipidemia on statin therapy DM 2, on oral meds, well controlled as of recent outpatient hemoglobin A1c of 6 last May 2023 Possible functional disability chronic thrombocytopenia OBS Medical telemetry Titrate home lisinopril anxiolytic as needed Outpatient Ophthalmology eval basal insulin, ISS BG goal 1 10-1 40, carb count coverage PT OT eval DVT prophylaxis. SCDs Re: Thrombocytopenia Full code Patient requests for her daughter to be updated of plan of care. Ms. Heather Bermudez, contact #[phone]. Text document was generated using [employer] voice recognition software. It may contain grammatical or spelling errors. Kindly contact undersigned for clarification of any documentation item in question. History of Present Illness Chief Complaint: Intermittent dizziness, blurred vision Primary Care Provider: Carlos Manuel Valiente MD History obtained from patient, family, and records. Medical history significant for HTN, hyperlipidemia, DM 2 on oral meds, chronic thrombocytopenia, memory impairment as per records Recent confinement last month for COVID-19 pneumonia. Yesterday morning, patient woke up with dizziness described as lightheadedness more pronounced on standing up with intermittent bilateral blurred vision. No headache, no chest pain, no SOB. No eye pain complaints. No slurred speech, facial droop, arm or leg weakness. Patient anxious from being alone at home as per daughter. Not eating as well. Patient does not check blood pressure at home and not sure about home meds. Patient brought to the ER for evaluation. SBP 160s upon arrival. Blurred vision symptoms resolved. 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 Allergies Allergy/AdvReac Type Severity Reaction Status Date / Time amoxicillin [From Augmentin] Allergy Intermediate poss Verified 07/13/23 12:21 vascultic rash clavulanic acid Allergy Intermediate poss Verified 07/13/23 12:21 [From Augmentin] vascultic rash Home Medications Medication Instructions Recorded Confirmed Type aspirin 81 mg tablet,delayed 81 mg PO QAM 09/01/18 08/15/23 History release (Edwin Low Dose Aspirin) atorvastatin 20 mg tablet 20 mg PO HS 09/01/18 08/15/23 History benzonatate 100 mg capsule 100 mg PO TID PRN Cough 07/13/23 08/15/23 History diclofenac sodium 50 mg 50 mg PO TID PRN Pain 07/13/23 08/15/23 History tablet,delayed release pioglitazone 30 mg tablet 30 mg PO QAM 07/13/23 08/15/23 History atorvastatin 20 mg tablet 20 mg PO QAM 08/15/23 08/15/23 History lisinopril 10 mg tablet 10 mg PO DAILY 08/16/23 08/16/23 History Past Med/Surg History Medical History Left lower quadrant abdominal pain Colitis Hematochezia Obesity (BMI 30-39.9) Dyslipidemia Osteoarthritis Vitamin D deficiency Osteoporosis CKD (chronic kidney disease), stage III DM type 2 (diabetes mellitus, type 2) HTN (hypertension) Surgical History S/P hysterectomy S/P cataract extraction Family History Other Diabetes Social History Smoking Status: Never smoker Second Hand Exposure: No; Do You Dip or Chew Tobacco: No; Hx Alcohol Use: No Hx Substance Use: No Preferred Language: Malian Communication Ability: Effective Raiser Helper Required: No Beliefs That Will Affect Care: None marital status: / Current Living Situation: Alone Current Living Situation Comment: family and friends check on frequently 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 How many Children do You have: 4 Feels Safe at Home: Yes Assistive Devices: None Review of Systems Review of Systems: As per HPI, all other systems reviewed and negative Physical Exam Physical Exam: GENERAL: Slightly uncomfortable, anxious, looks younger for stated age, obese, no respiratory distress SKIN: Normal color, warm HEENT: [place] palpebral conjunctivae, no ptosis, dry buccal mucosa NECK : Supple, short neck, no tenderness CHEST : CTA, no tenderness HEART : RRR, no obvious murmurs ABDOMEN: Some distention, nontender EXTREMITIES : minimal LE swelling without tenderness, no other conspicuous deformities noted NEUROLOGIC : Coherent, no facial asymmetry, no other gross focality Results & Data Results & Data Vital Signs (Past 12 Hours) Vital Signs Temp Pulse Resp BP Pulse Ox O2 Del Method 08/15/23 16:02 36.5 C 80 18 164/68 H 97 Room Air Diagnostic Findings Laboratory Results WBC 5.84 K/ul (4.8-10.8) 08/15/23 16:50 RBC 4.48 M/uL (4.20-5.40) 08/15/23 16:50 Hgb 12.9 g/dl (12.0-16.0) 08/15/23 16:50 Hct 40.7 % (37.0-47.0) 08/15/23 16:50 MCV 90.8 fL (80.0-100.0) 08/15/23 16:50 MCH 28.8 pg (25.0-34.0) 08/15/23 16:50 MCHC 31.7 g/dL (32.0-36.0) L 08/15/23 16:50 RDW Std Deviation 55.0 fL (36.4-46.3) H 08/15/23 16:50 RDW Coeff of Sam 16.3 % (11.5-14.5) H 08/15/23 16:50 Plt Count 228 K/uL (130-400) 08/15/23 16:50 MPV 9.4 fL (9.4-12.4) 08/15/23 16:50 Immature Gran % (Auto) 0.3 % 08/15/23 16:50 Neut % (Auto) 74.0 % 08/15/23 16:50 Lymph % (Auto) 18.5 % 08/15/23 16:50 [place] % (Auto) 6.2 % 08/15/23 16:50 Eos % (Auto) 0.5 % 08/15/23 16:50 Baso % (Auto) 0.5 % 08/15/23 16:50 Neut # (Auto) 4.32 K/uL (1.40-6.50) 08/15/23 16:50 Lymph # (Auto) 1.08 K/uL (1.20-3.40) L 08/15/23 16:50 [place] # (Auto) 0.36 K/uL (0.11-0.59) 08/15/23 16:50 Eos # (Auto) 0.03 K/uL (0.00-0.50) 08/15/23 16:50 Baso # (Auto) 0.03 K/uL (0.00-0.20) 08/15/23 16:50 Immature Gran # (Auto) 0.02 K/uL (0.01-0.20) 08/15/23 16:50 PT 10.6 Seconds (9.0-12.0) 08/15/23 16:50 INR 1.0 (0.9-1.1) 08/15/23 16:50 APTT 33 Seconds (21-31) H 08/15/23 16:50 PTT Ratio 1.2 08/15/23 16:50 Sodium 138 mmol/L (136-145) 08/15/23 16:50 Potassium 3.7 mmol/L (3.5-5.1) 08/15/23 16:50 Chloride 103 mmol/L (98-107) 08/15/23 16:50 Carbon Dioxide 27 mmol/L (21-32) 08/15/23 16:50 Anion Gap 8 (3-11) 08/15/23 16:50 BUN 21 mg/dl (6-23) 08/15/23 16:50 Creatinine 0.83 mg/dl (0.6-1.2) 08/15/23 16:50 Est Cr Clr Drug Dosing 48.7 ml/min 08/15/23 16:50 Est GFR ( Amer) 74.5 ml/min 08/15/23 16:50 Est GFR (Non-Af Amer) 64.3 ml/min 08/15/23 16:50 BUN/Creatinine Ratio 25.3 (10-20) H 08/15/23 16:50 Glucose 141 mg/dl (70-99(Fasting)) H 08/15/23 16:50 POC Glucose 165 mg/dl (70-99) H 08/15/23 16:23 Calcium 9.4 mg/dl (8.6-10.3) 08/15/23 16:50 Magnesium 1.9 mg/dl (1.7-2.4) 08/15/23 16:50 Total Bilirubin 0.8 mg/dl (0.2-1.0) 08/15/23 16:50 AST 19 U/L (13-39) 08/15/23 16:50 ALT 17 U/L (7-52) 08/15/23 16:50 Alkaline Phosphatase 62 U/L (34-104) 08/15/23 16:50 Troponin I High Sens 8.2 pg/ml (0-14) 08/15/23 16:50 Total Protein 7.4 gm/dl (6.0-8.3) 08/15/23 16:50 Albumin 4.0 gm/dl (3.4-5.0) 08/15/23 16:50 Globulin 3.4 gm/dl (2.5-4.0) 08/15/23 16:50 Albumin/Globulin Ratio 1.2 (0.9-2) 08/15/23 16:50 TSH 2.223 uIu/ml (0.300-4.500) 08/15/23 16:50 Impressions Chest X-Ray 08/15/23 16:45 XR chest 1V portable CLINICAL HISTORY: dizzy TECHNIQUE: Single frontal radiograph of the chest was obtained. Comparison: Comparison is made to chest radiograph 07/13/2023 FINDINGS: Exam is limited by underpenetration. Cardiomegaly is noted. The aortic arch is calcified. The lungs are clear. No evidence of pleural effusion or pneumothorax. IMPRESSION: No acute chest disease. ACT 112: Negative or not required by law. Electronically signed by: Aubrey Marquis M.D. 08/15/2023 5:[address] 08/15/23 16:45 CT head/brain wo con CLINICAL HISTORY: dizzy, transient blurred vision Technique: Contiguous axial CT images of the head were acquired from the base of the skull to the vertex without intravenous contrast administration. Images were viewed in brain, subdural and bone windows. Automated dose lowering techniques and/or adjustment according to patient size were utilized for this exam. Comparison: Comparison is made to CT head 06/17/2013 Findings: Areas of decreased attenuation are present in the periventricular and subcortical white matter bilaterally consistent with small vessel ischemic disease. Generalized cerebral atrophy with commensurate enlargement of the ventricles, sulci, and cisterns is also present. There is no acute intracranial hemorrhage or evidence of acute territorial infarction. No shift of the midline structures, mass effect, or extra-axial abnormalities are shown. Atherosclerotic calcifications are present in the intracranial segments of the internal carotid arteries. Imaged portions of the paranasal sinuses and mastoid air cells are clear. The orbits appear normal. There are no acute fractures of the calvaria or scalp swelling. Impression: No acute intracranial hemorrhage, no evidence of acute territorial infarction or other acute intracranial disease process. ACT 112: Negative or not required by law. Electronically signed by: Aubrey Marquis M.D. 08/15/2023 5:05 PM Medications Administered EKG as per my interpretation :Rate 85, NSR, normal axis, T wave abnormalities septal leads
[2023-08-15] MEDS ORDERED: hydrOXYzine HCl 10 MG TAB PO PRN (20:49)
[2023-08-15] MEDS ORDERED: DEXTROSE 50% 50 ML SYRINGE IV PRN (22:24)
[2023-08-15] MEDS ORDERED: GLUCOSE 40% GEL 15 GM TUBE PO PRN (22:24)
[2023-08-15] MEDS ORDERED: BENZONATATE 100 MG CAPSULE PO PRN (22:24)
[2023-08-15] MEDS ORDERED: ACETAMINOPHEN 325 MG TAB PO PRN (22:24)
[2023-08-15] MEDS ORDERED: GLUCOSE 10 TAB/TUBE PO PRN (22:24)
[2023-08-15] MEDS ORDERED: CARBOHYDRATES FOR HYPOGLYCEMIA PO PRN (22:24)
[2023-08-15] MEDS ORDERED: GLUCAGON FOR INJ 1 MG VIAL SQ PRN (22:24)
[2023-08-15] MEDS: INSULIN ASPART PER UNIT CHARGE SC SCH (23:44)
[2023-08-16] MEDS: ATORVASTATIN 20 MG TAB PO SCH ×2 (00:24→20:46)
[2023-08-16] MEDS ORDERED: lisinopril 2.5 MG TAB PO SCH (00:55)
--- OUTSIDE RECORDS SUMMARY | 2023-08-16 02:00 | External Medical Summary | Summary of Care ---
Author Name Unknown Organization [facility] Address [address] [place] [address] Phone [phone] Care Team Providers Care Splicing Machine Operator Name Role Phone Carlos Manuel Valiente MD Primary Care Provider Reason for Visit * Reason Onset Date Comments Advice 07/27/2023 Appointment 07/27/2023 Encounter Details Date Type Department Care Team (Late st Contact Info) Description 07/27/2023 Telephone Family Medicine [address] [place] [phone] Carlos Manuel Valiente MD [address] [place] [address] [place] [address] Advice; Appointment Allergies No known active allergiesdocumented as of this encounter (statuses as of 07/28/2023) Medications Medication Sig Dispensed Refills Start Date End Date Status Acetaminophen (APAP) 325 MG Tablet Take 2 Tablets by mouth every 6 hours as needed. 0 Active Aspirin Low Dose 81 MG Oral Tablet Delayed Release (aspirin enteric coated)Indications:T ype 2 diabetes mellitus with hemoglobin A1c goal of less than 7.0% (HCC),Atypical chest pain TAKE ONE TABLET BY MOUTH EVERY DAY IN THE MORNING. 100 Tablet 1 02/06/2023 Active Alendronate Sodium 70 MG Oral Tablet (Fosamax)Indications :Senile osteoporosis Take 1 Tablet by mouth once a week. 13 Tablet 3 06/26/2023 Active Atorvastatin Calcium 20 MG Oral Tablet (Lipitor)Indications :Dyslipidemia, goal LDL below 100 take one pill by mouth at bedtime 90 Tablet 1 06/26/2023 Active Diclofenac Sodium 50 MG Oral Tablet Delayed Release (Voltaren)Indication s:Primary osteoarthritis of both knees Take 1 Tablet by mouth 3 times a day as needed for Pain. Take with food. 90 Tablet 5 06/26/2023 Active Lisinopril 10 MG Oral Tablet (Prinivil)Indication s:Stage 3a chronic kidney disease (HCC),Essential hypertension with goal blood pressure less than 140/90 Take 1 Tablet by mouth in the morning. 90 Tablet 1 06/26/2023 Active Additional Information Patient taking differently: 20 mgOral Daily(AM), Reported on 07/24/2023 Pioglitazone HCl 30 MG Oral Tablet (Actos)Indications:T ype 2 DM with CKD stage 3 and hypertension (HCC) Take 1 Tablet by mouth in the morning. 90 Tablet 1 06/26/2023 Active documented as of this encounter (statuses as of 07/28/2023) Active Problems Problem Noted Date Diagnosed Date BMI 38.0-38.9,adult 11/02/2022 Overview: 204 Primary osteoarthritis of both knees 06/16/2022 Memory loss 03/17/2020 Atypical chest pain 09/05/2018 Vitamin D deficiency 05/01/2009 Overview: Vitamin D 19.4 Type 2 diabetes mellitus wit h hemoglobin A1c goal of less than 7.0% 10/27/2008 Overview: hgba1c 7.3 ICD-10 update of inactive term ADVANCE DIRECTIVE INFORMATION 12/06/2006 Overview: No, Advance Directive brochure offered , patient declined. Senile osteoporosis 01/19/2006 Overview: Lumbar T -1.5, Femur T -1.2 Family history of diabetes mellitus 09/20/2004 Myopia 09/18/2003 Full dentures 01/29/2003 SKIN HYPERTRO-ATROPH NOS 06/24/2002 Vitreous degeneration Cataract extraction status Overview: bilateral Dyslipidemia, goal LDL below 100 Benign hypertension with CKD (chronic kidney disease) stage III Type 2 diabetes mellitus wit h stage 3 chronic kidney disease, without long-term current use of insulin documented as of this encounter (statuses as of 07/28/2023) Resolved Problems Problem Noted Date Diagnosed Date Resolved Date Kidney disease, chronic, sta ge III (GFR 30-59 ml/min) 12/14/2015 12/08/2017 Overview: Per CKD protocol #1 Essential hypertension with goal blood pressure less than 140/90 04/16/2012 02/18/2021 Overview: Per HTN Protocol #27. Severe obesity with body mas s index (BMI) of 35.0 to 39.9 with serious comorbidity 11/23/2009 Overview: Per Obesity Taxonomy ICD-10 update of inactive diagnosis Kidney Dz,Chronic (GFR 60-89) Stage II 05/01/2009 03/10/2016 Other abnormal glucose 02/01/200810/28 Overview: glucose 152 Senile nuclear cataract 12/05/200703/2018 Overview: bilateral Chronic renal insufficiency 09/12/2006 11/28/2007 Overview: bun 20/cr 1.0, GFR 58.6 Kidney disease, chronic, sta ge III (GFR 30-59 ml/min) 09/12/2006 05/01/2009 Overview: 20/1.0 GFR 58.6 Elevated C-reactive protein (CRP) 09/25/2004 03/25/2019 Overview: crp 22 Metabolic syndrome 06/24/2002 1 OBESITY, UNSPECIFIED 010 Overview: Per Obesity Taxonomy LOC PRIM [id number] 03/2018 HTN, goal below 130/80 04/19 documented as of this encounter (statuses as of 07/28/2023) Immunizations Name Administration Dates Next Due COVID-19 mRNA, LNP-s, No Pre serve, 2-Dose Series ([employer]) 09/07/2021,12/17/2020,11/19/2020 Pneumococcal Conjugate Vacc, 13 Valent (Prevnar) 09/18/2017 Pneumococcal Polysaccharide PPV23 (Pneumovax) 03/08/2012 SEASONAL INFLUENZA, PF, 6 M & Above, IM , (FLULAVAL or FLUZONE) 09/05/2018,09/18/2017 Season Influenza, Quad, PF, Adjuvanted, 65+ Yrs, IM (FLUAD) 06/08/2020 Seasonal Influenza, Quadriva lent Hd (Fluzone Hd) 06/16/2022,07/01/2021 Seasonal Influenza, Split, I IV3, With Preserve, Inj 06/19/2013(Deferred: Patient Refused) Seasonal Influenza, Trivalen t, Adjuvanted, 65+ yrs 05/23/2019 TD - Tetanus/Diptheria (ADULT) 06/19/2013(Deferr ed: Patient Refused) documented as of this encounter Social History Tobacco Use Types Packs/Day Years Used Date Smoking Tobacco: Never Smokeless Tobacco: Never Alcohol Use Standard Drinks/Week Comments Not Currently 0 (1 standard drink = 0.6 oz pur e alcohol) PHQ-2 Answer Date Recorded PHQ Adult Total Score 1 11/12/2021 Sex and Gender Information Value Date Recorded Sex Assigned at Female 11/12/2021 10:35 AM EDT Gender Identity Female 11/12/2021 10:35 AM EDT Sexual Orientation Straight 11/12/2021 10 :35 AM EDT Job Start Date Occupation Industry Not on file Not on file Not on file documented as of this encounter Miscellaneous Notes * Telephone Encounter - Ashlie Irene LPN - 07/28/2023 2:38 PM EST Sonali RN calling from [facility]. Patient's daughter called [facility] to see if they received the referral. Informed Sonali of this encounter. HH referral placed on 07/24. Faxed the HH referral, signed office note, and demographics to [facility] with confirmation they were received. * Telephone Encounter - Candy Bethea OSA - 07/28/2023 2:21 PM EST Patient's daughter calling back again to check status of TE placed yesterday for patient. Reached out to the closest [facility] nurse. Asked where patient was located, informed [facility] nurse stated they did not service that area and stated it was most likely [facility] and provided number. Provided that number to patient's daughter to call and scheduled. However on the referral it does state [facility], Please follow up with Heather Ochoa, patient's daughter, to see if she was successful with scheduling with home health nurse and if that was the correct place to be scheduled with. Any advice would be great in regards to this matter. * Telephone Encounter - Michael Shoemaker OSA - 07/27/2023 12:45 PM EST Reason for patient's call: Patients daughter is calling to check on the status of her home health referral. Please call her # [phone] as her mom will not answer. documented in this encounter Plan of Treatment Upcoming Encounters Date Type Department Care Team (Late st Contact Info) Description 09/18/2023 11:00 AM EST Office Visit Otolaryngology [facility] [address] [place] [address] Whitney Salvador PA-C [address] [place] [address] 01/17/2024 9:30 AM EDT Office Visit Family Medicine [address] [place] [phone] [place] [address] Health Maintenance Due Date Last Done Comments DTaP,Tdap,and Td Vaccines (1 - Tdap) 1956 Zoster Vaccines (1 of 2) 12/03/1987 Hepatitis B (1 of 3 - Risk 3-dose series) 1997 DXA Scan 07/19/2018 07/19/2016, 03/2008, 01/19/2006 Depression Screening 11/12/2022 11/12/2021 Diabetic Foot Exam 11/12/2022 11/12/2021, 0 03/09/2020, 01/09/2019, Additional history exists COVID-19 Vaccine ( season) 2023 09/07/2021, 12/17/2020, 11/19/2020 Influenza Vaccine (FLU shot) (#1) 2023 06/16/2022, 07/01/2021, 06/08/2020, Additional history exists CKD HGB USE SMARTSET 28845 11/03/202311/02, 02/17/2021, 02/17/2021, Additional history exists CKD PHOS USE SMARTSET 63763 11/03/20230 03/2023, 02/17/2021, 05/08/2018, Additional history exists HbA1c 12/26/2023 06/26/2023, 0 03/2023, 06/16/2022, Additional history exists Albumin/Creatinine Ratio 06/26/202406/26/ 023, 06/17/2022, 02/18/2021, Additional history exists Diabetic Eye Exam 06/26/2024 06/26/2023, , 09/25/2020, Additional history exists Pneumococcal Vaccine: 65+ Years Completed 09/18/2017, 03/08/2012, 06/24/2002 VITAMIN D LEVEL ONCE IN A LIFETIME-USE SMARTSET# [id number] Completed 05/08/2018, 09/18/2017, 05/28/2010, Additional history exists GARDASIL-HPV IMMUNIZATION SERIES Aged Out No longer eligible based on patient's age to complete this topic MENINGOCOCCAL (MENACTRA/MENVEO) Aged Out No longer eligible based on patient's age to complete this topic documented as of this encounter Medical Devices Implanted Type Area Side Laster Staple Device Identifier Shelf Expiration Date Model / Serial / Lot Clip Quick 2.8mm 230cm - [id number] Implanted:Qty: 4 on 03/24/2021 by Mert Velasco MD at ENDOSCOPY [facility] [employer] [facility] 10/26/2023 [id number] / / documented as of this encounter Care Teams Splicing Machine Operator Relationship Specialty Start Date End Date Carlos Manuel Valiente MD [address] [place] [address] [place] [phone] PCP - General 04/11/1996 documented as of this encounter
--- OUTSIDE RECORDS SUMMARY | 2023-08-16 02:00 | External Medical Summary | Summary of Care ---
Author Name Unknown Organization [facility] Address [address] [place] [address] Phone [phone] Care Team Providers Care Steam Shovel Engineer Name Role Phone Carlos Manuel Valiente MD Primary Care Provider [phone] Reason for Referral * Evaluate & Treat - Unlimited Visits (Within 10 days (routine)) - Authorized Specialty Diagnoses / Procedures Referred By Yara pitts Referred To Contact HOME CARE / Home Care Diagnoses Type 2 diabetes mellitus with stage 3a chronic kidney disease, without long-term current use of insulin ([facility]) Zhanna Stock PA-C [address] [place] [address] [place] [id number] Referral ID Status Reason Start Date Expiration Date Visits Requested Visits Authorized [id number] Authorized Specialty Services Required 3 999 999 Question Answer Referral Priority Within 10 days (routine) Where should this appointment be scheduled? [facility] Comments Documentation of Qhev-xh-Qwif Encounter Addendum Patient Name: Evi Lewis I certify that this patient is under my care and that I, or a nurse practitioner or physician's delivery assistant working with me, had a ekkm-si-fama encounter that meets the physician pfxo-wr-ozyh encounter requirements with this patient on: 07/24/23 The encounter with the patient was in whole, or in part, for the following medical condition, which is the primary reason for home health care (List medical condition): ADL dysfunction I certify that, based on my findings, the following services are medically necessary home health services: Nursing To provide the following care/treatments: (All hospitalists not following the patient after discharge should complete this section): nursing Primary Care Physician to follow home care plan of care after discharge: Dr. Mao My clinical findings support the need for the above services because: ADL dysfunction Further, I certify that my clinical findings support that this patient is homebound (i.e. Absences from home require considerable and taxing effort and are for medical reasons or hoahaoism services or infrequently or of short duration when for other reason) because: ADL dysfunction Physician Signature: Date of Signature: Physician Printed Name: Mamta Rivas LPN Reason for Visit * Reason Comments Hospital Follow-Up Pt states feeling "s haky in the mornings". Pt thinks she's taking lisinopril 20 mg now, was on 10 mg (did not bring a list/does not know what she's taking other than that). Encounter Details Date Type Department Care Team (Late st Contact Info) Description 07/24/2023 11:00 AM EST Office Visit Family Medicine [address] [place] [phone] Zhanna Stock PA-C [address] [place] [address] [place] [phone] COVID-19*; Type 2 diabetes mellitus with stage 3a chronic kidney disease, without long-term current use of insulin (HCC) Allergies No known active allergiesdocumented as of this encounter (statuses as of 07/24/2023) Medications Medication Sig Dispensed Refills Start Date [...] as of this encounter (statuses as of 07/24/2023) Active Problems Problem Noted Date Diagnosed Date [...] as of this encounter (statuses as of 07/24/2023) Resolved Problems Problem Noted Date Diagnosed Date [...] 03/25/2019 Overview: crp 22 Metabolic syndrome 06/24/2002 OBESITY, UNSPECIFIED 010 Overview: Per Obesity Taxonomy LOC PRIM [id number] 03/2018 HTN, goal below 130/80 04/19 documented as of this encounter (statuses as of 07/24/2023) Immunizations Name Administration Dates Next Due COVID-19 mRNA, LNP-s, No Pre serve, 2-Dose Series ([employer] 09/07/2021,12/17/2020,11/19/2020 Pneumococcal Conjugate Vacc, 13 Valent (Prevnar) [...] on file documented as of this encounter Last Filed Vital Signs Vital Sign Reading Time Taken Comments Blood Pressure 132/82 07/24/2023 10:42 AM EST Pulse 120 07/24/2023 10:42 AM EST Temperature 36.5 C (97.7 F) 07/24/2023 10:[address] Respiratory Rate - - Oxygen Saturation 96% 07/24/2023 10:42 AM EST Inhaled Oxygen Concentration - - Weight 89.6 kg (197 lb 9.6 oz) 07/24/2023 10:42 AM EST Height - - Body Mass Index 37.34 01/10/2023 1:00 PM EDT documented in this encounter Progress Notes * Zhanna Stock PA-C - 07/24/2023 10:47 AM EST Chief Complaint Patient presents with Hospital Follow-Up Pt states feeling "shaky in the mornings". Pt thinks she's taking lisinopril 20 mg now, was on 10 mg (did not bring a list/does not know what she's taking other than that). Pt here today for hospital FU. Pt was diagnosed with covid, at ER, on 07/10. She was sent home withfortino restrepo. She was doing ok and then she went back to ER on 07/13/23. She was admitted with pneumonia and dc'd on 07/18/23. Pt is doing well. She doesn't have anymore coughing. Pt states that she does feel shaky in the am but this does clear. Pt denies chest pain, SOB, fever, chills, URI sx. L isinopril was increased to 20 mg daily. Pt also wants home health ref. This was mentioned at the hospital but it isn't in the notes. She does live by herself. Review of patient's allergies indicates: No Known Allergies Current Outpatient Medications Medication Sig Dispense Refill Acetaminophen (APAP) 325 MG Tablet Take 2 Tablets by mouth every 6 hours as needed. Aspirin Low Dose 81 MG Oral Tablet Delayed Release (aspirin enteric coated) TAKE ONE TABLET BY MOUTH EVERY DAY IN THE MORNING. 100 Tablet 1 Alendronate Sodium 70 MG Oral Tablet (Fosamax) Take 1 Tablet by mouth once a week. 13 Tablet 3 Atorvastatin Calcium 20 MG Oral Tablet (Lipitor) take one pill by mouth at bedtime 90 Tablet 1 Diclofenac Sodium 50 MG Oral Tablet Delayed Release (Voltaren) Take 1 Tablet by mouth 3 times a dayas needed for Pain. Take with food. 90 Tablet 5 Lisinopril 10 MG Oral Tablet (Prinivil) Take 1 Tablet by mouth in the morning. (Patient taking differently: Take 2 Tablets by mouth in the morning.) 90 Tablet 1 Pioglitazone HCl 30 MG Oral Tablet (Actos) Take 1 Tablet by mouth in the morning. 90 Tablet 1 No current facility-administered medications for this visit. Past Medical History: Diagnosis Date Acute cystitis 06/11/2013 >100,000 col Citrobacter Freundi resistant to Keflex Acute cystitis 06/17/2013 >100,000 lactobacillus sensitive to nitrofurantoin Acute cystitis 06/11/2015 admitted [facility] Anatomical narrow angle Atypical chest pain 09/02/2018 [facility] Bacterial gastroenteritis 09/25/2015 Aeromonas hydrophila, pansensitive Benign hypertension with CKD (chronic kidney disease) stage III ([facility]) BMI 36.0-36.9,adult Cataract extraction status bilateral Colitis 01/14/2021 rectal bleeding [facility], home on Augmentin Cystitis 11/25/2016 pansensitive E coli DENTURES 01/29/2003 DM type 2, goal A1c below 7 10/27/2008 hgba1c 7.3 Dyslipidemia, goal LDL below 100 Elevated C-reactive protein (CRP) 09/25/2004 crp 22 Essential hypertension with goal blood pressure less than 140/90 Family history of diabetes mellitus Headache(784.0) 01/05/[address] Mcqueen, CT negative Hypertrophic and atrophic condition of skin Hypertrophic and atrophic condition of skin Kidney disease, chronic, stage III (GFR 30-59 ml/min) ([facility]) 09/12/2006 20/1.0 GFR 58.6 Metabolic syndrome 06/24/2002 insulin level 25 Metabolic syndrome 09/25/2004 insulin 46.5 Myopia 09/18/2003 Obesity, BMI not known 11/07/1986 180 pounds Other abnormal glucose 02/01/2008 glucose 152 Primary localized osteoarthrosis, lower leg [facility]atica [facility] Senile nuclear cataract 12/05/2007 bilateral Senile nuclear cataract Senile osteoporosis 01/19/2006 Lumbar T -1.5, Femur T -1.2 Squamous blepharitis Vitamin D deficiency 05/01/2009 Vitamin D 19.4 Vitreous degeneration Social History Socioeconomic History Marital status: Spouse name: Not on file Number of children: Not on file Years of education: Not on file Highest education level: Not on file Occupational History Not on file Tobacco Use Smoking status: Never Smokeless tobacco: Never Vaping Use Vaping Use: Never used Substance and Sexual Activity Alcohol use: Not Currently Drug use: No Sexual activity: Yes Partners: Male control/protection: Surgical Other Topics Concern Not on file Social History Narrative Social Determinants of Health Financial Resource Strain: Not on file Food Insecurity: Not on file Transportation Needs: Not on file Physical Activity: Not on file Stress: Not on file Social Connections: Not on file Intimate Partner Violence: Not on file Housing Stability: Not on file O:Blood pressure 132/82, pulse 120, temperature 36.5 C (97.7 F), weight 89.6 kg (197 lb 9.6 oz), SpO2 96%. GENERAL: alert, healthy, and no distress HEART: regular rate & rhythm, no murmur, and no gallops LUNGS: chest symmetric with normal AP diameter, no chest deformities noted, no chest wall tenderness, lungs clear to auscultation A:COVID-19 (Primary) Type 2 diabetes mellitus with stage 3a chronic kidney disease, without long-term current use of insulin (HCC) - HOME HEALTH REFERRAL OP - COMPREHENSIVE METABOLIC PANEL; Future; Expected date: 07/24/2023 Home health ref placed. Will check some labs. Any questions/problems, please call. If anything changes, worsens, develops new sx, please call PAULA. Repeat CT of chest in 6 months. Has appt with new PCP in 6 months and will discuss this with her, then. Follow Up: Return if symptoms worsen or fail to improve. Zhanna Stock PA-C documented in this encounter Plan of Treatment Upcoming Encounters Date Type Department Care Team (Late st Contact Info) Description 07/24/2023 11:40 AM EST Laboratory Laboratory [address] [place] [phone] [place] [address] Type 2 diabetes mellitus with stage 3a chronic kidney disease, without long-term current use of insulin (HCC) 09/18/2023 11:00 AM EST Office Visit Otolaryngology [facility] [address] [facility] [place] [address] Whitney Salvador PA-C [address] [place] [address] 01/17/2024 9:30 AM EDT Office Visit Family Medicine [address] [place] [phone] Arabella [address] [place] [address] Pending Results Name Type Priority Associated Diagnoses Date /Time COMPREHENSIVE METABOLIC PANEL Lab Routine Type 2 diabetes mellitus with stage 3a chronic kidney disease, without long-term current use of insulin (HCC) 07/24/2023 11:09 AM EST Scheduled Orders Name Type Priority Associated Diagnoses Orde r Schedule COMPREHENSIVE METABOLIC PANEL Lab Routine Type 2 diabetes mellitus with stage 3a chronic kidney disease, without long-term current use of insulin (HCC) Expected: 07/24/2023 (Approximate), Expires: 07/23/2024 Scheduled Referrals Name Type Priority Associated Diagnoses Orde r Schedule HOME HEALTH REFERRAL OP Referral Within 10 days (routine) Type 2 diabetes mellitus with stage 3a chronic kidney disease, without long-term current use of insulin (HCC) Ordered: 07/24/2023 Health Maintenance Due Date Last Done Comments DTaP,Tdap,and Td Vaccines (1 - Tdap) 1954 Zoster Vaccines (1 of 2) 12/03/1987 Hepatitis B (1 of 3 - Risk 3-dose series) 1997 DXA Scan 07/19/2018 07/19/2016, 07/0 03/2008, 01/19/2006 Depression Screening 11/12/2022 11/12/2021 Diabetic Foot Exam 11/12/2022 11/12/2021, 0 03/09/2020, 01/09/2019, Additional history exists COVID-19 Vaccine ( season) 2023 09/07/2021, 12/17/2020, 11/19/2020 Influenza Vaccine (FLU shot) (#1) 2023 06/16/2022, 07/01/2021, 06/08/2020, Additional history exists CKD HGB USE SMARTSET 94016 11/03/202311/02, 02/17/2021, 02/17/2021, Additional history exists CKD PHOS USE SMARTSET 41803 11/03/2023 03/0 03/2023, 02/17/2021, 05/08/2018, Additional history exists HbA1c 12/26/2023 06/26/2023, 03/0 03/2023, 06/16/2022, Additional history exists Albumin/Creatinine Ratio 06/26/2024 023, 06/17/2022, 02/18/2021, Additional history exists Diabetic Eye Exam 06/26/2024 06/26/2023, , 09/25/2020, Additional history exists Pneumococcal Vaccine: 65+ Years Completed 09/18/2017, 03/08/2012, 06/24/2002 VITAMIN D LEVEL ONCE IN A LIFETIME-USE SMARTSET# [id number] Completed 05/08/2018, 09/18/2017, 05/28/2010, Additional history exists GARDASIL-HPV IMMUNIZATION SERIES Aged Out No longer eligible based on patient's age to complete this topic MENINGOCOCCAL (MENACTRA/MENVEO) Aged Out No longer eligible based on patient's age to complete this topic documented as of this encounter Medical Devices Implanted Type Area Animal Taxonomist Device Identifier Shelf Expiration Date Model / Serial / Lot Clip Quick 2.8mm 230cm - [id number] Implanted:Qty: 4 on 03/24/2021 by Mert Velasco MD at [facility] [employer] [facility] 10/26/2023 [id number] / documented as of this encounter Visit Diagnoses Diagnosis COVID-19- Primary Type 2 diabetes mellitus with stage 3a chronic kidney disease, without long-term current use of insulin (HCC) Type 2 diabetes mellitus with stage 3a chronic kidney disease, without long-term current use of insulin (HCC) documented in this encounter Care Teams Steam Shovel Engineer Relationship Specialty Start Date End Date Carlos Manuel Valiente MD [address] [place] [address] [place] [address] PCP - General 04/11/1996 documented as of this encounter
--- OUTSIDE RECORDS SUMMARY | 2023-08-16 02:00 | External Medical Summary ---
Author Name Unknown Address Unknown Organization [id number]:[facility] - [address] [facility] [place] [address] Laboratory Report Ordering Provider Test Date Status MIKO CEJA 07/24/2023 11:09:20 Final Observation Date Value Abnormality Reference (Units ) Status BUN 07/24/2023 11:09:20 17 6-20 (mg/dL) Final Creatinine 07/24/2023 11:09:20 0.8 0.5-1.0 (mg/dL) Final Glomerular filtration rate/1.73 sq M.predicted [Volume Rate/Area] in Serum, Plasma or Blood by Creatinine-based formula (CKD-EPI) 07/24/2023 11:09:20 71 >=60 (mL/min) Final eGFR is calculated based on the CKD-EPI 2020 equation SODIUM 07/24/2023 11:09:20 139 135-146 (m mol/L) Final Potassium 07/24/2023 11:09:20 4.1 3.5-5.1 (m mol/L) Final Cl 07/24/2023 11:09:20 102 98-107 (mm ol/L) Final CO2 07/24/2023 11:09:20 26 22-32 (mmo l/L) Final Anion gap 07/24/2023 11:09:20 11 7-15 (mmol /L) Final Glucose 07/24/2023 11:09:20 124 Above high normal 70 -120 (mg/dL) Final Albumin 07/24/2023 11:09:20 3.7 Below low normal 3.8 -5.0 (g/dL) Final AST (Aspartate aminotransferase) 07/24/2023 11:09:20 24 10-35 (U/L) Fin al Alk Phos 07/24/2023 11:09:20 58 35-130 (U/ L) Final Bilirubin, Total 07/24/2023 11:09:20 0.8 <=1 .2 (mg/dL) Final Calcium 07/24/2023 11:09:20 9.3 8.4-10.2 ( mg/dL) Final Protein 07/24/2023 11:09:20 6.3 6.0-8.3 (g /dL) Final ALT (Alanine aminotransferase) 07/24/2023 11:09:20 24 10-35 (U/L) Praveen thayer Performing Location [facility] - [facility] [address] Charity Menjivar. [facility] [id number]
--- OUTSIDE RECORDS SUMMARY | 2023-08-16 02:00 | External Medical Summary | Summary of Care ---
Author Name Unknown Organization [facility] Address [address] [place] [address] Phone [phone] Care Team Providers Care Radio Frequency Design Engineer Name Role Phone Carlos Manuel Valiente MD Primary Care Provider Reason for Visit * Reason Onset Date Comments Referral 07/19/2023 Home Health Nurs e Encounter Details Date Type Department Care Team (Late st Contact Info) Description 07/19/2023 Telephone Family Medicine [address] [place] [address] Carlos Manuel Valiente MD [address] [place] [address] [place] [address] Referral (Home Health Nurse) Allergies No known active allergiesdocumented as of this encounter (statuses as of 07/19/2023) Medications Medication Sig Dispensed Refills Start Date End Date Status Acetaminophen (APAP) 325 MG Tablet Take 2 Tablets by mouth every 6 hours as needed. 0 Active Aspirin Low Dose 81 MG Oral Tablet Delayed Release (aspirin enteric coated)Indications:Typ e 2 diabetes mellitus with hemoglobin A1c goal of less than 7.0% (HCC),Atypical chest pain TAKE ONE TABLET BY MOUTH EVERY DAY IN THE MORNING. 100 Tablet 1 02/06/2023 Active Alendronate Sodium 70 MG Oral Tablet (Fosamax)Indications:S enile osteoporosis Take 1 Tablet by mouth once a week. 13 Tablet 3 06/26/2023 Active Atorvastatin Calcium 20 MG Oral Tablet (Lipitor)Indications:D yslipidemia, goal LDL below 100 take one pill by mouth at bedtime 90 Tablet 1 06/26/2023 Active Diclofenac Sodium 50 MG Oral Tablet Delayed Release (Voltaren)Indications: Primary osteoarthritis of both knees Take 1 Tablet by mouth 3 times a day as needed for Pain. Take with food. 90 Tablet 5 06/26/2023 Active Lisinopril 10 MG Oral Tablet (Prinivil)Indications: Stage 3a chronic kidney disease (HCC),Essential hypertension with goal blood pressure less than 140/90 Take 1 Tablet by mouth in the morning. 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 90 Tablet 1 06/26/2023 Active documented as of this encounter (statuses as of 07/19/2023) Active Problems Problem Noted Date Diagnosed Date [...] as of this encounter (statuses as of 07/19/2023) Resolved Problems Problem Noted Date Diagnosed Date [...] 010 Overview: Per Obesity Taxonomy LOC PRIM [id number] 03/2018 HTN, goal below 130/80 04/19 documented as of this encounter (statuses as of 07/19/2023) Immunizations Name Administration Dates Next Due COVID-19 mRNA, LNP-s, No Pre serve, 2-Dose Series ([employer]) 09/07/2021,12/17/2020,11/19/2020 Pneumococcal Conjugate Vacc, 13 Valent (Prevnar) [...] encounter Miscellaneous Notes * Telephone Encounter - Nancy Newsome RN - 07/19/2023 1:52 PM EST Will have to wait until office visit on 07/24/23, OV is required per insurance for referrals * Telephone Encounter - Monique Satnana OSA - 07/19/2023 9:42 AM EST Has the patient been seen for this problem? (Y/N)?: Y If No, an appt needs to be scheduled before a referral will be placed (exception: proceed with referral request if referral request is for a yearly routine appointment with speciality) Patient Name: Evi Lewis Patient Primary care provider: Carlos Manuel Valiente MD Does this need to be an insurance referral (Y/N)?: Not sure If Yes, does the insurance referral need to be placed into the [employer] system? Name of preferred specialist: Type of specialist: Home Health Nurse Location of specialist: Specialist's Phone #: Specialist's Fax #: Reason for visit: Discharged from [facility]. Was in for 5 days from COVID Date of visit: documented in this encounter Plan of Treatment Upcoming Encounters Date Type Department Care Team (Late st Contact Info) Description 07/24/2023 11:00 AM EST Office Visit Family Medicine [address] [phone] Zhanna Stock PA-C [address] [place] [address] [place] [address] 09/18/2023 11:00 AM EST Office [facility] [place] [address] Whitney Salvador PA-C [address] [place] [address] 01/17/2024 9:30 AM EDT Office Visit Family Medicine [address] [place] [phone] Arabella Mao DO [address] [place] [address] [place] [address] Health Maintenance Due Date Last Done Comments [...] Additional history exists CKD HGB USE SMARTSET 77297 11/03/202311/02, 02/17/2021, 02/17/2021, Additional history exists CKD PHOS USE SMARTSET 90197 11/03/2023 03/0 03/2023, 02/17/2021, 05/08/2018, Additional history exists HbA1c 12/26/2023 06/26/2023, 03/0 03/2023, 06/16/2022, Additional history exists Albumin/Creatinine Ratio 06/26/2024 023, 06/17/2022, 02/18/2021, Additional history exists Diabetic Eye Exam 06/26/2024 06/26/2023, , 09/25/2020, Additional history exists Pneumococcal Vaccine: 65+ Years Completed 09/18/2017, 03/08/2012, 06/24/2002 VITAMIN D LEVEL ONCE IN A LIFETIME-USE SMARTSET# [id number] Completed 05/08/2018, 09/18/2017, 05/28/2010, Additional history exists GARDASIL-HPV IMMUNIZATION SERIES Aged Out No longer eligible based on patient's age to complete this topic MENINGOCOCCAL (MENACTRA/MENVEO) Aged Out No longer eligible based on patient's age to complete this topic documented as of this encounter Medical Devices Implanted Type Area Window Installation Subcontractor Device Identifier Shelf Expiration Date Model / Serial / Lot Clip Quick 2.8mm 230cm - [id number] Implanted:Qty: 4 on 03/24/2021 by Mert Velasco MD at ENDOSCOPY [facility] [employer] 10/26/2023 [id number] / / documented as of this encounter Care Teams Radio Frequency Design Engineer Relationship Specialty Start Date End Date Carlos Manuel Valiente MD [address] [place] [address] [place] [id number] PCP - General 04/11/1996 documented as of this encounter
--- OUTSIDE RECORDS SUMMARY | 2023-08-16 02:00 | External Medical Summary | Summary of Care ---
Author Name Unknown Organization [facility] Address [address] [place] [address] Phone [phone] Care Team Providers Care Fitness And Wellness Director Name Role Phone Carlos Manuel Valiente MD Primary Care Provider Reason for Visit * Reason Comments Outpatient Testing Encounter Details Date Type Department Care Team (Late st Contact Info) Description 07/24/2023 11:40 AM EST Laboratory Laboratory [address] [place] [phone] [place] [address] Type 2 diabetes mellitus with stage 3a chronic kidney disease, without long-term current use of insulin ([facility]) Allergies No known active allergiesdocumented as of [...] hemoglobin A1c goal of less than 7.0% ([facility]),Atypical chest pain TAKE ONE TABLET BY MOUTH [...] 010 Overview: Per Obesity Taxonomy LOC PRIM [id number] 03/2018 HTN, goal below 130/80 04/19 documented as of this encounter (statuses as of 07/24/2023) Immunizations Name Administration Dates Next Due COVID-19 mRNA, LNP-s, No Pre serve, 2-Dose Series ([employer]) 09/07/2021,12/17/2020,11/19/2020 Pneumococcal Conjugate Vacc, 13 Valent (Prevnar) [...] on file documented as of this encounter Plan of Treatment Upcoming Encounters Date Type Department Care Team (Late st Contact Info) Description 09/18/2023 11:00 AM EST Office Visit Otolaryngology [facility] [address] [place] [address] Whitney Salvador PA-C [address] [place] [address] 01/17/2024 9:30 AM EDT Office Visit Family Medicine [address] [place] [phone] Arabella Mao [address] [place] [address] Pending Results Name Type Priority Associated Diagnoses Date /Time COMPREHENSIVE METABOLIC PANEL Lab Routine Type 2 diabetes mellitus with stage 3a chronic kidney disease, without long-term current use of insulin (HCC) 07/24/2023 11:09 AM EST Health Maintenance Due Date Last Done Comments [...] Additional history exists CKD HGB USE SMARTSET 09060 11/03/202311/02, 02/17/2021, 02/17/2021, Additional history exists CKD PHOS USE SMARTSET 48927 11/03/2023 03/0 03/2023, 02/17/2021, 05/08/2018, Additional history exists HbA1c 12/26/2023 06/26/2023, 03/0 03/2023, 06/16/2022, Additional history exists Albumin/Creatinine Ratio 06/26/202406/26/ 023, 06/17/2022, 02/18/2021, Additional history exists Diabetic Eye Exam 06/26/2024 06/26/2023, , 09/25/2020, Additional history exists Pneumococcal Vaccine: 65+ Years Completed 09/18/2017, 03/08/2012, 06/24/2002 VITAMIN D LEVEL ONCE IN A LIFETIME-USE SMARTSET# [id number] Completed 05/08/2018, 09/18/2017, 05/28/2010, Additional history exists GARDASIL-HPV IMMUNIZATION SERIES Aged Out No longer eligible based on patient's age to complete this topic MENINGOCOCCAL (MENACTRA/MENVEO) Aged Out No longer eligible based on patient's age to complete this topic documented as of this encounter Medical Devices Implanted Type Area Rd Lab Technician Device Identifier Shelf Expiration Date Model / Serial / Lot Clip Quick 2.8mm 230cm - [id number] Implanted:Qty: 4 on 03/24/2021 by Mert Velasco MD at ENDOSCOPY [facility] [employer] [facility] 10/26/2023 [id number] / / documented as of this encounter Visit Diagnoses Diagnosis Type 2 diabetes mellitus with stage 3a chronic kidney disease, without long-term current use of insulin (HCC) documented in this encounter Care Teams Fitness And Wellness Director Relationship Specialty Start Date End Date Carlos Manuel Valiente MD [address] [place] [address] [place] [address] PCP - General 04/11/1996 documented as of this encounter
--- OUTSIDE RECORDS SUMMARY | 2023-08-16 02:00 | External Medical Summary | Summary of Care ---
Author Name Unknown Organization [facility] Address [address] [place] [address] Phone [phone] Care Team Providers Care Offset Assistant Press Operator Name Role Phone Carlos Manuel Valiente MD Primary Care Provider Reason for Visit * Reason Onset Date Comments Medication Refill 08/07/2023 Encounter Details Date Type Department Care Team (Late st Contact Info) Description 08/07/2023 Refill Family Medicine [address] [place] [address] Carlos Manuel Valiente MD [address] [place] [address] [place] [address] Allergies No known active allergiesdocumented as of this encounter (statuses as of 08/07/2023) Medications Medication Sig Dispensed Refills Start Date [...] as of this encounter (statuses as of 08/07/2023) Active Problems Problem Noted Date Diagnosed Date [...] as of this encounter (statuses as of 08/07/2023) Resolved Problems Problem Noted Date Diagnosed Date [...] 010 Overview: Per Obesity Taxonomy LOC PRIM [id number] 03/2018 HTN, goal below 130/80 04/19 documented as of this encounter (statuses as of 08/07/2023) Immunizations Name Administration Dates Next Due COVID-19 mRNA, LNP-s, No Pre serve, 2-Dose Series ([employer]) 09/07/2021,12/17/2020,11/19/2020 Pneumococcal Conjugate Vacc, 13 Valent (Prevnar) [...] encounter Miscellaneous Notes * Telephone Encounter - Batsheva Person CPhT - 08/07/2023 1:23 PM EST Pt calling to request Lisinopril. Informed pt that RX is available at their pharmacy. Pt verbalizedunderstanding and stated they will check with their pharmacy regarding this medication. Thank you, Batsheva Person CPhT Pawn Shop Keeper [facility]formerly telepharmacy) 08/07/2023,1:24 PM documented in this encounter Plan of Treatment Upcoming Encounters Date Type Department Care Team (Late st Contact Info) Description 09/18/2023 11:00 AM EST Office Visit [facility]ol[facility]ology [facility] [address] [place] [address] Whitney Salvador PA-C [address] [place] [address] 01/17/2024 9:30 AM EDT Office Visit Family Medicine [address] [place] [phone] Arabella [address] [place] [address] Health Maintenance Due Date Last Done Comments [...] Additional history exists CKD HGB USE SMARTSET 92043 11/03/202311/02, 02/17/2021, 02/17/2021, Additional history exists CKD PHOS USE SMARTSET 42028 11/03/2023 03/0 03/2023, 02/17/2021, 05/08/2018, Additional history exists HbA1c 12/26/2023 06/26/2023, 03/0 03/2023, 06/16/2022, Additional history exists Albumin/Creatinine Ratio 06/26/202406/26/ 023, 06/17/2022, 02/18/2021, Additional history exists Diabetic Eye Exam 06/26/2024 06/26/2023, , 09/25/2020, Additional history exists Pneumococcal Vaccine: 65+ Years Completed 09/18/2017, 03/08/2012, 06/24/2002 VITAMIN D LEVEL ONCE IN A LIFETIME-USE SMARTSET# [id number] Completed 05/08/2018, 09/18/2017, 05/28/2010, Additional history exists GARDASIL-HPV IMMUNIZATION SERIES Aged Out No longer eligible based on patient's age to complete this topic MENINGOCOCCAL (MENACTRA/MENVEO) Aged Out No longer eligible based on patient's age to complete this topic documented as of this encounter Medical Devices Implanted Type Area Test Technician Device Identifier Shelf Expiration Date Model / Serial / Lot Clip Quick 2.8mm 230cm - [id number] Implanted:Qty: 4 on 03/24/2021 by Mert Velasco MD at ENDOSCOPY [facility] [employer] 10/26/2023 [id number] / / documented as of this encounter Care Teams Offset Assistant Press Operator Relationship Specialty Start Date End Date Carlos Manuel Valiente MD [address] [place] [address] [place] [address] PCP - General 04/11/1996 documented as of this encounter
[2023-08-16 05:55] LABS: Appearance Urine Clear (Clear); Bilirubin Urine Negative (Negative); Blood Urine Negative (Negative); Color Urine Yellow; Glucose Urine UA Negative (Negative); Ketones Urine Negative (Negative); Leukocyte Esterase Urine Negative (Negative); Nitrite Urine Negative (Negative); Protein Urine Negative (Negative); Specific Gravity Urine 1.011 (1.000-1.030); Urobilinogen Urine Negative (Negative); pH Urine 5.5 (4.5-7.5)
[2023-08-16 07:34] LABS: Basophils # (auto) 0.03 K/uL (0.00-0.20); Basophils % (auto) 0.6 %; Eosinophils # (auto) 0.04 K/uL (0.00-0.50); Eosinophils % (auto) 0.8 %; Hematocrit (blood only) 32.2 % (37.0-47.0); Hemoglobin 10.4 g/dl (12.0-16.0); Immature Granulocytes # (auto) 0.02 K/uL (0.01-0.20); Immature Granulocytes % (auto) 0.4 %; Lymphocytes # (auto) 1.43 K/uL (1.20-3.40); Lymphocytes % (auto) 29.7 %; Mean Corpuscular Hemoglobin 28.7 pg (25.0-34.0); Mean Corpuscular Hgb Conc 32.3 g/dL (32.0-36.0); Monocytes # (auto) 0.38 K/uL (0.11-0.59); Monocytes % (auto) 7.9 %; Neutrophils # (auto) 2.91 K/uL (1.40-6.50); Neutrophils % (auto) 60.6 %; Platelet Count 157 K/uL (130-400); RDW Coefficient of Variation 16.3 % (11.5-14.5); RDW Standard Deviation 53.2 fL (36.4-46.3); Red Blood Count 3.62 M/uL (4.20-5.40); White Blood Count 4.81 K/ul (4.8-10.8)
[2023-08-16 07:57] LABS: BUN Creatinine Ratio 22.9 (10-20); Calcium 8.4 mg/dl (8.6-10.3); Creatinine Clr Calc Pharmacy 53.3 ml/min; Est GFR (African American) 91.6 ml/min; Potassium 3.8 mmol/L (3.5-5.1)
[2023-08-16] MEDS ORDERED: ATORVASTATIN 20 MG TAB PO SCH (09:00)
[2023-08-16] MEDS: INSULIN ASPART PER UNIT CHARGE SC SCH ×4 (09:46→20:53)
[2023-08-16] MEDS: lisinopril 10 MG TAB PO SCH (10:28)
[2023-08-16] MEDS: ASPIRIN 81 MG ECTAB PO SCH (10:59)
--- NOTE | 2023-08-16 14:37 | Hospitalist Progress Note ---
Date of Service August 16, 2023 Assessment & Plan (1) Dizziness: Plan: With intermittent blurred vision-Outpatient Ophthalmology eval Rule out orthostasis given association with standing up-no significant orthostasis found Strongly advised to drink more fluid Will continue with PT and OT Uncontrolled hypertension (possible noncompliance) and anxiety possibly contributory Blood pressure seems to well-controlled Has been around 128/68 this morning on 08/16/2023 Hyperlipidemia on statin therapy DM 2, on oral meds, Well controlled as of recent outpatient hemoglobin A1c of 6 last May 2023 Basal insulin, ISS BG goal 1 10-1 40, carb count coverage Blood sugar seems to be stable Possible functional disability Will need to have more PT and OT evaluation Chronic thrombocytopenia Platelet count has been normalized DVT prophylaxis. SCDs Re: Thrombocytopenia Will start subcu Lovenox Full code Patient requests for her daughter to be updated of plan of care. Ms. Heather Bermudez, contact #[phone]. Admission and Anticipated Discharge Date Admission Date: August 15, 2023 Subjective 08/16/2023 The patient was seen and examined in medical telemetry unit She was admitted with dizziness especially with ambulation and headache Has been feeling much better and will have formal physical therapy evaluation Denies any more headache and the visual symptoms are almost gone Remains generally weak Review of Systems Review of Systems: All systems reviewed and are unremarkable except as noted below Physical Exam Physical Exam: Lying in bed comfortably Constitutional: well developed, well nourished, + ill appearing and + obese Eyes: PERRL, conjunctivae normal, anicteric sclerae ENMT: external ear and nose normal, oropharynx normal Neck: trachea midline, no thyromegaly Respiratory: no respiratory distress Auscultation: lungs clear to auscultation bilaterally Cardiovascular: Rate/Rhythm: regular rate and regular rhythm; not tachycardic Heart Sounds: normal S1 and normal S2; no murmur Extremities: + edema (Trace edema bilaterally) Gastrointestinal (Abdomen): Inspection/Auscultation: normal bowel sounds; abdomen not distended Percussion/Palpation: abdomen soft; abdomen nontender Musculoskeletal: No acute arthritis involving any of the joint Neurologic: normal touch/pain/proprioception and moves all extremities; no focal motor deficits Lymphatic: no cervical or axillary lymphadenopathy Results & Data Results & Data Vital Signs (Past 12 Hours) Vital Signs Temp Pulse Pulse Pulse Resp BP BP 08/16/23 11:32 36.8 C 76 14 128/68 08/16/23 08:01 36.7 C 92 H 16 147/79 H 08/16/23 07:50 08/16/23 07:00 99 H 08/16/23 03:53 37.0 C 87 16 138/69 Pulse Ox O2 Del Method 08/16/23 11:32 96 Room Air 08/16/23 08:01 97 Room Air 08/16/23 07:50 Room Air 08/16/23 07:00 08/16/23 03:53 97 Room Air Laboratory Results Short CBC 08/15/23 08/16/23 Range/Units 16:50 07:11 WBC 5.84 4.81 (4.8-10.8) K/ul Hgb 12.9 10.4 L (12.0-16.0) g/dl Hct 40.7 32.2 L (37.0-47.0) % Plt Count 228 157 (130-400) K/uL BMP 08/15/23 08/16/23 16:50 07:11 Sodium 138 139 Potassium 3.7 3.8 Chloride 103 108 H Carbon Dioxide 27 27 BUN 21 16 Creatinine 0.83 0.70 Glucose 141 H 107 H Calcium 9.4 8.4 L Liver Function 08/15/23 Range/Units 16:50 Total Bilirubin 0.8 (0.2-1.0) mg/dl AST 19 (13-39) U/L ALT 17 (7-52) U/L Alkaline Phosphatase 62 (34-104) U/L Albumin 4.0 (3.4-5.0) gm/dl Urine 08/16/23 Range/Units Unknown Urine Color Yellow Urine Appearance Clear (Clear) Urine pH 5.5 (4.5-7.5) Ur Specific [place] 1.011 (1.000-1.030) Urine Protein Negative (Negative) Urine Glucose (UA) Negative (Negative) Medications Administered Current Inpatient Medications Acetaminophen (Acetaminophen 325 Mg Tab) 650 mg PO Q4H PRN PRN Reason: Pain or Fever Stop: 09/14/23 22:23 Aspirin (Aspirin 81 Mg Ectab) 81 mg PO [facility] Stop: 09/15/23 08:59 Last Admin: 08/16/23 10:59 Dose: 81 mg Atorvastatin Calcium (Atorvastatin 20 Mg Tab) 20 mg PO [facility] Stop: 09/14/23 22:23 Last Admin: 08/16/23 00:24 Dose: 20 mg Benzonatate (Benzonatate 100 Mg Capsule) 100 mg PO TID PRN PRN Reason: Cough Stop: 09/14/23 22:23 Dextrose (Dextrose 50% 50 Ml Syringe) 25 - 50 ml IV UD PRN; Protocol PRN Reason: Hypoglycemia Protocol Stop: 09/14/23 22:23 Glucagon (Glucagon For Inj 1 Mg Vial) 1 mg SQ UD PRN; Protocol PRN Reason: Hypoglycemia Protocol Stop: 09/14/23 22:23 Glucose (Glucose 10 Tab/Tube) 4 - 8 tab PO UD PRN; Protocol PRN Reason: Hypoglycemia Treatment Stop: 09/14/23 22:23 Glucose (Glucose 40% Gel 15 Gm Tube) 15 - 30 gm PO UD PRN; Protocol PRN Reason: Hypoglycemia Protocol Stop: 09/14/23 22:23 Hydroxyzine HCl (Hydroxyzine Hcl 10 Mg Tab) 10 mg PO QID PRN PRN Reason: Anxiety Stop: 09/14/23 20:48 Last Admin: 08/16/23 00:24 Dose: 10 mg Potassium Chloride/Sodium Chloride (Normal Saline W/20 Meq Kcl) 20 meq in 1,000 mls @ 50 mls/hr IV .Q20H ONE; Protocol Stop: 08/16/23 16:43 Last Admin: 08/16/23 00:24 Dose: 50 mls/hr Insulin Aspart (Insulin Aspart Per Unit Charge) 0 units SC ACHS DELICIA Stop: 09/14/23 22:23 Last Admin: 08/16/23 12:47 Dose: 3 units Lisinopril (Lisinopril 10 Mg Tab) 10 mg PO QAM DELICIA Stop: 09/15/23 08:59 Last Admin: 08/16/23 10:28 Dose: 10 mg Miscellaneous (Carbohydrates For Hypoglycemia ) 15 - 30 gm PO UD PRN PRN Reason: Hypoglycemia Protocol Stop: 09/14/23 22:23
--- OUTSIDE RECORDS SUMMARY | 2023-08-16 16:14 | External Medical Summary | Summary of Care ---
Author Name Unknown Organization [facility] Address [address] [place] [address] Phone [phone] Care Team Providers Care Control Panel Operator Name Role Phone Carlos Manuel Valiente MD Primary Care Provider Reason for Visit * Reason Onset Date Comments Home Health 08/15/2023 Encounter Details Date Type Department Care Team (Late st Contact Info) Description 08/15/2023 Telephone Family Medicine [address] [place] [address] Carlso Manuel Valiente MD [address] [place], [place] [address] [phone] Home Health (/) Allergies No known active allergiesdocumented as of this encounter (statuses as of 08/15/2023) Medications Medication Sig Dispensed Refills Start Date [...] as of this encounter (statuses as of 08/15/2023) Active Problems Problem Noted Date Diagnosed Date [...] as of this encounter (statuses as of 08/15/2023) Resolved Problems Problem Noted Date Diagnosed Date [...] 010 Overview: Per Obesity Taxonomy LOC PRIM [id number] 03/2018 HTN, goal below 130/80 04/19 documented as of this encounter (statuses as of 08/15/2023) Immunizations Name Administration Dates Next Due COVID-19 mRNA, LNP-s, No Pre serve, 2-Dose Series (Pfizer) 09/07/2021,12/17/2020,11/19/2020 Pneumococcal Conjugate Vacc, 13 Valent (Prevnar) 09/18/2017 Pneumococcal Polysaccharide PPV23 (Pneumovax) 03/08/2012 Season Influenza, Quad, PF, Adjuvanted, 65+ Yrs, IM (FLUAD) 06/08/2020 Seasonal Influenza, PF, 6 M & above, IM , (FluLaval or Fluzone) 09/05/2018,09/18/2017 Seasonal Influenza, Quadriva lent Hd (Fluzone Hd) [...] encounter Miscellaneous Notes * Telephone Encounter - Blanca Plummer LPN - 08/15/2023 2:58 PM EST HH Concerns Toma POP, Calling from: Michael Narrative: Toma stated that patient is lightheaded and has been having blurred vision for the last 2 days. She is a diabetic who is non-compliant. She does not have a glucometer in the home. Her BP was 158/88 Toma wanted to send patient to the Hospital but Daughter wanted Toma to call the office to see if there was any acute appointments in the office. Advised that Non was available. Daughter is agreeable to send patient to the hospital. documented in this encounter Plan of Treatment Upcoming Encounters Date Type Department Care Team (Late st Contact Info) Description 01/17/2024 9:30 AM EDT Office Visit Family Medicine [address] [place] [phone] [place] [phone] Health Maintenance Due Date Last Done Comments [...] Additional history exists CKD HGB USE SMARTSET 32013 11/03/202311/02, 02/17/2021, 02/17/2021, Additional history exists CKD PHOS USE SMARTSET 39550 11/03/2023 03/0 03/2023, 02/17/2021, 05/08/2018, Additional history exists HbA1c 12/26/2023 06/26/2023, 03/0 03/2023, 06/16/2022, Additional history exists Albumin/Creatinine Ratio 06/26/2024 023, 06/17/2022, 02/18/2021, Additional history exists Diabetic Eye Exam 06/26/2024 06/26/2023, , 09/25/2020, Additional history exists Pneumococcal Vaccine: 65+ Years Completed 09/18/2017, 03/08/2012, 06/24/2002 VITAMIN D LEVEL ONCE IN A LIFETIME-USE SMARTSET# 64321 Completed 05/08/2018, 09/18/2017, 05/28/2010, Additional history exists GARDASIL-HPV IMMUNIZATION SERIES Aged Out No longer eligible based on patient's age to complete this topic MENINGOCOCCAL (MENACTRA/MENVEO) Aged Out No longer eligible based on patient's age to complete this topic documented as of this encounter Medical Devices Implanted Type Area Clean Room Technician Device Identifier Shelf Expiration Date Model / Serial / Lot Clip Quick 2.8mm 230cm - [id number] Implanted:Qty: 4 on 03/24/2021 by Mert Velasco MD at [facility] [employer] 10/26/2023 [id number] / / documented as of this encounter Care Teams Control Panel Operator Relationship Specialty Start Date End Date Carlos Manuel Valiente MD [address] [place] [address] [place] [id number] PCP - General 04/11/1996 documented as of this encounter
[2023-08-17 07:37] LABS: Basophils # (auto) 0.02 K/uL (0.00-0.20); Basophils % (auto) 0.4 %; Eosinophils # (auto) 0.06 K/uL (0.00-0.50); Eosinophils % (auto) 1.3 %; Hematocrit (blood only) 32.9 % (37.0-47.0); Hemoglobin 10.8 g/dl (12.0-16.0); Immature Granulocytes # (auto) 0.03 K/uL (0.01-0.20); Immature Granulocytes % (auto) 0.7 %; Lymphocytes # (auto) 1.49 K/uL (1.20-3.40); Lymphocytes % (auto) 32.9 %; Mean Corpuscular Hemoglobin 29.7 pg (25.0-34.0); Mean Corpuscular Hgb Conc 32.8 g/dL (32.0-36.0); Mean Corpuscular Volume 90.4 fL (80.0-100.0); Mean Platelet Volume 9.3 fL (9.4-12.4); Monocytes % (auto) 6.6 %; Neutrophils # (auto) 2.63 K/uL (1.40-6.50); Neutrophils % (auto) 58.1 %; Platelet Count 156 K/uL (130-400); RDW Coefficient of Variation 16.4 % (11.5-14.5); RDW Standard Deviation 54.6 fL (36.4-46.3); Red Blood Count 3.64 M/uL (4.20-5.40); White Blood Count 4.53 K/ul (4.8-10.8)
[2023-08-17 08:03] LABS: BUN Creatinine Ratio 23.8 (10-20); Calcium 8.5 mg/dl (8.6-10.3); Creatinine Clr Calc Pharmacy 46.2 ml/min; Est GFR (African American) 77.9 ml/min; Est GFR (Non-African American) 67.2 ml/min; Magnesium 1.9 mg/dl (1.7-2.4); Potassium 4.3 mmol/L (3.5-5.1)
[2023-08-17] MEDS: INSULIN ASPART PER UNIT CHARGE SC SCH (08:36)
[2023-08-17] MEDS: ASPIRIN 81 MG ECTAB PO SCH (08:36)
[2023-08-17] MEDS: lisinopril 10 MG TAB PO SCH (08:36)
[2023-08-17] MEDS ORDERED: lisinopril 10 MG TAB PO SCH (09:00)
--- NOTE | 2023-08-17 10:13 | Hospitalist Progress Note ---
Date of Service August 17, 2023 Assessment & Plan (1) Dizziness: Plan: With intermittent blurred vision-Outpatient Ophthalmology eval Rule out orthostasis given association with standing up-no significant orthostasis found Strongly advised to drink more fluid Will continue with PT and OT Has been feeling much better without any symptoms of dizziness Has had physical therapy evaluation and recommended home She will be discharged home this morning Uncontrolled hypertension (possible noncompliance) and anxiety possibly contributory Blood pressure seems to well-controlled Has been around 128/68 this morning on 08/16/2023 Blood pressure remains controlled Hyperlipidemia on statin therapy DM 2, on oral meds, Well controlled as of recent outpatient hemoglobin A1c of 6 last May 2023 Basal insulin, ISS BG goal 1 10-1 40, carb count coverage Blood sugar seems to be stable She will continue her usual medications for diabetes at home Possible functional disability Will need to have more PT and OT evaluation Chronic thrombocytopenia Platelet count has been normalized DVT prophylaxis. SCDs Re: Thrombocytopenia Will start subcu Lovenox Full code Patient requests for her daughter to be updated of plan of care. Ms. Heather Bermudez, contact #[phone]. Will be discharged home this morning Admission and Anticipated Discharge Date Admission Date: August 15, 2023 Subjective 08/16/2023 The patient was seen and examined in medical telemetry unit She was admitted with dizziness especially with ambulation and headache Has been feeling much better and will have formal physical therapy evaluation Denies any more headache and the visual symptoms are almost gone Remains generally weak 08/17/2023 The patient was seen and examined in medical telemetry unit She has been feeling much better and denies any symptoms whatsoever No more dizziness and she has had physical therapy and recommended home She will be discharged this afternoon Review of Systems Review of Systems: All systems reviewed and are unremarkable except as noted below Physical Exam Physical Exam: Lying in bed comfortably Constitutional: well developed, well nourished, + ill appearing and + obese Eyes: PERRL, conjunctivae normal, anicteric sclerae ENMT: external ear and nose normal, oropharynx normal Neck: trachea midline, no thyromegaly Respiratory: no respiratory distress Auscultation: lungs clear to auscultation bilaterally Cardiovascular: Rate/Rhythm: regular rate and regular rhythm; not tachycardic Heart Sounds: normal S1 and normal S2; no murmur Extremities: + edema (Trace edema bilaterally) Gastrointestinal (Abdomen): Inspection/Auscultation: normal bowel sounds; abdomen not distended Percussion/Palpation: abdomen soft; abdomen nontender Neurologic: normal touch/pain/proprioception and moves all extremities; no focal motor deficits Lymphatic: no cervical or axillary lymphadenopathy Results & Data Results & Data Vital Signs (Past 12 Hours) Vital Signs Temp Pulse Pulse Resp BP BP Pulse Ox 08/17/23 08:27 36.6 C 81 18 130/75 96 08/17/23 07:55 08/17/23 07:37 69 08/17/23 02:58 36.8 C 81 18 123/56 L 96 08/17/23 00:02 99 H 08/16/23 23:29 36.9 C 91 H 18 108/65 97 O2 Del Method 08/17/23 08:27 Room Air 08/17/23 07:55 Room Air 08/17/23 07:37 08/17/23 02:58 Room Air 08/17/23 00:02 08/16/23 23:29 Room Air Laboratory Results Short CBC 08/17/23 Range/Units 07:15 WBC 4.53 L (4.8-10.8) K/ul Hgb 10.8 L (12.0-16.0) g/dl Hct 32.9 L (37.0-47.0) % Plt Count 156 (130-400) K/uL BMP 08/17/23 07:15 Sodium 140 Potassium 4.3 Chloride 110 H Carbon Dioxide 28 BUN 19 Creatinine 0.80 Glucose 109 H Calcium 8.5 L Medications Administered Current Inpatient Medications Acetaminophen (Acetaminophen 325 Mg Tab) 650 mg PO Q4H PRN PRN Reason: Pain or Fever Stop: 09/14/23 22:23 Aspirin (Aspirin 81 Mg Ectab) 81 mg PO QAM DELICIA Stop: 09/15/23 08:59 Last Admin: 08/17/23 08:36 Dose: 81 mg Atorvastatin Calcium (Atorvastatin 20 Mg Tab) 20 mg PO HS DELICIA Stop: 09/14/23 22:23 Last Admin: 08/16/23 20:46 Dose: 20 mg Benzonatate (Benzonatate 100 Mg Capsule) 100 mg PO TID PRN PRN Reason: Cough Stop: 09/14/23 22:23 Dextrose (Dextrose 50% 50 Ml Syringe) 25 - 50 ml IV UD PRN; Protocol PRN Reason: Hypoglycemia Protocol Stop: 09/14/23 22:23 Glucagon (Glucagon For Inj 1 Mg Vial) 1 mg SQ UD PRN; Protocol PRN Reason: Hypoglycemia Protocol Stop: 09/14/23 22:23 Glucose (Glucose 10 Tab/Tube) 4 - 8 tab PO UD PRN; Protocol PRN Reason: Hypoglycemia Treatment Stop: 09/14/23 22:23 Glucose (Glucose 40% Gel 15 Gm Tube) 15 - 30 gm PO UD PRN; Protocol PRN Reason: Hypoglycemia Protocol Stop: 09/14/23 22:23 Hydroxyzine HCl (Hydroxyzine Hcl 10 Mg Tab) 10 mg PO QID PRN PRN Reason: Anxiety Stop: 09/14/23 20:48 Last Admin: 08/16/23 00:24 Dose: 10 mg Insulin Aspart (Insulin Aspart Per Unit Charge) 0 units SC ACHS [facility] Stop: 09/14/23 22:23 Last Admin: 08/17/23 08:36 Dose: Not Given Lisinopril (Lisinopril 10 Mg Tab) 10 mg PO QAM [facility] Stop: 09/15/23 08:59 Last Admin: 08/17/23 08:36 Dose: 10 mg Miscellaneous (Carbohydrates For Hypoglycemia ) 15 - 30 gm PO UD PRN PRN Reason: Hypoglycemia Protocol Stop: 09/14/23 22:23
--- NOTE | 2023-08-17 16:49 | Discharge Summary ---
Date of Service August 17, 2023 Admission HPI Per Admitting Provider History obtained from patient, family, and records. Medical history significant for HTN, hyperlipidemia, DM 2 on oral meds, chronic thrombocytopenia, memory impairment as per records Recent confinement last month for COVID-19 pneumonia. Yesterday morning, patient woke up with dizziness described as lightheadedness more pronounced on standing up with intermittent bilateral blurred vision. No headache, no chest pain, no SOB. No eye pain complaints. No slurred speech, facial droop, arm or leg weakness. Patient anxious from being alone at home as per daughter. Not eating as well. Patient does not check blood pressure at home and not sure about home meds. Patient brought to the ER for evaluation. SBP 160s upon arrival. Blurred vision symptoms resolved. 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 Admission Exam Per Admitting Provider Physical Exam: GENERAL: Slightly uncomfortable, anxious, looks younger for stated age, obese, no respiratory distress SKIN: Normal color, warm HEENT: [place] palpebral conjunctivae, no ptosis, dry buccal mucosa NECK : Supple, short neck, no tenderness CHEST : CTA, no tenderness HEART : RRR, no obvious murmurs ABDOMEN: Some distention, nontender EXTREMITIES : minimal LE swelling without tenderness, no other conspicuous deformities noted NEUROLOGIC : Coherent, no facial asymmetry, no other gross focality Principal Diagnosis Dizziness, uncontrolled hypertension, type 2 diabetes Discharge Exam Lying in bed comfortably Constitutional well developed, well nourished, + ill appearing and + obese Eyes PERRL, conjunctivae normal, anicteric sclerae ENMT external ear and nose normal, oropharynx normal Neck trachea midline, no thyromegaly Respiratory no respiratory distress Auscultation: lungs clear to auscultation bilaterally Cardiovascular Rate/Rhythm: regular rate and regular rhythm; not tachycardic Heart Sounds: normal S1 and normal S2; no murmur Extremities: + edema (Trace edema bilaterally) Gastrointestinal (Abdomen) Inspection/Auscultation: normal bowel sounds; abdomen not distended Percussion/Palpation: abdomen soft; abdomen nontender Neurologic normal touch/pain/proprioception and moves all extremities; no focal motor deficits Lymphatic no cervical or axillary lymphadenopathy Discharge Data Allergies Allergy/AdvReac Type Severity Reaction Status Date / Time amoxicillin [From Augmentin] Allergy Intermediate poss Verified 07/13/23 12:21 vascultic rash clavulanic acid Allergy Intermediate poss Verified 07/13/23 12:21 [From Augmentin] vascultic rash Consultations 08/15/23 19:49 ED Decision to Admit Stat Ordered Studies 08/15/23 16:45 CT head/brain wo con Stat Hospital Course (1) Dizziness: With intermittent blurred vision-Outpatient Ophthalmology eval Rule out orthostasis given association with standing up-no significant orthostasis found Strongly advised to drink more fluid Will continue with PT and OT Has been feeling much better without any symptoms of dizziness Has had physical therapy evaluation and recommended home She will be discharged home this morning Uncontrolled hypertension (possible noncompliance) and anxiety possibly contributory Blood pressure seems to well-controlled Has been around 128/68 this morning on 08/16/2023 Blood pressure remains controlled Hyperlipidemia on statin therapy DM 2, on oral meds, Well controlled as of recent outpatient hemoglobin A1c of 6 last May 2023 Basal insulin, ISS BG goal 1 10-1 40, carb count coverage Blood sugar seems to be stable She will continue her usual medications for diabetes at home Possible functional disability Will need to have more PT and OT evaluation Chronic thrombocytopenia Platelet count has been normalized DVT prophylaxis. SCDs Re: Thrombocytopenia Will start subcu Lovenox Full code Patient requests for her daughter to be updated of plan of care. Ms. Heather Bermudez, contact #[phone]. Will be discharged home this morning Total Time Total Time Spent Total Time Spent (In Minutes): 35 minutes Discharge Plan Discharge Items Patient Disposition: Home - Self-Care Reason For Visit: DIZZINESS (PX REQ TO BE ADMITTED TO W ANOTHER F Discharge Diagnosis: Dizziness, uncontrolled hypertension, type 2 diabetes Condition on Discharge: Good Activity: Resume your previous activity Non-emergency contact: Primary Care Provider Call non-emergency contact if: you have any medication questions and your symptoms worsen Follow-up/Referrals: Carlos Manuel Valiente MD [Primary Care Provider] - (Date & Time 08/24/2023 3:00 PM Provider Carlos Manuel Valiente MD Department Family Medicine [facility] ) Diet: Carb Consistent or DM2 and Heart Healthy Addtl Attending Provider Instructions: Please take precautions to avoid falls Try to drink more fluid Take your medications as advised-no change in your medications Please give appointments with your healthcare providers You will need to have an appointment with an manager equipment for your blurry of vision Pending Studies at Discharge: No Stand-Alone Forms: My [facility], Smoking Cessation Medications and DC Order Prescriptions: Continued aspirin [Edwin Low Dose Aspirin] 81 mg Tablet,Delayed Release (Dr/Ec) 81 mg PO QAM atorvastatin 20 mg Tablet 20 mg PO HS atorvastatin 20 mg tablet 20 mg PO QAM lisinopril 10 mg tablet 10 mg PO DAILY pioglitazone 30 mg tablet 30 mg PO QAM diclofenac sodium 50 mg tablet,delayed release (DR/EC) 50 mg PO TID PRN (Reason: Pain) benzonatate 100 mg capsule 100 mg PO TID PRN (Reason: Cough) Discharge Orders: Discharge Order (Routine); Ordered 08/17/23 Ordered By: Nhi Garcia Admission Data Admit Date/Time: 08/15/23 20:46 Attending Provider: Nhi Garcia Admit Provider: Matthias Bradley Primary Care Provider: Carlos Manuel Valiente Other Providers: Matthias Bradley; Shane Rodriguez [facility] Other Interventions: Discharge Summary Assessment (RN) Last Done: 08/17/23 12:28
--- NOTE | 2023-08-18 06:29 | Electrocardiogram Report ---
Test Reason : Blood Pressure : / mmHG Vent. Rate : 086 BPM Atrial Rate : 086 BPM P-R Int : 172 ms QRS Dur : 082 ms QT Int : 372 ms P-R-T Axes : 037 016 046 degrees QTc Int : 445 ms Sinus rhythm with Premature atrial complexes Otherwise normal ECG When compared with ECG of 13-JUL-2023 07:52, Premature atrial complexes are now Present Confirmed by Roger Fields ([id number]) on 08/18/2023 6:29:12 AM Referred By: REFERRED SELF Confirmed By:Roger Fields
== END 2023-08-17 13:32 | disposition home health service (06) ==
LOC: 2N 16:17 → ED 16:17 → 2N 21:51